=== PATIENT | female | born 1945 | race Caucasian/White ===

== ENCOUNTER 2018-03-06 09:40 | Emergency (ER) | payer MEDICARE, OTHER, SELFPAY ==
[2018-03-06 09:42] VITALS: BP 139/95; PULSE 52; RESP 18; TEMP 36.9; O2SAT 95; BMI 40.4
--- NOTE | 2018-03-06 09:59 | CT_ITS ---
STUDY: CT ABDOMEN AND PELVIS WITHOUT CONTRAST REASON FOR EXAM: Female, 72 years old. RIGHT FLANK PAIN HX-KIDNEY CA,HEART STENT,HTN RADIATION DOSAGE (If Supplied By Facility): CTDIvol = ( 32.43 ) mGy, DLP = ( 1628.59 ) mGycm TECHNIQUE: Transaxial images were obtained from the dome of the diaphragm to the symphysis pubis without oral contrast, and without intravenous contrast. Sagittal and coronal images were reconstructed. Individualized dose optimization techniques were used for this CT. COMPARISON: None. FINDINGS: The visualized lung bases are unremarkable. The visualized portions of the heart are within normal limits. Normal liver. There are surgical clips in the gallbladder fossa consistent with a prior cholecystectomy. Normal spleen. Normal pancreas. Normal right adrenal gland left adrenal gland is not visualized. Normal right kidney. The left kidney is absent presumably has been surgically removed. Normal visualized stomach. Normal small intestine. There are multiple colonic diverticula consistent with diverticulosis. The appendix is visualized and appears normal. There is diffuse atherosclerotic calcification of the abdominal aorta, without a demonstrated aneurysm. Normal inferior vena cava. Normal retroperitoneum. Normal urinary bladder. There is a small umbilical hernia containing fat. There are diffuse degenerative changes of the visualized lumbar spine. CT/Abdomen/Pelvis without Cont IMPRESSION: There is a fat-containing mass in the anterior anterior abdominal wall on the right side measures 10 times centimeter in diameter most likely a lipoma a follow-up may be warranted to ensure stability. Colon diverticulosis. Electronically Signed: Tianna Raymond MD at 11:54 EDT Tel , Service support ,
--- NOTE | 2018-03-06 10:01 | ED.DCSUM_ITS ---
- ER Visit Summary Date of Service: 03/06/18 Chief Complaint: Right back pain History of Present Illness: The patient is a 72 F who states that on of last week she woke up with pain in the right low back. She states that it has been a constant aching/pulsating sensation. It occasionally becomes sharp and stabbing and is particularly worse with movement. Patient states that she saw her doctor on Tuesday who felt it was muscular and she should take Tylenol. Patient states it did not help. She notes nausea. She now notes urinary frequency and increased in her amount of incontinence. She denies any hematuria. She notes no fevers. She states that her bowel movements have been normal. She has had prior left-sided nephrectomy. She has chronic kidney disease stage III. Physical Examination: Afebrile vital signs are stable Gen: Well-nourished well-developed obese Head: Normocephalic atraumatic Eyes: Perrl EOMI ENT: TMs clear no rhinorrhea moist mucous membranes Neck: Supple no lymphadenopathy no JVD nontender CVS: Regular rate rhythm no murmurs normal S1-S2 Respiratory: No distress clear to auscultation bilaterally chest nontender Abdomen: Soft nontender nondistended normal bowel sounds no masses Back: Tender to palpation in the lumbar paraspinal musculature on the right. Extremity: Nontender no edema Skin: Normal color no rash Neuro: alert orientated ?3 CN II-XII intact normal strength sensation reflexes gait cerebellar Psych: Anxious Test Results: Patient was given OxyIR and states it did not really help her pain. CBC BMP with creatinine 1.37 normal white count. Urinalysis which was straight cath was normal. CT of the flank demonstrated a large lipoma but otherwise no acute findings. She received additional value. This point believe this to be muscular. She will follow-up with her doctor I will write for Impression: 1. Right flank pain This note was generated with [employer] dictation software. It may contain incorrect words, spelling, and punctuation that were not noted in review of the chart prior to signing ED Disposition - Plan for ED Patient: Disposition: Home or Assisted Living Chief Complaint: Complaint Instructions: ED Spasm Back No Trauma Prescriptions: Hydrocodone Bitart/Apap 5-325 [[place] 5MG-325MG] 1 tab PO Q6H PRN PRN 3 Days #10 tab PRN Reason: Pain Diazepam [Valium] 5 mg PO Q8 PRN #15 tab PRN Reason: Muscle Spasm Referrals: Randy Saldivar MD [Primary Care Provider] - 3-5 Days if not improving
[2018-03-06] MEDS: oxyCODONE 5 MG Tablet PO (10:08)
[2018-03-06 10:50] LABS: Absolute Neutrophil Count 3.3 X10^3/uL (2.0-7.7); Basophil# 0.01 X10^3/uL; Basophil% 0.2 % (0-1); Eosinophil# 0.09 X10^3/uL; Eosinophils% 1.7 % (0-5); Hematocrit 39.7 % (37-47); Hemoglobin 13.3 g/dl (12.0-15.0); Lymphocyte % 28.4 % (19-41); Mean Corp Hgb Conc 33.5 g/gl (32-36); Mean Corpuscular Hgb 31.4 pg (27.0-32.0); Mean Corpuscular Volume 93.6 fL (81-99); Mean Platelet Vol. 11.2 fl (6.2-12.0); Monocyte# 0.42 X10^3/uL; Monocyte% 7.9 % (0-10); Neutrophil # 3.25 X10^3/uL (2.7-7.7); Neutrophil % 61.4 % (47-70); Platelet Count 152 K/mm3 (150-450); RBC Distribution Width CV 13.8 % (11.6-14.6); RBC Distribution Width SD 45.2 fl (35.1-43.9); Red Blood Count 4.24 M/mm3 (4.2-5.4); White Blood Count 5.3 K/mm3 (4.4-11.0)
[2018-03-06 10:51] LABS: POSITIVE COUNT NO; POSITIVE DIFFERENTIAL NO; POSITIVE MORPHOLOGY NO
[2018-03-06 11:01] LABS: Anion Gap 6 (5-15); BUN 15 mg/dL (7-18); BUN/Creat Ratio 10.9 RATIO (10-20); Chloride 103 mmol/L (98-107); Creatinine, Serum 1.37 mg/dL (0.55-1.02); EST Glomerular Filtration Rate 40 mL/min (>60); Est Glom Filt Rate - Afr Amer 49 mL/min (>60); Estimated Creatinine Clearance 31.16 ml/min; Glucose 103 mg/dL (74-106); Potassium 3.4 mmol/L (3.5-5.1); Sodium Level 139 mmol/L (136-145)
[2018-03-06 11:48] LABS: Mucous, Urine 0 SEEN /hpf (<or=2+); Red Blood Cells-Urine 0 SEEN /hpf (0-5)
[2018-03-06 11:49] LABS: Color, Urine Yellow (Yellow); Glucose, Dipstick Normal (Normal); Ketone-Dipstick Negative (Negative); Leukocyte Esterase-Dipstick 100 /ul (Negative); Nitrite-Dipstick Negative (Negative); Occult Blood-Urine Negative /ul (Negative); Protein-Dipstick Negative (Negative); Urine Bilirubin Dipstick Negative (Negative); Urine Clarity Clear (Clear); Urine Urobilinogen Normal (Normal)
[2018-03-06 11:57] LABS: Bacteria 2+ /hpf (None Seen); Squamous Epithelial Cells - UA 0-5 SEEN /hpf (5-10); White Blood Cells 0-5 SEEN /hpf (0-5)
[2018-03-06 12:33] VITALS: BP 144/60; PULSE 48; RESP 16; O2SAT 96
[2018-03-06] MEDS: Ondansetron ODT 4 MG Tablet PO (12:38)
[2018-03-06 13:56] VITALS: BP 119/67; PULSE 74; RESP 15; O2SAT 98
== END 2018-03-06 13:58 | disposition home or self-care (01) ==
PROVIDERS: Emergency Provider Emergency Medicine; Family Provider Family Medicine; PCP Family Medicine
DX: R10.9 Unspecified abdominal pain (principal); I12.9 Hypertensive chronic kidney disease with stage 1 through stage 4 chronic kidney disease, or unspecified chronic kidney disease; E11.22 Type 2 diabetes mellitus with diabetic chronic kidney disease; N18.3 Chronic kidney disease, stage 3 (moderate); I25.10 Atherosclerotic heart disease of native coronary artery without angina pectoris; E66.9 Obesity, unspecified; Z90.5 Acquired absence of kidney; Z79.82 Long term (current) use of aspirin; Z79.899 Other long term (current) drug therapy
CPT/HCPCS: 74176; 80048; 81001; 85025; 99285; P9612; A4216

== ENCOUNTER 2018-05-25 13:00 | Outpatient (RCR) | payer MEDICARE, OTHER, SELFPAY ==
--- NOTE | 2018-03-17 15:32 | HP.PTEVAL_ITS ---
Patient's Visit Information MICA HART is a 72 year old F referred to Physical Therapy by DELILAH Banuelos with a diagnosis of Thoracic back pain.. Date of Evaluation: 03/17/18 Physical Therapist: JOSLYN McclainT, OC - Visit Plan Frequency: 2x /Week Duration: 4-6 Weeks Plan: 2x/week for 4-6 weeks for LB treatment including NS education and strength , stretching of LB adn TENS with MH as needed. When back feeling better, consider more thourough balance eval and treatment. - Subjective Subjective: My back and upper middle back hurts and muscle spasm taking her to ER last week. They thought it was muscle spasms. Only has one kidney. Gave her vicodin and valium whcih helped. Then went to nurse practitioner who gave her prednisone for 5 days. They help a little bit. Has been in pain for one week. No upper back pain prior. Does hav ehistory of LBP. Uses cane for balance as it is challenged. Just woke up with upper back pain. No different activities. Overall currently is 40+% better than last week. Sleep is OK currently once she gets settled in. Getting up for restroom is bad. has helped her. Does not work, retired from [employer]. Spends day bummin around, has not done that as much lately due to balance more than anything. Also avoiding alot of walking due to this pain. Still goes to grocery store but hurts afterwards. Basic ADLs are OK. - Pain Low back L>R Pain Intensity (Out of 10): 5 Pain Intensity Range: 4, 10 - Objective Walks with cane btu does not use at home. Trasnfers with UE I. Walks without cane I but slow on firm surface. LE Strength 4-/5, pain with L hip flexion. Sensation LE WNL to gross light touch. reflexes 2/3 patella and achilles. LB AROM ext pain on R upper lumbar, R SB hurts and L SB not bad. flexion is OK. HS and gastroc tight. Hurts bad to transition to supine, slightly better with sidelying, tightness in hip flexor. - Balance Scores Functional Gait Assessment Score: 19 % Disability: 36.6700 - Goals Goal 1:: patient report 75% improvement in LBP to 2/10 at worst adn intermittent. Goal Time Frame: 4-6 Weeks Goal 2:: FGA to reduce fall risk Goal Time Frame: 4-6 Weeks Goal 3:: I approp EHP to minimize future problems with back pain. Goal Time Frame: 4-6 Weeks Goal 4:: Trasnition to and fro supine without evidence of pain. Goal Time Frame: 4-6 Weeks - Rehabilitation Potential Physical Therapy Diagnosis: Low back pain Rehabilitation Potential: Fair - Anticipated Interventions Patient/Client Instruction: Educate patient on: Condition, Plan of Care For the Purpose of:: To improve ability of physical actions for home/community/ work/leisure, To improve safety with gait Therapeutic Exercise to Include: Strength training, Balance training, Active ROM , Dynamic Lumbar Stabilization For the Purpose of:: To decrease pain, To increase tolerance to activity/ condition/position, To improve ability of physical actions for home/community/ work/leisure, To improve gait and locomotor functions TENS: Yes Thermo therapy (hot pack): Yes For the Purpose of:: To decrease pain, To decrease swelling/inflammation Thank you for the opportunity to evaluate your patient. For Medicare and Medicare HMO plans, please review the plan of care and approve it. It will need to be FAXED BACK to us at [phone] for Medicare purposes. Please let me know if there are questions or concerns regarding this plan of care. Physician Signature: Date:
--- NOTE | 2018-04-07 10:58 | HP.PTREVAL_ITS ---
Annemarie Rojaslogpedro luis, WINDSURFING INSTRUCTOR-C, It has been my pleasure to treat MICA HART over the last 6 visits for Thoracic back pain.. Please see the progress note below for an update on the physical therapy plan of care! Subjective: Learning how to get out of bed has helped. Pain last couple days has been nonexistent. Neutral spine. Doing ex at home for neutral spine. Wants to wrok on balance, using cane when doesn't forget but does not like it. Turning is challenging but no dizzyness. Objective/Function: VOR very challenging for patient. FGA same as last time. LB ROM WFL and without paion today, starteed to get some mild transient pain as she walked further today 250 feet. OVERALL MUCH BETTER ON LBO AND NOW NEEDS BALANCE WORK. Plan Plan: 2X/WEEK FOR 3-4 WEEKS... 1. please teach for HEP a bug ex or two for NS DLS and give pics. Then main focus should be on balance...confidence with walking and turning, VOR ambulation and stance, weight shifts forward and bend and recover. Work to HEP. Goals Goal 1:: patient report 75% improvement in LBP to 2/10 at worst adn intermittent. Goal Time Frame: 4-6 Weeks Goal Progress: Goal Met Goal 2:: FGA to reduce fall risk Goal Time Frame: 4-6 Weeks Goal Progress: still approp. Goal 3:: I approp EHP to minimize future problems with back pain. Goal Time Frame: 4-6 Weeks Goal Progress: Progressing Goal 4:: Trasnition to and fro supine without evidence of pain. Goal Time Frame: 4-6 Weeks Goal Progress: Goal Met Anticipated Interventions Patient/Client Instruction: Educate patient on: Condition, Plan of Care For the Purpose of:: To improve ability of physical actions for home/community/ work/leisure, To improve safety with gait Therapeutic Exercise to Include: Strength training, Balance training, Active ROM , Dynamic Lumbar Stabilization For the Purpose of:: To decrease pain, To increase tolerance to activity/ condition/position, To improve ability of physical actions for home/community/ work/leisure, To improve gait and locomotor functions TENS: Yes Thermo therapy (hot pack): Yes For the Purpose of:: To decrease pain, To decrease swelling/inflammation Please do not hesitate to contact me at [phone] by phone or Fax: if you have questions or concerns regarding this new plan of care! Sincerely, Giuseppe Pires, DPT, OC
--- NOTE | 2018-04-27 13:54 | HP.PTREVAL ---
Annemarie Podlogpedro luis, MANUFACTURING ENGINEERING PROFESSOR-C, It has been my pleasure to treat MICA HART over the last 11 visits for Thoracic back pain.. Please see the progress note below for an update on the physical therapy plan of care! Subjective: Tired but back pain better. Just slightly achy in LB but no bad pain that brought her here in the last two weeks. Balance and movement better at home. Getting out of bed well. Showering and transfers are good. To doctor end of May. Doing back strength and balance work at home. Wants ot be abole to walk by self without cane. Has done it a little at home but feels wobbly out and about. Objective/Function: Pt one point improved on FGA. Gets up out of chair without need for UE. Unable to walk and do VOR at same time. Eyes will not stay on target even in stance. Steps are reciprocal with one rail but very tired and mild SOB at end. No c/o LBP and ROM WFL. Plan Plan: 2x/week for 4 weeks. 1. gait without cane with challenges of CV and balance. 2. VOR balance progression. Fair prognosis Goals Goal 1:: patient report 75% improvement in LBP to 2/10 at worst adn intermittent. Goal Time Frame: 4-6 Weeks Goal Progress: Goal Met Goal 2:: FGA to reduce fall risk Goal Time Frame: 4-6 Weeks Goal Progress: progressing slowly Goal 3:: I approp EHP to minimize future problems with back pain. Goal Time Frame: 4-6 Weeks Goal Progress: Goal Met Goal 4:: Trasnition to and fro supine without evidence of pain. Goal Time Frame: 4-6 Weeks Goal Progress: Goal Met Goal 5:: VOR standing without LOB for 60 sec Goal Time Frame: 2-4 Weeks Goal Progress: NEW GOAL Goal 6:: Pt feel comfortable and be safe walking in community without cane 50% of time. Goal Time Frame: 2-4 Weeks Goal Progress: NEW GOAL Anticipated Interventions Patient/Client Instruction: Educate patient on: Condition, Plan of Care For the Purpose of:: To improve ability of physical actions for home/community/work/leisure, To improve safety with gait Therapeutic Exercise to Include: Strength training, Balance training, Active ROM, Dynamic Lumbar Stabilization For the Purpose of:: To decrease pain, To increase tolerance to activity/condition/position, To improve ability of physical actions for home/community/work/leisure, To improve gait and locomotor functions TENS: Yes Thermo therapy (hot pack): Yes For the Purpose of:: To decrease pain, To decrease swelling/inflammation Please do not hesitate to contact me at [phone] by phone or if you have questions or concerns regarding this new plan of care! Sincerely, Giuseppe Pires, DPT, OC
--- NOTE | 2018-05-29 12:20 | HP.PTDCNRP_ITS ---
HP - Discharge Summary (1) - Patient Information MICA HART was seen in my office for initial evaluation on 03/17/18. The following Plan of Care was established for this patient: Initial Frequency: 2x /Week Initial Duration: 4-6 Weeks - Anticipated Interventions Patient/Client Instruction: Educate patient on: Condition, Plan of Care For the Purpose of:: To improve ability of physical actions for home/community/w ork/leisure, To improve safety with gait Therapeutic Exercise to Include: Strength training, Balance training, Active ROM, Dynamic Lumbar Stabilization For the Purpose of:: To decrease pain, To increase tolerance to activity/condition/position, To improve ability of physical actions for home/community/work/leisure, To improve gait and locomotor functions TENS: Yes Thermo therapy (hot pack): Yes For the Purpose of:: To decrease pain, To decrease swelling/inflammation This patient was last seen in our office 05/25/18. Pertinent comments regarding their Physical therapy will appear below: Pt seen 15 visits of POC. Has cancelled a whole bunch of visits recently including her recheck stating she wanted to f/u with her primary care before having any more PT. Will discontinue from PT at patient's request. At this point I will be discontinuing this patient from physical therapy. I would be happy to see this patient again in the future if found appropriate by the physician. Thank you! Giuseppe Pires, DPT, OC
== END 2018-05-25 19:00 | disposition home or self-care (01) ==
LOC: PT 13:00
PROVIDERS: Family Provider Family Medicine; PCP Family Medicine; Visit Provider Nurse Practitioner Primary Care
DX: M54.6 Pain in thoracic spine (principal)
CPT/HCPCS: 97110; 97162; 97530

== ENCOUNTER → 2018-09-22 12:21 | Outpatient (CLI) | payer MEDICARE, OTHER, SELFPAY ==
--- NOTE | 2018-09-22 12:24 | BI_ITS ---
MAMMOGRAPHY - BILATERAL SCREENING REASON FOR EXAM: Female, 73 years old. Routine annual screening examination. PERTINENT HISTORY: Grandmother with breast cancer. Aunt with breast cancer. TECHNIQUE: Digital bilateral breast jonah (3D mammographic acquisition) in the CC and MLO projections. 2-D mediolateral oblique (MLO) and craniocaudad (CC) views of both breasts were obtained. CAD: Full Field Digital Mammography with Computer Added Detection was performed. COMPARISON: Comparison is made with prior examination dated October 11, 2016 and November 06, 2014. FINDINGS: Breast Composition: There are scattered areas of fibroglandular density. There are no dominant masses or suspicious calcifications. Stable benign-appearing bilateral axillary lymph nodes. Stable 6 mm well-defined nodule in the upper lateral portion of the left breast. No other significant abnormalities are identified. There has been no significant change since the prior study. BI/SCREENING MAMM (CAD), BILAT IMPRESSION: Stable bilateral screening mammogram. Yearly follow-up mammogram recommended. (A) ASSESSMENT CATEGORY: BIRADS Category 2: Benign. A letter regarding these results will be sent to the patient by the facility within 30 days. Approximately 10% of breast cancers are not detected by mammography. A normal mammogram should not delay biopsy of a clinically suspicious abnormality. [id number] Electronically Signed: Dov Olivas MD at 14:28 EST , Service support ,
== END ==
PROVIDERS: Family Provider Family Medicine; PCP Family Medicine; Visit Provider Nurse Practitioner Primary Care
DX: Z12.31 Encounter for screening mammogram for malignant neoplasm of breast (principal)
CPT/HCPCS: 77063; 77067

== ENCOUNTER 2018-11-24 12:00 | Outpatient (RCR) | payer MEDICARE, OTHER, SELFPAY ==
--- NOTE | 2018-10-31 12:31 | HP.PTEVAL_ITS ---
Patient's Visit Information MICA HART is a 73 year old F referred to Physical Therapy by Randy Saldivar MD with a diagnosis of recurrent falls and vertigo.. Date of Evaluation: 10/31/18 Physical Therapist: Giuseppe Pires DPT, OCS, CSCS - Visit Plan Frequency: 2x /Week Duration: 4-6 Weeks Plan: 2x/week for 4-6 for balance, strength adn conditioning toward HEP. Monitor need for further vestibular interventions. Next session recheck positional as Misha treatment was questionable due to patients immobility in rolling. Will need to schedule rest of plan of care depending on psoitional and possible HEP of VOR. - Subjective Findings: Doctor wanted to have therapy on balance due to falling. Fell two months ago for no reason. Uses wh walker all the time. Has not fallen with the walker. Used it for 6 weeks as was falling alot. Had cane prior. Also states she fell 3 weeks ago coming out of residence and started veering L and could not stop. Hard to get up off of floor without help of big son. Gets dizzy spinning 3x/week and lies down. Described as SANTANA. Lying down seems to help it. No treatment for SANTANA , will see [facility] neurologist 11/23. First time. Has neuropathy but no diabetes. Numbness in feet and not sure why. Has foot doctor who says she is not feeling her legs right. Sleeping well. Not employed but been busy with son's surgery [place] him [place] Home today. Enjoys being on the go at flea Markets and out to lunch. Hasn't been able to do that due to falls. Been falling for 14 months. Had PT in May but did not finish due to fall and crack ribs. Basic ADL: dressing Ok, bathroom OK, showers self with bathboard to sit on. Steps has 3 and has railing. - Objective Walks with wheeled rollator back to PT I, trasnfer chair I. Steps prefers R and needs rail, very weak and hard to push up step. Walked 250 feet and then needed break due to SOB. C/S aROM WFL at 50 B rotationa dn 40 ext without pain., UE AROM WFL to 125 elevation. reflexes 1/3 bi and tri. Sensation UE WNL to gross light toucha nd feet seem to have some deficits to gross light touch distally. Strength LE 4-/5 to testing. Oculomotor: pursuit is saccadic to the R, Saccadesa re OK. VOR gives dizzyness after 15 seconds horiz 2/10 for 15 seconds. convergence is slow,-skew eye deviation. - head thrust. - R hallpike, - L hallpike but asymmtric dizzyness with L Hallpike and treated with L Misha. coordination to reciprocal toe tap is poor. Heel toe raises able with support. - Balance Scores Functional Gait Assessment Score: 18 % Disability: 40.0000 CATSIB Score (Max score 120 seconds): 60 - Goals Goal 1:: FGa to diminish fall risk. Goal Time Frame: 4-6 Weeks Goal 2:: Abolish vertigo feelings of dizzyness Goal Time Frame: 4-6 Weeks Goal 3:: Pt able to fo out to lunch with friends without being warn out;. Goal Time Frame: 4-6 Weeks Goal 4:: I approp HEp to minimize future risk. Goal Time Frame: 4-6 Weeks - Rehabilitation Potential Physical Therapy Diagnosis: imbalance and vertigo. Rehabilitation Potential: Fair - Anticipated Interventions Patient/Client Instruction: Educate patient on: Condition, Plan of Care For the Purpose of:: To improve muscle performance and motor function, To improve ability of physical actions for home/community/work/leisure, To improve safety Therapeutic Exercise to Include: Strength training, Endurance training, Balance training, Gait and locomotor training Comment: vestibular ex For the Purpose of:: To increase tolerance to activity/condition/position, To improve ability of physical actions for home/community/work/leisure, To improve safety Thank you for the opportunity to evaluate your patient. For Medicare and Medicare HMO plans, please review the plan of care and approve it. It will need to be FAXED BACK to us at [phone] for Medicare purposes. For Medicare only, by signing this I certify the plan of care. Please let me know if there are questions or concerns regarding this plan of care. Physician Signature: Date:
--- NOTE | 2018-11-24 12:24 | HP.PTDCSUM_ITS ---
HP - PT D/C Summary It has been my pleasure to treat MICA HART under orders from Randy Saldivar MD, for the diagnosis of recurrent falls and vertigo. for a total of 4 visit(s). Discharge Date: 11/24/18 Please see the following information for a summary of their discharge status. - Subjective Subjective: Better, a good week and no bad SANTANA. Went to [place] yesterday. Will f/u in a month. Balance feels better. Getting around real good with wh walker. Doing VOR and back exercises. They are no problem. Feels stable with the walker and does nto mind using it. - Overall Improvement % Improvement: 80 - Objective Objective/Function: FGA +4 overall and happily using the wh walker. Walks quickly and efficiently with it. Happy. No dizzyness with head turns or nods. OVERALL MUCH BETTER AND WANTS TO COTNINUE ON HER OWN. - Goals Goal 1:: FGa to diminish fall risk. Goal Progress: Goal Met Goal 2:: Abolish vertigo feelings of dizzyness Goal Progress: Goal Met Goal 3:: Pt able to fo out to lunch with friends without being warn out;. Goal Progress: Goal Met Goal 4:: I approp HEp to minimize future risk. Goal Progress: Goal Met - Plan Plan: D/C - D/C Information Discharge Comments: Doing better and happily using wh walker. Will cotninue HEP and f/u with doctor next week. If there are questions or concerns regarding this patient's physical therapy, please feel free to call me at [phone]. Thank you for the referral of this patient. Sincerely, Giuseppe Pires, DPT, OCS, CSCS
== END 2018-11-24 16:17 | disposition home or self-care (01) ==
LOC: PT 12:00
PROVIDERS: Family Provider Family Medicine; PCP Family Medicine; Referring Provider Family Medicine; Visit Provider Family Medicine
DX: R29.6 Repeated falls (principal); R42 Dizziness and giddiness
CPT/HCPCS: 97163; 97530

== ENCOUNTER → 2020-02-22 | Outpatient (CLI) | payer MEDICARE, OTHER, SELFPAY ==
--- NOTE | 2020-02-22 13:35 | PFTCOMP ---
COMPLETE PULMONARY FUNCTION TEST INTERPRETATION Brief HPI: Patient is a 74 year old female, currently under the care of Dr. Mcclendon, who presents to [facility] for complete pulmonary function tests secondary to diagnosis of dyspnea. Respiratory therapist reports good effort and reproducible results. Interpretation: Forced expiration spirometry shows no large airways obstructive ventilatory defect with an FEV1 of 101% predicted. There is no significant bronchodilator response by strict ATS criteria. Spirograms are of good quality and plateau normally. The respiratory flow volume loop shows a normal pattern. Lung volumes by body plethysmography show a normal total lung capacity at 4.57 L, 100% predicted. All other lung volumes are within normal limits. Diffusion capacity by carbon monoxide is decreased at 63% predicted. The airway resistance is normal. No previous pulmonary function tests were available for review. Impression: Isolated reduction in diffusion capacity consistent with a pulmonary vascular disorder
== END | disposition home or self-care (01) ==
PROVIDERS: PCP Family Medicine
DX: R06.02 Shortness of breath (principal); R06.09 Other forms of dyspnea
CPT/HCPCS: 94060; 94726; 94729

== ENCOUNTER 2021-10-01 13:19 | Outpatient (CLI) | payer MEDICARE, OTHER, SELFPAY ==
--- NOTE | 2021-10-01 13:24 | BI_ITS ---
MAMMOGRAPHY - BILATERAL SCREENING REASON FOR EXAM: Female, 76 years old. Routine annual screening examination. PERTINENT HISTORY: Grandmother with breast cancer. Aunt with breast cancer. TECHNIQUE: Digital bilateral breast aliya (3D mammographic acquisition) in the CC and MLO projections. 2-D mediolateral oblique (MLO) and craniocaudad (CC) views of both breasts were obtained. CAD: Full Field Digital Mammography with Computer Added Detection was performed. COMPARISON: Comparison is made with prior study dated 09/22/2018 and 10/11/2016. FINDINGS: Breast Composition: There are scattered areas of fibroglandular density. There are no dominant masses or suspicious calcifications. Stable small fat-containing bilateral axillary lymph nodes. No other significant abnormalities are identified. There has been no significant change since the prior study. BI/SCRN MAMM (CAD)W/ALIYA BILAT IMPRESSION: Stable bilateral screening mammogram. Yearly follow-up mammogram recommended. (A) ASSESSMENT CATEGORY: BIRADS Category 2: Benign. A letter regarding these results will be sent to the patient by the facility within 30 days. Approximately 10% of breast cancers are not detected by mammography. A normal mammogram should not delay biopsy of a clinically suspicious abnormality. [id number] Electronically Signed: Dov Olivas MD at 14:11 EST ,
== END 2021-10-01 23:59 | disposition home or self-care (01) ==
LOC: OPBI 13:19
PROVIDERS: PCP Family Medicine; Referring Provider Family Medicine; Visit Provider Family Medicine
DX: Z12.31 Encounter for screening mammogram for malignant neoplasm of breast (principal)
CPT/HCPCS: 77063; 77067

== ENCOUNTER 2023-06-01 09:29 | Emergency (ER) | payer MEDICARE, OTHER, SELFPAY ==
[2023-06-01 09:29] VITALS: BP 119/51; PULSE 60; RESP 15; TEMP 36.4; O2SAT 95; BMI 53.0
--- NOTE | 2023-06-01 09:56 | EDS_ITS ---
HPI History of Present Illness Chief Complaint: Weakness PFSH PFSH Home Medications acetaminophen 500 mg tablet 1,000 mg (2 x 500 mg) PO Q8H PRN PRN Pain ##90 04/05/16 [Rx Last Taken Unknown] aspirin 81 mg tablet,delayed release 81 mg PO DAILY@0800 ##30 04/05/16 [Rx Last Taken Unknown] bupropion HCl 150 mg tablet,12 hr sustained-release 150 mg PO BID ##60 04/05/16 [Rx Last Taken Unknown] carvedilol 6.25 mg tablet 6.25 mg PO BIDCM ##60 04/05/16 [Rx Last Taken Unknown] levothyroxine 100 mcg tablet 100 mcg PO DAILY@0600 ##30 04/05/16 [Rx Last Taken Unknown] losartan 50 mg tablet 50 mg PO DAILY ##30 04/05/16 [Rx Last Taken Unknown] nitroglycerin 0.4 mg sublingual tablet 0.4 mg sublingual Q5M PRN Cardiac/Chest Pain ##30 04/05/16 [Rx Last Taken Unknown] nystatin 100,000 unit/gram topical ointment 1 applic topical 0600,2200 ##1 04/05/16 [Rx Last Taken Unknown] polyethylene glycol 3350 17 gram oral powder packet 34 g PO DAILY ##30 04/05/16 [Rx Last Taken Unknown] pravastatin 80 mg tablet 80 mg PO QHS ##30 04/05/16 [Rx Last Taken Unknown] diazepam 5 mg tablet 5 mg PO Q8 PRN Muscle Spasm #15 tabs 03/06/18 [Rx Last Taken Unknown] hydrocodone-acetaminophen 5-325mg 5mg-325mg 1 tab PO Q6H PRN PRN Pain 3 days #10 tabs 03/06/18 [Rx Last Taken Unknown] sertraline 50 mg tablet 1 tab PO DAILY 03/06/18 [History Last Taken Unknown] Allergy/AdvReac Type Severity Reaction Status Date / Time acetaminophen [From Vicodin] Allergy Unknown Verified 03/06/18 09:44 adhesive tape Allergy Unknown Verified 03/06/18 09:44 amitriptyline Allergy Unknown Verified 03/06/18 09:44 codeine Allergy Unknown Verified 03/06/18 09:44 diclofenac [From Voltaren] Allergy Unknown Verified 03/06/18 09:44 flurbiprofen Allergy Unknown Verified 03/06/18 09:44 hydrochlorothiazide Allergy Unknown Verified 03/06/18 09:44 [From Dyazide] hydrocodone [From Vicodin] Allergy Unknown Verified 03/06/18 09:44 ibuprofen [From Motrin] Allergy Unknown Verified 03/06/18 09:44 lisinopril [From Prinivil] Allergy Unknown Verified 03/06/18 09:44 morphine Allergy Unknown Verified 03/06/18 09:44 Penicillins Allergy Unknown Verified 03/06/18 09:44 ramipril [From Altace] Allergy Unknown Verified 03/06/18 09:44 Sulfa (Sulfonamide Allergy Unknown Verified 03/06/18 09:44 Antibiotics) Tetracyclines Allergy Unknown Verified 03/06/18 09:44 thiethylperazine Allergy Unknown Verified 03/06/18 09:44 [From Torecan] triamterene [From Dyazide] Allergy Unknown Verified 03/06/18 09:44 Social History Smoking Status: Former smoker EXAM Physical Exam Const Vital Signs: 06/01/23 09:29 06/01/23 09:35 06/01/23 10:36 Temperature 97.5 F L Temperature Source Temporal Pulse Rate 60 Respiratory Rate 15 Respiratory Effort Normal Non-Labored Respiratory Pattern Normal Blood Pressure 119/51 L Blood Pressure Mean 73 Pulse Ox 95 Oxygen Delivery Method Room Air Room Air 06/01/23 13:15 Temperature Temperature Source Pulse Rate 75 Respiratory Rate 16 Respiratory Effort Respiratory Pattern Blood Pressure 138/77 H Blood Pressure Mean 97 Pulse Ox 96 Oxygen Delivery Method MDM MDM MDM Narrative Medical decision making narrative: HISTORY OF PRESENT ILLNESS: 77-year-old female here with diffuse weakness. States she had COVID and flu vaccine yesterday and is now not feeling well. She also complains of nausea. Notes this began last night and has continued till today. No focal weakness. Does note some exertional shortness of breath but no cough. No chest pain. Denies any bleeding diathesis. Denies any increased urination. REVIEW OF SYSTEMS: Pertinent positives: Diffuse weakness, nausea, shortness of breath Pertinent negatives: Focal weakness, syncope, chest pain PHYSICAL EXAM: Nursing triage notes reviewed, Vital signs reviewed Constitutional: please see mdm HENT: MMM Eyes: Pupils equal round and reactive to light, Extraocular muscles intact Neck: No stridor, no JVD, full neck ROM Lungs: Clear to auscultation, No wheezing or rales. No increased work of breathing, no conversational dyspnea, no accessory muscle use, no nasal flaring. No respiratory distress noted Heart: Regular rate and rhythm, No murmurs, No rubs and No gallops, 2+ distal pulses (radial, femoral, posterior tibial) in all extremities Abdomen: Soft, there is no tenderness, rigidity, rebound or guarding, no obvious peritoneal signs, no palpable pulsatile abdominal masses, no auscultated abdominal bruit : No CVAT Extremities: No edema Neuro: No focal neurological deficits, cranial nerves II through XII intact, 5/5 strength in all extremities. Intact sensation to light touch in all extremities, 2+ reflexes bilateral patella tendons. Normal gait. No ataxia. Skin: No rash or lesions noted MEDICAL DECISION MAKING: Chief Complaint: Weakness, fatigue External records reviewed: No recent ED visits Factors affecting care: CAD, hyperlipidemia, type 2 diabetes, hypertension Social determinants of health: no former smoker History obtained from others: EMS, family Consults: none MDM Narrative: Patient was hemodynamically stable, afebrile, nontoxic-appearing. Exam without focal neurologic deficits. I considered the following differential diagnosis: Adverse effect of vaccine dehydration, electrolyte disturbance, ACS, arrhythmia, anemia, acute CVA ALL IMAGES (IF OBTAINED) HAVE BEEN PERSONALLY REVIEWED AND INTERPRETED BY MYSELF. EKG with sinus bradycardia, intoxication, no murmurs, no STEMI CBC with no leukocytosis, no anemia and, noted thrombocytopenia BMP without significant electrode abnormality, baseline CKD, Troponin is negative, no evidence of myocardial ischemia BNP within normal limits suggestive of no significant ventricular stretch I have personally reviewed the patient's chest x-ray. Chest x-ray is unremarkable for pulmonary edema, pneumothorax, pneumonia or focal cardiopulm onary abnormality. COVID-negative The synthesis of the patient's history, physical exam, labs images are consistent with likely adverse reaction to vaccination. Likely immune response from vaccination is causing her symptoms. She was instructed take Tylenol, ibuprofen and to return if symptoms change or worsen. There is no evidence to suggest ACS, arrhythmia, electrolyte abnormality, anemia. The patient is appropriate discharge home. Strict return precautions were discussed. The patient and/or family, caregivers express understanding. The patient and/or family, caregivers agrees with the plan. Shared decision making: I will have a discussion with the patient and or visitors regarding risk/benefits of further testing or admission. They will be made aware of of the risk/benefits inherent in this decision they will be given the opportunity to voice understanding. Total critical care time today provided was at least 0 minutes. This excludes separately billable procedures. Critical care time (if documented) is secondary to the patient having high probability of clinically significant/life threatening deterioration in the patient's condition which required my urgent intervention. Impression: 1. Adverse reaction to vaccination 2. Thrombocytopenia 3. CKD Dispo: Discharge Lab Data Labs: Laboratory Results - last 24 hr 06/01/23 10:35 WBC 5.5 RBC 4.11 L Hgb 12.4 Hct 40.8 MCV 99.3 H MCH 30.2 MCHC 30.4 L RDW Std Deviation 52.8 H RDW Coeff of Mandy 14.6 Plt Count 117 L MPV 11.5 Immature Gran % (Auto) 0.600 Neut % (Auto) 85.2 H Lymph % (Auto) 5.0 L [place] % (Auto) 7.7 Eos % (Auto) 1.1 Baso % (Auto) 0.4 Absolute Neuts (auto) 4.7 Absolute Lymphs (auto) 0.27 L Nucleated RBC % 0 Differential Comment COMMENT Sodium 137 Potassium 4.2 Chloride 111 H Carbon Dioxide 23.0 Anion Gap 3 L BUN 13 Creatinine 1.21 H Estim Creat Clear Calc 32.72 Est GFR (MDRD) Af Amer 56 L Est GFR (MDRD) Non-Af 46 L BUN/Creatinine Ratio 10.7 Glucose 137 H Calcium 8.2 L Troponin I High Sens 9 B-Natriuretic Peptide 67.7 Radiography Diagnostic Testing: Clinical Impression(s) from Imaging Studies Chest X-Ray 06/01/23 10:45 IMPRESSION: No radiographic evidence of acute cardiopulmonary disease. Electronically Signed: Layton Neri MD at 11:05 EDT , Discharge Plan Triage Chief Complaint: Weakness ED Provider: Tano Calderon Dx/Rx/DC Orders Instructions: ED Weakness (Uncertain Cause) Prescriptions: No Action losartan 50 MG tablet 50 mg PO DAILY Qty: 30 0RF bupropion HCl 150 MG tablet sustained-release 12 hr 150 mg PO BID Qty: 60 0RF carvedilol 6.25 MG tablet 6.25 mg PO BIDCM Qty: 60 0RF polyethylene glycol 3350 17 GM powder in packet 34 g PO DAILY Qty: 30 0RF nystatin 1 APPLIC ointment 1 applic topical 0600,2200 Qty: 1 0RF aspirin 81 MG tablet 81 mg PO DAILY@0800 Qty: 30 0RF acetaminophen 500 MG tablet 1,000 mg PO Q8H PRN PRN (Reason: Pain) Qty: 90 0RF levothyroxine 100 MCG tablet 100 mcg PO DAILY@0600 Qty: 30 0RF pravastatin 80 MG tablet 80 mg PO QHS Qty: 30 0RF nitroglycerin 0.4 MG tablet 0.4 mg sublingual Q5M PRN (Reason: Cardiac/Chest Pain) Qty: 30 0RF sertraline 50 MG tablet 1 tab PO DAILY Patient Comments: diazepam 5 MG tablet 5 mg PO Q8 PRN (Reason: Muscle Spasm) Qty: 15 0RF hydrocodone-acetaminophen 1 TABLET tablet 1 tab PO Q6H PRN PRN (Reason: Pain) 3 Days Qty: 10 0RF Primary Care Provider: Randy Saldivar Referrals: Randy Saldivar MD [Primary Care Provider] - Activity Restrictions/Additional Instructions: Thank you for trusting us with your care today! Please take Tylenol (2 pills, 650 mg), ibuprofen (2 pills, 400 mg) every 6 hours as needed for pain and fever control. Please return to the emergency department if your symptoms change or worsen. Please follow with your primary care physician for further outpatient evaluation and management. Disposition Disposition: Home, Self Care Discharge Date/Time: 06/01/23 13:16
--- NOTE | 2023-06-01 10:04 | EKG12_ITS ---
Test Reason : Blood Pressure : / mmHG Vent. Rate : 059 BPM Atrial Rate : 059 BPM P-R Int : 194 ms QRS Dur : 094 ms QT Int : 436 ms P-R-T Axes : 033 -03 -12 degrees QTc Int : 431 ms Sinus bradycardia Nonspecific ST abnormality Abnormal ECG Confirmed by KAREN CAMPOS, DEZ ([id number]), publication editor FRANCISCO ARORA ([id number]) on 06/03/2023 7:06:26 AM Referred By: Confirmed By:JULIETH JONES MD
--- NOTE | 2023-06-01 10:22 | CM.ED ---
Social Work SW performed chart review; ADs not on file. SW met with patient and patient's and introduced self and role as [facility] SW. Patient lying on hospital bed and agreeable to speak with SW with patient's present. SW inquired about completion of advanced directives. Patient verified LW and HCPOA documents are complete. Patient reports patient's , Hitesh is HCPOA and alternate is patient's brother, Vu. SW encouraged patient to provide a copy to add to patient's chart when able, patient voiced understanding. Sue Graham MSW, CAROLEE
[2023-06-01] MEDS: Ketorolac 15 MG/ML Vial IM (10:41)
[2023-06-01] MEDS: 0.9% Normal Saline (500mL Bag) 500 ML 999 ML IV (10:42)
[2023-06-01 10:44] LABS: Absolute Lymphocyte Count 0.27 X10^3/uL (0.83-4.51); Absolute Neutrophil Count 4.7 X10^3/uL (2.0-7.7); Basophil# 0.02 X10^3/uL; Basophil% 0.4 % (0-1); Eosinophil# 0.06 X10^3/uL; Eosinophils% 1.1 % (0-5); Hematocrit 40.8 % (37-47); Hemoglobin 12.4 g/dL (12.0-15.0); Lymphocyte # 0.27 X10^3/ul (0.83-4.51); Mean Corp Hgb Conc 30.4 g/dL (32-36); Mean Corpuscular Hgb 30.2 pg (27.0-32.0); Mean Corpuscular Volume 99.3 fL (81-99); Mean Platelet Vol. 11.5 fl (6.2-12.0); Monocyte# 0.42 X10^3/uL; Monocyte% 7.7 % (0-10); NRBC Flagged by Analyzer 0 % (0-5); Neutrophil # 4.65 X10^3/uL (2.7-7.7); Neutrophil % 85.2 % (47-70); POSITIVE DIFFERENTIAL YES; Platelet Count 117 K/mm3 (150-450); RBC Distribution Width CV 14.6 % (11.6-14.6); RBC Distribution Width SD 52.8 fl (35.1-43.9); Red Blood Count 4.11 M/mm3 (4.2-5.4); White Blood Count 5.5 K/mm3 (4.4-11.0)
--- NOTE | 2023-06-01 10:45 | RAD_ITS ---
INDICATION: Shortness of breath EXAMINATION/TECHNIQUE: X-RAY - XR Chest 1 View COMPARISON: Prior study dated: 03/30/2016. FINDINGS: LINES/DEVICES: None. LUNGS: No consolidation, edema or effusion. No pneumothorax. MEDIASTINUM AND CARDIOVASCULAR STRUCTURES: Cardiac silhouette not enlarged. Central airways and mediastinal contour are unremarkable. BONES AND SOFT TISSUES: Unremarkable. RAD/Chest 1 View (Portable) IMPRESSION: No radiographic evidence of acute cardiopulmonary disease. Electronically Signed: Layton Neri MD at 11:05 EDT ,
[2023-06-01 10:49] LABS: Differential Indicated SCAN CRITERIA MET
[2023-06-01 11:02] LABS: BNP,B-Type NATRIURETIC PEPTIDE 67.7 pg/mL (0-100)
[2023-06-01 11:03] LABS: Anion Gap 3 (5-15); BUN 13 mg/dL (7-18); BUN/Creat Ratio 10.7 RATIO (10-20); Calcium,Total 8.2 mg/dL (8.5-10.1); Chloride 111 mmol/L (98-107); Creatinine, Serum 1.21 mg/dL (0.55-1.02); EST Glomerular Filtration Rate 46 mL/min (>60); Est Glom Filt Rate - Afr Amer 56 mL/min (>60); Estimated Creatinine Clearance 32.72 ml/min; Glucose 137 mg/dL (74-106); Potassium 4.2 mmol/L (3.5-5.1); Sodium Level 137 mmol/L (136-145); Troponin-I HS 9 pg/mL (3.0-54.0)
[2023-06-01 13:15] VITALS: BP 138/77; PULSE 75; RESP 16; O2SAT 96
== END 2023-06-01 13:16 | disposition home or self-care (01) ==
PROVIDERS: Emergency Provider Emergency Medicine; PCP Family Medicine; Visit Provider Emergency Medicine
DX: R06.09 Other forms of dyspnea (principal); E11.22 Type 2 diabetes mellitus with diabetic chronic kidney disease; D69.6 Thrombocytopenia, unspecified; T50.B95A Adverse effect of other viral vaccines, initial encounter; N18.9 Chronic kidney disease, unspecified; I25.10 Atherosclerotic heart disease of native coronary artery without angina pectoris; Z87.891 Personal history of nicotine dependence; I12.9 Hypertensive chronic kidney disease with stage 1 through stage 4 chronic kidney disease, or unspecified chronic kidney disease; E78.5 Hyperlipidemia, unspecified; R00.1 Bradycardia, unspecified
CPT/HCPCS: 71045; 80048; 83880; 84484; 85025; 87428; 93005; 96360; 96372; 99285; J7040; A4216

== ENCOUNTER 2023-10-16 12:38 | Emergency (ER) | payer MEDICARE, OTHER, SELFPAY ==
[2023-10-16 12:40] VITALS: PULSE 52; RESP 16; TEMP 36.4; O2SAT 95; BMI 49.5
[2023-10-16 12:47] VITALS: O2SAT 94
[2023-10-16 12:50] VITALS: BP 129/60; PULSE 53; RESP 17; O2SAT 95
--- NOTE | 2023-10-16 12:52 | ED.VIS.FALL ---
HPI <IRMA Barker - Last Filed: 10/16/23 14:18> HPI - Fall History of Present Illness Chief Complaint: Fall Narrative Narrative: 78-year-old female lost her balance in the garage and landed on her left side injuring her rib cage. She was unable to get up and was brought in by EMS. She states her right cheek must of touched the ground because there is a small red kerrie but she does not think she hit her head. No loss of consciousness or blood thinners. She has rib pain with movement and taking a deep breath. No shortness of breath. No abdominal pain or vomiting. No blood thinners. No pain in her upper or lower extremities. [facility] <IRMA Barker - Last Filed: 10/16/23 14:18> [facility] Medical History (Updated 10/16/23 @ 13:47 by IRMA Barker) Arthritis CKD (chronic kidney disease) stage 3, GFR 30-59 ml/min H/O malignant neoplasm of kidney Heart disease Hypothyroid Osteoporosis Pre-diabetes Home Medications acetaminophen 500 mg tablet 1,000 mg (2 x 500 mg) PO Q8H PRN PRN Pain ##90 04/05/16 [Rx Last Taken Unknown] aspirin 81 mg tablet,delayed release 81 mg PO DAILY@0800 ##30 04/05/16 [Rx Last Taken Unknown] bupropion HCl 150 mg tablet,12 hr sustained-release 150 mg PO BID ##60 04/05/16 [Rx Last Taken Unknown] carvedilol 6.25 mg tablet 6.25 mg PO BIDCM ##60 04/05/16 [Rx Last Taken Unknown] levothyroxine 100 mcg tablet 100 mcg PO DAILY@0600 ##30 04/05/16 [Rx Last Taken Unknown] losartan 50 mg tablet 50 mg PO DAILY ##30 04/05/16 [Rx Last Taken Unknown] nitroglycerin 0.4 mg sublingual tablet 0.4 mg sublingual Q5M PRN Cardiac/Chest Pain ##30 04/05/16 [Rx Last Taken Unknown] nystatin 100,000 unit/gram topical ointment 1 applic topical 0600,2200 ##1 04/05/16 [Rx Last Taken Unknown] polyethylene glycol 3350 17 gram oral powder packet 34 g PO DAILY ##30 04/05/16 [Rx Last Taken Unknown] pravastatin 80 mg tablet 80 mg PO QHS ##30 04/05/16 [Rx Last Taken Unknown] diazepam 5 mg tablet 5 mg PO Q8 PRN Muscle Spasm #15 tabs 03/06/18 [Rx Last Taken Unknown] hydrocodone-acetaminophen 5-325mg 5mg-325mg 1 tab PO Q6H PRN PRN Pain 3 days #10 tabs 03/06/18 [Rx Last Taken Unknown] sertraline 50 mg tablet 1 tab PO DAILY 03/06/18 [History Last Taken Unknown] lidocaine 5 % topical patch (Lidoderm) 1 patch topical DAILY #15 ea 10/16/23 [Rx Last Taken Unknown] Allergy/AdvReac Type Severity Reaction Status Date / Time acetaminophen [From Vicodin] Allergy Unknown Verified 10/16/23 12:43 adhesive tape Allergy Unknown Verified 10/16/23 12:43 amitriptyline Allergy Unknown Verified 10/16/23 12:43 codeine Allergy Unknown Verified 10/16/23 12:43 diclofenac [From Voltaren] Allergy Unknown Verified 10/16/23 12:43 flurbiprofen Allergy Unknown Verified 10/16/23 12:43 hydrochlorothiazide Allergy Unknown Verified 10/16/23 12:43 [From Dyazide] hydrocodone [From Vicodin] Allergy Unknown Verified 10/16/23 12:43 ibuprofen [From Motrin] Allergy Unknown Verified 10/16/23 12:43 lisinopril [From Prinivil] Allergy Unknown Verified 10/16/23 12:43 morphine Allergy Unknown Verified 10/16/23 12:43 Penicillins Allergy Unknown Verified 10/16/23 12:43 ramipril [From Altace] Allergy Unknown Verified 10/16/23 12:43 Sulfa (Sulfonamide Allergy Unknown Verified 10/16/23 12:43 Antibiotics) Tetracyclines Allergy Unknown Verified 10/16/23 12:43 thiethylperazine Allergy Unknown Verified 10/16/23 12:43 [From Torecan] triamterene [From Dyazide] Allergy Unknown Verified 10/16/23 12:43 Surgical History (Updated 10/16/23 @ 12:54 by Jennifer Razo) H/O: hysterectomy History of carpal tunnel surgery Hx of cholecystectomy Social History (Updated 10/16/23 @ 12:54 by Jennifer Razo) household members: spouse housing: house pets and animals: Yes Smoking Status: Never smoker ROS <IRMA Barker - Last Filed: 10/16/23 14:18> ROS ED ROS Narrative Eyes: Negative for visual change. Respiratory: Negative for shortness of breath. GI: Negative for abdominal pain, nausea, vomiting. Neuro: Negative for motor/sensory dysfunction. Skin: Negative for wound. Musc: Negative for joint pain. EXAM <IRMA Barker - Last Filed: 10/16/23 14:18> Physical Exam Narrative Exam Narrative: CONST: Patient sitting in no acute distress. EYES: Normal inspection. NECK: Normal inspection. RESP: No respiratory distress, CTAB. Tender over left anterior lateral ribs under the breast, no deformity or crepitus, no bruising. CVS: Regular rate and rhythm, no murmur, no gallop. ABD: Soft and nontender, no guarding or rebound, nondistended. Back: Normal inspection, no midline tenderness. SKIN: Color normal, no rash, warm, dry, intact. EXTREMITIES: Normal appearance, full ROM, no bony tenderness, 2+ radial DP pulses. NEURO: Oriented x4. PSYCH: Normal affect. Const Vital Signs: 10/16/23 12:40 10/16/23 12:47 10/16/23 12:50 Temperature 97.5 F L Temperature Source Oral Pulse Rate 52 L 53 L Respiratory Rate 16 17 Respiratory Effort Normal Non-Labored Blood Pressure 129/60 H Blood Pressure Mean 83 Pulse Ox 95 94 95 Oxygen Delivery Method Room Air Room Air Room Air 10/16/23 14:26 Temperature 97.5 F L Temperature Source Pulse Rate 56 L Respiratory Rate 12 Respiratory Effort Blood Pressure 136/74 H Blood Pressure Mean 94 Pulse Ox 98 Oxygen Delivery Method <Dr. Tano Calderon DO - Last Filed: 10/16/23 18:46> Physical Exam Const Vital Signs: 10/16/23 12:40 10/16/23 12:47 10/16/23 12:50 Temperature 97.5 F L Temperature Source Oral Pulse Rate 52 L 53 L Respiratory Rate 16 17 Respiratory Effort Normal Non-Labored Blood Pressure 129/60 H Blood Pressure Mean 83 Pulse Ox 95 94 95 Oxygen Delivery Method Room Air Room Air Room Air 10/16/23 14:26 Temperature 97.5 F L Temperature Source Pulse Rate 56 L Respiratory Rate 12 Respiratory Effort Blood Pressure 136/74 H Blood Pressure Mean 94 Pulse Ox 98 Oxygen Delivery Method [facility] <IRMA Barker - Last Filed: 10/16/23 14:18> [facility] Narrative Medical decision making narrative: History gathered from: Patient and spouse Differential: Rib contusion, fracture, pneumothorax Patient had mechanical fall injuring her left rib cage. She is awake alert with stable vital signs. GCS 15. She has a small red kerrie on her cheek she states was from lying her head on the ground. She does not report head injury. No LOC or blood thinners. No indication for CT brain scan. She is tender over the left anterior lateral lower ribs. No deformity or crepitus. No abdominal tenderness. Normal heart and lung sounds. Moving all extremities and neurovascularly intact. CT of the chest shows no acute injuries. She has old healed left rib fractures which she is aware of from a prior injury. She was treated with Tylenol lidocaine patch and I recommended similar treatment for home. I provided an incentive spirometer. She was discharged in stable condition. Radiography Diagnostic Testing: Clinical Impression(s) from Imaging Studies Chest CT 10/16/23 12:53 IMPRESSION: Chronic interstitial changes in both lung post with nonspecific pleural thickening and dependent atelectasis. No pneumothorax or acute pulmonary process. Likely old healed left rib fractures, no acute displaced rib fracture, or soft tissue swelling noted No suspicious adenopathy No demonstrated acute thoracic vertebral body or sternal fracture Electronically Signed: Vito Zurita MD at 13:24 EST Reading Location ID and State: [address] [place] [address] , Service support , <Dr. Tano Calderon, - Last Filed: 10/16/23 18:46> [facility] Narrative Medical decision making narrative: History gathered from: Patient and spouse Differential: Rib contusion, fracture, pneumothorax Patient had mechanical fall injuring her left rib cage. She is awake alert with stable vital signs. GCS 15. She has a small red kerrie on her cheek she states was from lying her head on the ground. She does not report head injury. No LOC or blood thinners. No indication for CT brain scan. She is tender over the left anterior lateral lower ribs. No deformity or crepitus. No abdominal tenderness. Normal heart and lung sounds. Moving all extremities and neurovascularly intact. CT of the chest shows no acute injuries. She has old healed left rib fractures which she is aware of from a prior injury. She was treated with Tylenol lidocaine patch and I recommended similar treatment for home. I provided an incentive spirometer. She was discharged in stable condition. ED attending note: I evaluated the patient in conjunction with the JOHANNA. I agree with his/her statements and above findings. I have personally performed a face to face assessment of the patient and have reviewed the JOHANNA Note. I performed a substantive portion of the visit including all aspects of the following. I personally saw the patient performed chart review, physical exam, reviewed labs, imaging (if obtained), and formulated a treatment and management plan. This note was generated with [employer] dictation software. It may contain incorrect words, spelling, and punctuation that were not noted in review of the chart prior to signing. Radiography Diagnostic Testing: Clinical Impression(s) from Imaging Studies Chest CT 10/16/23 12:53 IMPRESSION: Chronic interstitial changes in both lung post with nonspecific pleural thickening and dependent atelectasis. No pneumothorax or acute pulmonary process. Likely old healed left rib fractures, no acute displaced rib fracture, or soft tissue swelling noted No suspicious adenopathy No demonstrated acute thoracic vertebral body or sternal fracture Electronically Signed: Vito Zurita MD at 13:24 EST Reading Location ID and State: [facility] , Service support , Discharge Plan Triage Chief Complaint: Fall ED Midlevel Provider: Victorina Guajardo ED Provider: Tano Calderon Dx/Rx/DC Orders Clinical Impression: Contusion of rib on left side Instructions: Bruises (Contusions) Prescriptions: New lidocaine [Lidoderm] 5 % adhesive patch,medicated 1 patch topical DAILY Qty: 15 0RF Rx Instructions: leave on most painful area for up to 12 hrs No Action losartan 50 MG tablet 50 mg PO DAILY Qty: 30 0RF bupropion HCl 150 MG tablet sustained-release 12 hr 150 mg PO BID Qty: 60 0RF carvedilol 6.25 MG tablet 6.25 mg PO BIDCM Qty: 60 0RF polyethylene glycol 3350 17 GM powder in packet 34 g PO DAILY Qty: 30 0RF nystatin 1 APPLIC ointment 1 applic topical 0600,2200 Qty: 1 0RF aspirin 81 MG tablet 81 mg PO DAILY@0800 Qty: 30 0RF acetaminophen 500 MG tablet 1,000 mg PO Q8H PRN PRN (Reason: Pain) Qty: 90 0RF levothyroxine 100 MCG tablet 100 mcg PO DAILY@0600 Qty: 30 0RF pravastatin 80 MG tablet 80 mg PO QHS Qty: 30 0RF nitroglycerin 0.4 MG tablet 0.4 mg sublingual Q5M PRN (Reason: Cardiac/Chest Pain) Qty: 30 0RF sertraline 50 MG tablet 1 tab PO DAILY Patient Comments: diazepam 5 MG tablet 5 mg PO Q8 PRN (Reason: Muscle Spasm) Qty: 15 0RF hydrocodone-acetaminophen 1 TABLET tablet 1 tab PO Q6H PRN PRN (Reason: Pain) 3 Days Qty: 10 0RF Primary Care Provider: Randy Saldivar Referrals: Randy Saldivar MD [Primary Care Provider] - Activity Restrictions/Additional Instructions: The CAT scan shows no evidence of new rib fractures or internal injuries. Use ice, lidocaine patches, and take Tylenol as needed. Use the incentive spirometer 10 times daily to prevent pneumonia. Disposition Disposition: Home, Self Care Discharge Date/Time: 10/16/23 14:28
--- NOTE | 2023-10-16 12:53 | CT_ITS ---
INDICATION: Chest and rib pain after fall EXAMINATION: CT CHEST WITHOUT CONTRAST - CT Chest W/O Contrast Injection TECHNIQUE: Helically acquired images were obtained of the chest. A radiation dose optimization technique was used for this scan. IV Contrast dosage and agent: None. COMPARISON: None. FINDINGS: LUNGS, PLEURA AND LARGE AIRWAYS: Lung windows show chronic interstitial changes in both lung post with nonspecific pleural thickening and dependent atelectasis. There is no evidence of pulmonary contusion or pneumothorax. THYROID: No thyroid lesions. HEART AND PERICARDIUM: Heart size is normal. No pericardial effusion. CORONARY ARTERIES: Coronary artery calcification is seen. VESSELS: Thoracic aorta is not dilated. MEDIASTINUM AND THANH: No suspicious mediastinal or hilar adenopathy. Esophagus is unremarkable. No hiatal hernia. UPPER ABDOMEN: No acute pathology. BONES: There are subtle deformities of the left fourth rib, and the left and the left sixth and seventh ribs but there is no soft tissue swelling or pleural thickening I suspect these are old healed fractures. There is no acute displaced rib fracture noted. CT/Chest without Contrast IMPRESSION: Chronic interstitial changes in both lung post with nonspecific pleural thickening and dependent atelectasis. No pneumothorax or acute pulmonary process. Likely old healed left rib fractures, no acute displaced rib fracture, or soft tissue swelling noted No suspicious adenopathy No demonstrated acute thoracic vertebral body or sternal fracture Electronically Signed: Vito Zurita MD at 13:24 EST ,
[2023-10-16] MEDS: Acetaminophen 500 MG Tablet 1000 MG PO (12:59)
[2023-10-16] MEDS: Lidocaine 5% Patch 1 PATCH TOPICAL (12:59)
--- OUTSIDE RECORDS SUMMARY | 2023-10-16 13:39 | XMS RPT_ITS | CCD ---
Author Name Unknown Address [id number] [place] [address] Organization [facility] Care Team Providers Care Public Relations Professional Name Role Phone Komal Allred Attending Unavailable PROVIDER, UNKNOWN Referring Unavailable Sienna Saldivar Primary Care Unavailable Komal Allred Attending Unavailable PROVIDER, UNKNOWN Referring Unavailable Sienna Saldivar Primary Care Unavailable Sienna Saldivar MD Primary Care Provider Toya Robertson Unavailable Sienna Saldivar MD Primary Care Provider Toya Robertson Unavailable Sienna Saldivar MD Primary Care Provider TOYA ROBERTSON Attending Unavailable Sienna Saldivar MD Primary Care Provider Toya Robertson Unavailable Toya Robertson MD Unavailable SIENNA SALDIVAR Primary Care Unavailab ANNEMARIE Covarrubias Attending Unavailable SIENNA SALDIVAR Primary Care Unavailab ANNEMARIE Covarrubias Attending Unavailable [place] Referring Unavailable SIENNA SALDIVAR Primary Care Unavailab [place] Referring Unavailable [place] Attending Unavailable SIENNA SALDIVAR Primary Care Unavailab SIENNA Padilla Primary Care Unavailab le SIENNA SALDIVAR Primary Care Unavailab le FESTUS HAYES Referring Unavailable FESTUS HAYES Attending Unavailable SIENNA SALDIVAR Referring Unavailab SIENNA Padilla Primary Care Unavailab SIENNA Padilla Primary Care Unavailab HEDY Cruz Referring Unavailabl e SIENNA SALDIVAR Attending Unavailab SIENNA Padilla Primary Care Unavailab SIENNA Padilla Attending Unavailab SIENNA Padilla Primary Care Unavailab le SIENNA SALDIVAR Primary Care Unavailab le PODLOGARANNEMARIE Referring Unavailable SIENNA SALDIVAR Referring Unavailab SIENNA Padilla Primary Care Unavailab SIENNA Padilla Attending Unavailab SIENNA Padilla Primary Care Unavailab SIENNA Padilla Referring Unavailab SIENNA Padilla Primary Care Unavailab SIENNA Padilla Primary Care Unavailab SIENNA Padilla Referring Unavailab le SIENNA SALDIVAR Attending Unavailab SIENNA Padilla Primary Care Unavailab le SIENNA SALDIVAR Primary Care Unavailab le PODLOGARANNEMARIE Attending Unavailable SIENNA SALDIVAR Primary Care Unavailab SIENNA Padilla Referring Unavailab le SIENNA SALDIVAR Primary Care Unavailab le PODLOGARANNEMARIE Referring Unavailable FESTUS HAYES Attending Unavailable SIENNA SALDIVAR Primary Care Unavailab SIENNA Padilla Referring Unavailab SIENNA Padilla Primary Care Unavailab SIENNA Padilla Referring Unavailab le SIENNA SALDIVAR Primary Care Unavailab SIENNA Padilla Primary Care Unavailab le DARION, KOMAL Attending Unavailable FESTUS HAYES Referring Unavailable Allergies Allergy Classification Reported Allergen(s) Allergy Type Date of Onset Reaction(s) Facility (20 sources) Acetaminophen / HYDROcodone; Translations: [HYDROCODONE-ACETAMINO PHEN] Drug Allergy [facility] (20 sources) Amitriptyline; Translations: [AMITRIPTYLINE] Drug Allergy [facility] (20 sources) Codeine; Translations: [CODEINE] Drug Allergy [facility] (20 sources) Diclofenac; Translations: [DICLOFENAC SODIUM] Drug Allergy [facility] (20 sources) Flurbiprofen; Translations: [FLURBIPROFEN] Drug Allergy [facility] (20 sources) hydroCHLOROthiazide / Triamterene; Translations: [TRIAMTERENE-HYDROCHLO ROTHIAZID] Drug Allergy 011 GI Upset [facility] (20 sources) Ibuprofen; Translations: [IBUPROFEN] Drug Allergy GI Upset [facility] (20 sources) Iron; Translations: [IRON] Drug Allergy 016 GI Upset [facility] Work Phone: (20 sources) Lisinopril; Translations: [LISINOPRIL] Drug Allergy 006 Cough [facility] (20 sources) Morphine; Translations: [MORPHINE] Drug Allergy 012 Vomiting [facility] (4 sources) Penicillins; Translations: [PENICILLINS] Drug Intolerance Rash [facility] (20 sources) Ramipril; Translations: [RAMIPRIL] Drug Allergy Intolerance [facility] (20 sources) Sulfonamides (Antibiotic); Translations: [SULFA (SULFONAMIDE ANTIBIOTICS)] Drug Intolerance Intolerance [facility] (4 sources) Tetracycline (class of antibiotic); Translations: [TETRACYCLINES] Drug Intolerance Rash [facility] (20 sources) Thiethylperazine; Translations: [THIETHYLPERAZINE MALEATE] Drug Allergy Mental Status Change [facility] (20 sources) tape [Other] Propensity to adverse reactions Intolerance [facility] (20 sources) Penicillins Drug Intolerance Rash [facility] (20 sources) Tetracycline (class of antibiotic) Drug Intolerance Rash [facility] (1 source) OTHER; Translations: [OTHER] Propensity to adverse reactions (disorder) [facility] [place] [facility] Medications Current Medications Medication Drug Class(es) Dates Sig (Normalized) Sig (Original) allopurinol 100 mg oral tablet (12 sources) Xanthine Oxidase Inhibitor Start: 04-14-2023 End: 11-20-2023 take 2 tablets by mouth once daily allopurinol (ZYLOPRIM) 100 mg tablet Indications: Acute gout involving toe of left foot, unspecified cause Take 2 tablets by mouth once daily. For gout. 180 tablet 1 05/24/2023 11/20/2023 Active Completed/Discontinued Medications Medication Drug Class(es) Dates Sig (Normalized) Sig (Original) aluminum hydroxide 40 mg/ml / magnesium hydroxide 40 mg/ml / simethicone 4 mg/ml oral suspension (20 sources) Start: 09-06-2017 take 30 mL by mouth every six hours as needed aluminum-magnesium hydroxide-simethic one (MAALOX,MYLANTA,MA G-AL PLUS) 200-200-20 mg/5 mL suspension Take 30 mL by mouth every 6 hours as needed (GI upset). 500 mL 2 09/06/2017 Active Problems Active Problems Problem Classification Problem Date Documented Date Episodic/Chronic Abdominal hernia (20 sources) Diaphragmatic hernia; Translations: [Diaphragmatic hernia without obstruction or gangrene] 06-30-2005 Episodic Abdominal pain (2 sources) Finding of sensation of abdomen; Translations: [Unspecified abdominal pain] Onset: 3 04-13-2023 Episodic Administrative/social admission (2 sources) Other reduced mobility; Translations: [Other reduced mobility] Onset: 9 Episodic Allergic reactions (6 sources) Allergy status to narcotic agent status; Translations: [Allergy status to other drugs, medicaments and biological substances status] Onset: 9 Episodic Blindness and vision defects (2 sources) Unspecified visual loss; Translations: [Unspecified visual loss] Onset: 9 Cancer of kidney and renal pelvis (19 sources) Renal cell carcinoma; Translations: [Malignant neoplasm of unspecified kidney, except renal pelvis] Onset: 6 Chronic Chronic kidney disease (20 sources) Chronic kidney disease stage 3B ; Translations: [Stage 3b chronic kidney disease] Onset: 7 10-15-2021 Chronic Chronic kidney disease (3 sources) Chronic kidney disease; Translations: [Type 2 DM with CKD stage 3 and hypertension (HCC)] Onset: 8 Coronary atherosclerosis and other heart disease (20 sources) Atherosclerotic heart disease of [place] coronary artery without angina pectoris; Translations: [Coronary arteriosclerosis] Onset: 6 05-27-2015 Chronic Delirium, dementia, and amnestic and other cognitive disorders (2 sources) Senile asthenia; Translations: [Age-related physical debility] Onset: 3 Chronic Diabetes mellitus with complications (20 sources) Type 2 diabetes mellitus; Translations: [Type 2 diabetes mellitus with diabetic chronic kidney disease] Onset: 8 10-18-2017 Chronic Diabetes mellitus without complication (3 sources) Type 2 diabetes mellitus without complications; Translations: [Type 2 diabetes mellitus without complication] Onset: 9 03-29-2023 Chronic Disorders of lipid metabolism (20 sources) Mixed hyperlipidemia; Translations: [Mixed hyperlipidemia] Onset: 8 05-27-2015 Chronic Diverticulosis and diverticulitis (20 sources) Diverticulosis of colon; Translations: [Diverticulosis of large intestine without perforation or abscess without bleeding] 06-30-2005 Chronic Essential hypertension (20 sources) Essential (primary) hypertension; Translations: [Essential hypertension] Onset: 5 Chronic Gastritis and duodenitis (20 sources) Atrophic gastritis; Translations: [Chronic atrophic gastritis without bleeding] 06-30-2005 Chronic Genitourinary congenital anomalies (17 sources) Left kidney absent; 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] Onset: 7 01-20-2017 Chronic Genitourinary symptoms and ill-defined conditions (2 sources) Mixed incontinence; Translations: [Mixed incontinence] Onset: 9 Chronic Genitourinary symptoms and ill-defined conditions (2 sources) Urgency of urination; Translations: [Urgency of urination] Onset: 9 Episodic Gout and other crystal arthropathies (5 sources) Gouty arthritis of toe; Translations: [Gout, unspecified] Onset: 3 03-10-2023 Chronic Headache; including migraine (20 sources) Migraine with aura; Translations: [Migraine with aura, not intractable, without status migrainosus] Onset: 4 11-08-2013 Chronic Hypertension with complications and secondary hypertension (1 source) Hypertensive chronic kidney disease with stage 1 through stage 4 chronic kidney disease, or unspecified chronic kidney disease; Translations: [Type 2 DM with CKD stage 3 and hypertension (HCC)] Onset: 8 Chronic Mood disorders (20 sources) Dysthymic disorder; Translations: [Recurrent major depressive episodes, moderate ] Onset: 9 04-11-2020 Chronic Nausea and vomiting (2 sources) Nausea; Translations: [Nausea] Onset: 3 04-13-2023 Episodic Nutritional deficiencies (2 sources) Vitamin D deficiency, unspecified; Translations: [Vitamin D deficiency, unspecified] Onset: 9 Chronic Osteoarthritis (20 sources) Degenerative joint disease involving multiple joints; Translations: [Polyosteoarthritis, unspecified] Onset: 7 08-10-2021 Chronic Other and unspecified benign neoplasm (20 sources) History of polyp of colon; Translations: [Personal history of colonic polyps] 06-30-2005 Episodic Other and unspecified benign neoplasm (1 source) Tubular adenoma ; Translations: [Benign neoplasm, unspecified site] 05-23-2023 Episodic Other and unspecified benign neoplasm (1 source) Benign adenomatous neoplasm; Translations: [Benign neoplasm, unspecified site] 05-23-2023 Episodic Other connective tissue disease (20 sources) History of total knee arthroplasty; Translations: [Presence of unspecified artificial knee joint] Onset: 2 11-05-2011 Chronic Other connective tissue disease (20 sources) Muscle pain; Translations: [Myalgia and myositis, unspecified] 06-30-2005 Episodic Other diseases of bladder and urethra (20 sources) Overactive bladder; Translations: [Other neuromuscular dysfunction of bladder] Onset: 0 03-26-2010 Chronic Other diseases of kidney and ureters (20 sources) Hyperparathyroidism due to renal insufficiency; Translations: [Secondary hyperparathyroidism of renal origin] Onset: 8 10-18-2017 Chronic Other ear and sense organ disorders (2 sources) Unspecified hearing loss, bilateral; Translations: [Unspecified hearing loss, bilateral] Onset: 9 Chronic Other gastrointestinal disorders (1 source) Diarrhea; Translations: [Diarrhea, unspecified] 04-13-2023 Episodic Other gastrointestinal disorders (1 source) Diarrhea, unspecified; Translations: [Diarrhea, unspecified type] Onset: 3 Episodic Other injuries and conditions due to external causes (1 source) At high risk for fall; Translations: [History of falling] Episodic Other nervous system disorders (2 sources) Other chronic pain; Translations: [Other chronic pain] Onset: 9 Chronic Other nervous system disorders (2 sources) Other abnormalities of gait and mobility; Translations: [Other abnormalities of gait and mobility] Onset: 9 Episodic Other nervous system disorders (2 sources) Unsteady when walking; Translations: [Unsteadiness on feet] Episodic Other non-traumatic joint disorders (2 sources) Pain in left knee; Translations: [Pain in left knee] Onset: 9 Episodic Other non-traumatic joint disorders (2 sources) Pain in right knee; Translations: [Pain in right knee] Onset: 9 Episodic Other nutritional; endocrine; and metabolic disorders (20 sources) Body mass index 40+ - severely obese; Translations: [Morbid (severe) obesity due to excess calories] Onset: 6 04-11-2020 Chronic Other nutritional; endocrine; and metabolic disorders (1 source) Morbid (severe) obesity due to excess calories; Translations: [Morbid obesity with body mass index (BMI) of 45.0 to 49.9 in adult ([facility])] Onset: 0 Chronic Other nutritional; endocrine; and metabolic disorders (1 source) Body mass index (BMI) 45.0-49.9, adult; Translations: [Morbid obesity with body mass index (BMI) of 45.0 to 49.9 in adult ([facility])] Onset: 0 Chronic Other nutritional; endocrine; and metabolic disorders (1 source) Hyperuricemia; Translations: [Hyperuricemia without signs of inflammatory arthritis and tophaceous disease] 04-14-2023 Episodic Other screening for suspected conditions (not mental disorders or infectious disease) (20 sources) Serum creatinine raised; Translations: [Other specified abnormal findings of blood chemistry] Onset: 6 07-22-2016 Episodic Other upper respiratory infections (1 source) Chronic sinusitis, unspecified; Translations: [Bacterial sinusitis] Onset: 3 Chronic Peripheral and visceral atherosclerosis (15 sources) Peripheral vascular disease, unspecified; Translations: [Peripheral vascular disease, unspecified] Onset: 3 Chronic Residual codes; unclassified (20 sources) Obstructive sleep apnea syndrome; Translations: [Obstructive sleep apnea (adult) (pediatric)] Onset: 2 11-02-2021 Chronic Residual codes; unclassified (1 source) Obstructive sleep apnea (adult) (pediatric); Translations: [FELICITY (obstructive sleep apnea)] Onset: 2 Chronic Residual codes; unclassified (2 sources) Insomnia, unspecified; Translations: [Insomnia, unspecified] Onset: 9 Episodic Residual codes; unclassified (2 sources) Other specified personal risk factors, not elsewhere classified; Translations: [Oth personal risk factors, not elsewhere classified] Onset: 9 Episodic Residual codes; unclassified (4 sources) Bilateral lower limb edema; Translations: [Localized edema] Episodic Residual codes; unclassified (1 source) Localized edema; Translations: [Bilateral leg edema] Onset: 3 Episodic Spondylosis; intervertebral disc disorders; other back problems (20 sources) Lumbar spondylosis; Translations: [Spondylosis without myelopathy or radiculopathy, lumbar region] Onset: 2 02-11-2012 Chronic Thyroid disorders (20 sources) Hypothyroidism; Translations: [Hypothyroidism, unspecified] Onset: 6 09-29-2015 Chronic Past or Other Problems Problem Classification Problem Date Documented Da te Episodic/Chronic Bacterial infection; unspecified site (1 source) Other specified bacterial agents as the cause of diseases classified elsewhere; Translations: [Bacterial sinusitis] Onset: 01-03-2023 Episodic Cancer of kidney and renal pelvis (20 sources) History of malignant neoplasm of kidney; Translations: [Personal history of other malignant neoplasm of kidney] Onset: 04-21-2016 04-11-2020 Episodic Chronic obstructive pulmonary disease and bronchiectasis (1 source) Bronchitis, not specified as acute or chronic; Translations: [Bronchitis] Onset: 01-03-2023 Episodic Conditions associated with dizziness or vertigo (20 sources) Dizziness and giddiness; Translations: [Vertigo of central origin] Onset: 06-21-2013 06-21-2013 Episodic Coronary atherosclerosis and other heart disease (20 sources) Drug coated stent in circumflex branch of left coronary artery; Translations: [Presence of coronary angioplasty implant and graft] Onset: 11-24-2012 03-10-2016 Episodic Fluid and electrolyte disorders (2 sources) Hyperkalemia; Translations: [Hyperkalemia] Onset: 12-06-2022 Episodic Fracture of upper limb (20 sources) Fracture at wrist and/or hand level; Translations: [Fracture of unspecified carpal bone, right wrist, initial encounter for closed fracture] Onset: 11-24-2012 11-24-2012 Episodic Other and unspecified benign neoplasm (1 source) Personal history of colonic polyps; Translations: [Personal history of colonic polyps] Onset: 06-30-2005 Episodic Other diseases of bladder and urethra (20 sources) Urethral stenosis; Translations: [Urethral stenosis] Onset: 03-26-2010 03-26-2010 Episodic Other injuries and conditions due to external causes (1 source) History of falling; Translations: [At high risk for falls] Onset: 11-29-2022 Episodic Other nervous system disorders (20 sources) Abnormal gait due to impairment of balance; Translations: [Other abnormalities of gait and mobility] Onset: 05-27-2015 05-27-2015 Episodic Residual codes; unclassified (20 sources) Absent kidney; Translations: [Acquired absence of kidney] Onset: 01-20-2017 Episodic Residual codes; unclassified (2 sources) Acquired absence of kidney; Translations: [Single kidney] Onset: 11-26-2022 Episodic Results Test Name Value Interpretation Reference Range Facil ity Vital Signs Date Time Vital Sign Value Performing Clinician Uvaldo parra 05-31-2023 11:50-0400 Body weight 127.28 kg Annemarie Podlogar [employer] Work Phone: [facility] 05-31-2023 11:50-0400 Diastolic blood pressure 82 mm[Hg] Annemarie Podlogar [employer] Work Phone: [facility] 05-31-2023 11:50-0400 Heart rate 64 /min Annemarie Podlogar [employer] Work Phone: [facility] 05-31-2023 11:50-0400 Respiratory rate 18 /min Annemarie Podlogar [employer] Work Phone: [facility] 05-31-2023 11:50-0400 SaO2% (BldA) [Mass fraction] 96 % Annemarie Podlogar [employer] Work Phone: [facility] 05-31-2023 11:50-0400 Systolic blood pressure 136 mm[Hg] Annemarie Podlogar [employer] Work Phone: [facility] 05-23-2023 10:47-0400 Body temperature 98.4 [degF] Komal Darion PA-C Work Phone: [facility] 05-23-2023 10:47-0400 Body weight 128.1 kg Komal Darion PA-C Work Phone: [facility] 05-23-2023 10:47-0400 Diastolic blood pressure 72 mm[Hg] Komal Darion PA-C Work Phone: [facility] 05-23-2023 10:47-0400 Heart rate 70 /min Komal Darion PA-C Work Phone: [facility] 05-23-2023 10:47-0400 SaO2% (BldA) [Mass fraction] 100 % Komal Darion PA-C Work Phone: [facility] 05-23-2023 10:47-0400 Systolic blood pressure 136 mm[Hg] Komal Aristes PA-C Work Phone: [facility] 05-12-2023 10:33-0400 Diastolic blood pressure 62 mm[Hg] Festus Hayes MD Work Phone: [facility] 05-12-2023 10:33-0400 Heart rate 61 /min Festus Hayes MD Work Phone: [facility] 05-12-2023 10:33-0400 Respiratory rate 16 /min Festus Hayes MD Work Phone: [facility] 05-12-2023 10:33-0400 SaO2% (BldA) [Mass fraction] 99 % Festus Hayes MD Work Phone: [facility] 05-12-2023 10:33-0400 Systolic blood pressure 153 mm[Hg] Festus Hayes MD Work Phone: [facility] 05-12-2023 08:57-0400 Body temperature 97.11 [degF] Festus Hayes MD Work Phone: [facility] 05-12-2023 08:57-0400 Body weight 129.4 kg Festus Hayes MD Work Phone: [facility] 04-19-2023 [id number] Body height 160 cm Festus Hayes MD Work Phone: [facility] 04-19-2023 [id number] Body temperature 97.59 [degF] Festus Hayes MD Work Phone: [facility] 04-19-2023 10:06-0400 Body weight 129.37 kg Festus Hayes MD Work Phone: [facility] 04-19-2023 [id number] Diastolic blood pressure 86 mm[Hg] Festus Hayes MD Work Phone: [facility] 04-19-2023 [id number] Heart rate 75 /min Festus Hayes MD Work Phone: [facility] 04-19-2023 10:06-0400 SaO2% (BldA) [Mass fraction] 97 % Festus Hayes MD Work Phone: [facility] 04-19-2023 [id number] Systolic blood pressure 138 mm[Hg] Festus Hayes MD Work Phone: [facility] 04-13-2023 11:26-0400 Body temperature 98.71 [degF] Annemarie Podlogar [employer] Work Phone: [facility] 04-13-2023 [id number] Body weight 127.1 kg Annemarie Podlogar HAND [employer] Work Phone: [facility] 04-13-2023 11:26-0400 Diastolic blood pressure 78 mm[Hg] Annemarie Podlogar [employer] Work Phone: [facility] 04-13-2023 11:26-0400 Heart rate 61 /min Annemarie Podlogar HAND [employer] Work Phone: [facility] 04-13-2023 11:26-0400 Respiratory rate 18 /min Annemarie Podlogar [employer] Work Phone: [facility] 04-13-2023 11:26-0400 SaO2% (BldA) [Mass fraction] 92 % Annemarie Podlogpedro luis HAND STITCHER[employer] Work Phone: [facility] 04-13-2023 11:26-0400 Systolic blood pressure 142 mm[Hg] Annemarie Rojaslogpedro luis HAND [employer] Work Phone: [facility] 11-29-2022 11:05-0400 Body weight 127.91 kg Sienna Saldivar MD Work Phone: [facility] 11-29-2022 11:05-0400 Diastolic blood pressure 80 mm[Hg] Sienna Saldivar MD Work Phone: [facility] 11-29-2022 11:05-0400 Heart rate 55 /min Sienna Saldivar MD Work Phone: [facility] 11-29-2022 11:05-0400 Respiratory rate 18 /min Sienna Saldivar MD Work Phone: [facility] 11-29-2022 11:05-0400 SaO2% (BldA) [Mass fraction] 96 % Sienna Saldivar MD Work Phone: [facility] 11-29-2022 11:05-0400 Systolic blood pressure 126 mm[Hg] Sienna Saldivar MD Work Phone: [facility] 11-26-2022 14:02-0400 Body weight 127.46 kg Ny Carlton PA-C Work Phone: [facility] 11-26-2022 14:02-0400 Diastolic blood pressure 80 mm[Hg] Ny Carlton PA-C Work Phone: [facility] 11-26-2022 14:02-0400 Heart rate 60 /min Ny Carlton PA-C Work Phone: [facility] 11-26-2022 14:02-0400 SaO2% (BldA) [Mass fraction] 98 % Ny Carlton PA-C Work Phone: [facility] 11-26-2022 14:02-0400 Systolic blood pressure 140 mm[Hg] Ny Carlton PA-C Work Phone: [facility] 06-25-2022 11:57-0500 Body weight 127.91 kg Sienna Saldivar MD Work Phone: [facility] 06-25-2022 11:57-0500 Diastolic blood pressure 62 mm[Hg] Sienna Saldivar MD Work Phone: [facility] 06-25-2022 11:57-0500 Heart rate 72 /min Sienna Saldivar MD Work Phone: [facility] 06-25-2022 11:57-0500 Respiratory rate 20 /min Sienna Saldivar MD Work Phone: [facility] 06-25-2022 11:57-0500 SaO2% (BldA) [Mass fraction] 92 % Sienna Saldivar MD Work Phone: [facility] 06-25-2022 11:57-0500 Systolic blood pressure 122 mm[Hg] Sienna Saldivar MD Work Phone: [facility] 04-30-2022 11:43-0400 Diastolic blood pressure 74 mm[Hg] Annemarie Podlogar [employer] Work Phone: [facility] 04-30-2022 11:43-0400 Systolic blood pressure 129 mm[Hg] Annemarie Podlogar [employer] Work Phone: [facility] 04-30-2022 11:39-0400 Body weight 128.19 kg Annemarie Podlogar HAND [employer] Work Phone: [facility] 04-30-2022 11:39-0400 Heart rate 71 /min Annemarie Podlogar HAND [employer] Work Phone: [facility] 04-30-2022 11:39-0400 Respiratory rate 18 /min Annemarie Podlogar [employer] Work Phone: [facility] 04-30-2022 11:39-0400 SaO2% (BldA) [Mass fraction] 95 % Annemarie Podlogar [employer] Work Phone: [facility] 12-16-2021 13:33-0400 Diastolic blood pressure 73 mm[Hg] Mi Nurse Work Phone: [facility] 12-16-2021 13:33-0400 Heart rate 64 /min Mi Nurse Work Phone: [facility] 12-16-2021 13:33-0400 Systolic blood pressure 128 mm[Hg] Mi Nurse Work Phone: [facility] 11-30-2021 11:33-0400 Diastolic blood pressure 81 mm[Hg] Mi Nurse Work Phone: [facility] 11-30-2021 11:33-0400 Heart rate 59 /min Mi Nurse Work Phone: [facility] 11-30-2021 11:33-0400 Systolic blood pressure 148 mm[Hg] Mi Nurse Work Phone: [facility] 11-16-2021 11:16-0400 Diastolic blood pressure 79 mm[Hg] Mi Nurse Work Phone: [facility] 11-16-2021 11:16-0400 Heart rate 63 /min Mi Nurse Work Phone: [facility] 11-16-2021 11:16-0400 Systolic blood pressure 144 mm[Hg] Mi Nurse Work Phone: [facility] Encounters Encounter Date Encounter Type Care Provider Facility Start: 06-15-2023 End: 06-16-2023 ambulatory SIENNA SALDIVAR Facility:[facility] Start: 05-31-2023 End: 06-01-2023 ambulatory SIENNA SALDIVAR Facility:[facility] Start: 05-31-2023 End: 05-31-2023 Patient encounter procedure Annemarie Small HAND STITCHER.[employer] Work Phone: [facility] Procedures Date Procedure Procedure Detail Performing Clinician Start: 05-12-2023 Level iv surg pathology gross&microscopic exam Festus Hayes MD Work Phone: Start: 05-12-2023 Colonoscopy flx dx w/collj spec when pfrmd Festus Hayes MD Work Phone: Start: 05-12-2023 Colonoscopy Komal Dunn PA-C Work Phone: Start: 11-25-2022 Radiologic exam chest 2 views Kate Baptiste APRN.[employer] Work Phone: Start: 11-25-2022 Us retroperitoneal real time w/image complete Ny Carlton PA-C Work Phone: Start: 11-24-2012 History of placement of stent for coronary artery disease S/P coronary artery stent placement Mi Nurse Work Phone: Start: 01-28-2011 Colonoscopy Mi Nurse Work Phone: Start: 01-02-2009 H/O: artificial joint Knee joint replacement by other means Mi Nurse Work Phone: History of placement of stent for coronary artery disease S/P coronary artery stent placement Sienna Saldivar MD Work Phone: Plan of Treatment Date Care Activity Detail Author Start: 05-12-2025 Colonoscopy Colonoscopy [facility] Start: 05-12-2025 Colorectal Cancer Screening Colorectal Cancer Screening [facility] Start: 06-15-2024 Hepatitis B surface antibody level LDL Cholesterol [facility] Start: 06-15-2024 Serum Creatinine Serum Creatinine [facility] Start: 05-31-2024 3 comp foot exam completed Diabetic Foot Exam [facility] Start: 05-31-2024 Annual PCP Team Baler huy Disease Visit Annual PCP Team Chronic Disease Visit [facility] Start: 04-26-2024 Annual PCP Team Baler huy Disease Visit Annual PCP Team Chronic Disease Visit [facility] Start: 04-26-2024 BP Controlled (<130/80) BP Controlle d (<130/80) [facility] Start: 04-13-2024 ANNUAL PCP TEAM BOILER TUBE REAMER HUY DISEASE VISIT ANNUAL PCP TEAM CHRONIC DISEASE VISIT [facility] Start: 03-09-2024 ANNUAL PCP TEAM BOILER TUBE REAMER HUY DISEASE VISIT ANNUAL PCP TEAM CHRONIC DISEASE VISIT [facility] Start: 03-09-2024 HEMOGLOBIN/HEMATOCRIT HEMOGLOBIN/HEM ATOCRIT [facility] Start: 01-18-2024 SERUM CREATININE SERUM CREATININE [facility] Start: 12-14-2023 Hemoglobin A1c/Hemoglobin.total in Blood HbA1C [facility] Start: 11-30-2023 ANNUAL PCP TEAM BOILER TUBE REAMER HUY DISEASE VISIT ANNUAL PCP TEAM CHRONIC DISEASE VISIT [facility] Start: 11-30-2023 HEMOGLOBIN/HEMATOCRIT HEMOGLOBIN/HEM ATOCRIT [facility] Start: 11-30-2023 SERUM CREATININE SERUM CREATININE [facility] Start: 11-26-2023 SERUM CREATININE SERUM CREATININE [facility] Start: 11-18-2023 End: 12-26-2023 Radiologic exam chest 2 views XR CHEST 2V FRONTAL/LAT Radiology Routine Renal cell carcinoma, unspecified laterality (HCC) Solitary kidney, acquired Expected: 11/18/2023 (Approximate), Expires: 12/26/2023 [facility] Work Phone: Immunizations Immunization Date Immunization Notes Care Provider Orlando palmer 05-24-2022 COVID-19 booster vaccine, age 12+ yr, bivalent (PFIZER-BIONTPlacely) Sienna Saldivar MD Work Phone: [facility] 05-24-2022 influenza, high-dose , quadrivalent vaccine (FLUZONE HIGH DOSE QUADRIVALENT) Sienna Saldivar MD Work Phone: [facility] 05-24-2022 influenza virus vaccine, unspecified formulation Annemarie Small APRN.[employer] Work Phone: [facility] 05-07-2021 influenza, high-dose , quadrivalent vaccine (FLUZONE HIGH DOSE QUADRIVALENT) Mi Nurse Work Phone: [facility] 10-22-2020 COVID-19 vaccine, fu ll dose (MODERNA) Mi Nurse Work Phone: [facility] 09-25-2020 COVID-19 vaccine, fu ll dose (MODERNA) Mi Nurse Work Phone: [facility] 05-23-2020 influenza, high dose seasonal, preservative-free Mi Nurse Work Phone: [facility] 08-03-2019 zoster vaccine recombinant Mi Nurse Work Phone: [facility] 05-11-2019 zoster vaccine recombinant Mi Nurse Work Phone: [facility] 05-08-2019 influenza, high dose seasonal, preservative-free Mi Nurse Work Phone: [facility] 06-15-2018 influenza, high dose seasonal, preservative-free Mi Nurse Work Phone: [facility] 06-21-2017 influenza, high dose seasonal, preservative-free Mi Nurse Work Phone: [facility] 04-06-2016 influenza, high dose seasonal, preservative-free Mi Nurse Work Phone: [facility] 03-23-2016 pneumococcal polysaccharide vaccine, 23 valent Mi Nurse Work Phone: [facility] 05-27-2015 influenza, high dose seasonal, preservative-free Mi Nurse Work Phone: [facility] 11-01-2014 pneumococcal conjuga te vaccine, 13 valent Mi Nurse Work Phone: [facility] 06-13-2014 influenza, seasonal, injectable Mi Nurse Work Phone: [facility] Work Phone: 07-11-2013 tetanus and diphther ia toxoids, adsorbed, preservative free, for adult use (2 Lf of tetanus toxoid and 2 Lf of diphtheria toxoid) Mi Nurse Work Phone: [facility] 05-29-2013 influenza virus vaccine, unspecified formulation Mi Nurse Work Phone: [facility] 06-08-2012 influenza virus vaccine, unspecified formulation Mi Nurse Work Phone: [facility] 06-08-2012 varicella virus vaccine Mi N urse Work Phone: [facility] 06-08-2012 zoster vaccine, live Mi Nurs e Work Phone: [facility] 02-07-2012 pneumococcal polysaccharide vaccine, 23 valent Mi Nurse Work Phone: [facility] 05-18-2011 influenza virus vaccine, unspecified formulation Mi Nurse Work Phone: [facility] 05-18-2010 influenza virus vaccine, unspecified formulation Mi Nurse Work Phone: [facility] 05-19-2009 influenza virus vaccine, unspecified formulation Fl Nurse Work Phone: [facility] Work Phone: 05-27-2006 pneumococcal polysaccharide vaccine, 23 valent Fl Nurse Work Phone: [facility] Work Phone: 06-11-2005 influenza virus vaccine, unspecified formulation Fl Nurse Work Phone: [facility] Work Phone: 04-18-2003 diphtheria and tetan us toxoids, adsorbed for pediatric use Fl Nurse Work Phone: [facility] Work Phone: 05-16-2000 pneumococcal polysaccharide vaccine, 23 valent Fl Nurse Work Phone: [facility] Work Phone: Payers Date Payer Category Payer Private Health Insurance 2015 Private Health Insurance HUMANA HUMANA MEDICARE SUPPLEMENT [id number] 2015-Present [phone] [address] [address] [place] [address] Indemnity [id number] 2015 Private Health Insurance [id number] 2011 Medicare MEDICARE MEDICAR E A AND B [id number] 2011-Present [phone] [place] [address] Medicare [id number] 2011 Medicare MEDICARE MEDICAR E A AND B [id number] 2011-Present [phone] [place] [address] Medicare [id number] 2011 Medicare [id number] 1945 Unknown [id number] 1945 Unknown [id number] Social History Date Type Detail Facility Start: 07-22-2016 End: 04-30-2022 Tobacco smoking status NHIS Ex-smoker [facility] Work Phone: End: 07-01-1975 History of tobacco use Current smoker [facility] End: 07-01-1975 History of tobacco use Cigarette Smoker [facility] Start: 11-16-2021 End: 06-25-2022 Alcohol intake Current non-drinker of alcohol (finding) [facility] Start: 1945 Sex Assigned At Female [facility] Start: 10-25-2021 End: 06-25-2022 Exposure to SARS-CoV-2 (event) Not sure [facility] Start: 07-22-2016 End: 04-13-2023 Cigarettes smoked current (pack per day) - Reported 1 [facility] Start: 07-22-2016 End: 04-30-2022 Tobacco use and exposure Smokeless tobacco non-user [facility] Start: 03-09-2023 End: 04-13-2023 Tobacco use panel [facility] Adult Depression Screening Assessment 0 [facility] Start: 05-11-2020 Gender identity Identifies as female gender (finding) [facility] Start: 05-11-2020 Sexual orientation Heterosexual (fin ding) [facility] Start: 05-23-2023 End: 06-10-2023 Alcohol intake Current drinker of alcohol (finding) [facility] Start: 05-12-2023 Alcohol [facility] Medical Equipment Procedure Code Equipment Code Equipment Origin al Text Equipment Identifier Dates Test blood sugar (s) 1 times daily. Dx: Type 2 DM - Controlled E11.9 Insulin: No Start: 05-08-2019 End: 05-12-2023 Clinical Notes 10-18-2017 to 05-31-2023 Annemarie Small APRN.MARCUS - 05/31/2023 11:30 AM EDTTelephone Encounter - Laura Mcelroy - 05/23/2023 5:31 PM EDTPatient Komal Ayala PA-C - 05/23/2023 10:44 AM EDTPatient Instructions Note Date & Type Note Facility 05-31-2023 Note HNO ID: [id number] Author: Annemarie Small APRN.[employer] Service: ? Author Type: Nurse Practitioner Type: Progress Notes Filed: 05/31/2023 1:41 PM Note Text: 05/31/2023 Patient presents with: F/U 6 Month SUBJECTIVE: This is a 77 year old that is here today for Above Complaints. HTN: Patient is compliant with meds Yes Monitors bp at home: Yes. 130-140/80 Denies side effects: Yes. Chest pain: No. Dyspnea: No. Edema: occasionally take lasix once in awhile Palpitations: No. Syncope: No. Headache: No. Dizziness: No. HYPOTHYROIDISM: taking synthroid as prescribed without side effects FELICITY: uses CPAP nightly. Feels well rested when she gets up DM: diet controlled. Checking blood sugars daily fasting with readings in the 90-100. Denies visual changes, polyuria or polydipsia HYPERLIPIDEMIA: Patient is taking medications: Yes. Patient is watching diet: Yes. Patient denies myalgias: Yes. Patient denies gi upset: Yes CAD: No new symptoms on current regimen. Admits to some SOB with exertion which was worked up last year and cardiology felt this was due to weight, age, and deconditioning. Followed up with her rn vascular in June, with recommendation to follow-up as needed. Denies dyspnea, chest pain, palpitations or leg edema PAST MEDICAL HISTORY Diagnosis Date Atrophic gastritis without mention of hemorrhage GASTRITIS CHRONIC ATROPHIC( W/O Hemorrhage) Benign neoplasm of colon CAD (coronary artery disease) s/p stent, Seeing Dr. Robertson Cataracts, bilateral CKD (chronic kidney disease) stage 3, GFR 30-59 ml/min ([facility]) left nephrectomy, [facility] Closed fracture of two ribs DDD (degenerative disc disease), lumbar Depression Diabetes (HCC) diet controlled Diaphragmatic hernia without mention of obstruction or gangrene HIATAL HERNIA Diverticulosis of colon (without mention of hemorrhage) Diverticulosis Elevated uric acid in blood History of transfusion Hypothyroidism Irritable bowel syndrome Mitral valve disorders Morbid obesity (HCC) Myalgia and myositis, unspecified FIBROMYALGIA FELICITY (obstructive sleep apnea) 11/02/2021 Osteopenia Personal history of colonic polyps Renal cell carcinoma (HCC) 04/21/[address] Hawkins Unspecified essential hypertension Essential hypertension Unspecified gastritis and gastroduodenitis without mention of hemorrhage Urinary incontinence ALLERGIES Sulfa (Sulfonamide Antibiotics), Tape [Other], Torecan [Thiethylperazine Maleate], Amitriptyline, Codeine, Motrin [Ibuprofen], Penicillins, Tcn [Tetracyclines], Voltaren [Diclofenac Sodium], Altace [Ramipril], Dyazide [Triamterene-Hydrochlorothiazid] , Flurbiprofen, Iron, Morphine, Prinivil [Lisinopril], and Vicodin [Hydrocodone-Acetaminophen] MEDICATIONS Current Outpatient Medications Medication Sig allopurinol (ZYLOPRIM) 100 mg tablet Take 2 tablets by mouth once daily. For gout. colchicine 0.6 mg tablet Take 2 tabs by mouth, followed by 1 tab one hour later for gout flare. May repeat in 1 week. dicyclomine (BENTYL) 10 mg capsule Take 1 capsule by mouth before meals and at bedtime. ondansetron orally disintegrating (ZOFRAN ODT) 4 mg disintegrating tablet Take 1 tablet by mouth every 8 hours as needed for nausea/vomiting. loperamide (IMODIUM) 2 mg cap(s) Take 1 capsule by mouth four times daily as needed. pravastatin (PRAVACHOL) 80 mg tablet Take 1 tablet by mouth once daily. buPROPion SR (ZYBAN SR; WELLBUTRIN SR) 150 mg 12 hr tablet Take 1 tablet by mouth twice daily. levothyroxine (SYNTHROID) 112 mcg tablet Take 1 tablet by mouth once daily. oxybutynin ER (DITROPAN XL) 10 mg 24 hr tablet Take 1 tablet by mouth once daily. DULoxetine (CYMBALTA) 30 mg capsule Take 3 capsules by mouth once daily. losartan (COZAAR) 50 mg tablet Take 1 tablet by mouth once daily. losartan (COZAAR) 50 mg tablet Take 1 tablet by mouth once daily. furosemide (LASIX) 20 mg tablet Take 1 tablet by mouth twice daily as needed (LE edema). CPAP Initiate Auto PAP @ 5-20 cm of water with humidification. Mask (per patient preference) optional chin strap (if indicated) , filters, tubing, humidifier and lifetime supplies. blood sugar diagnostic (BLOOD GLUCOSE TEST) test strip Test blood sugar(s) 1 times daily. Dx: Type 2 DM - Controlled E11.9 Insulin: No Lancets lancets Test blood sugar(s) 1 times daily. Dx: Type 2 DM - Controlled E11.9 Insulin: No aluminum-magnesium hydroxide-simethicone (MAALOX,MYLANTA,MAG-AL PLUS) 200-200-20 mg/5 mL suspension Take 30 mL by mouth every 6 hours as needed (GI upset). nystatin (MYCOSTATIN) powder Apply 1 application to affected area twice daily. No current facility-administered medications for this visit. Medications and allergies reviewed by this provider. SOCIAL HISTORY Social History Tobacco Use Smoking status: Former Packs/day: 1.00 Years: 1.00 Additional pack years: 0.00 Total pack years: 1.00 Types (more content not included)... [facility] 05-31-2023 History of Presen t illness Narrative 05/31/2023 Patient presents with: F/U 6 Month SUBJECTIVE: This is a 77 year old that is here today for Above Complaints. HTN: Patient is compliant with meds Yes Monitors bp at home: Yes. 130-140/80 Denies side effects: Yes. Chest pain: No. Dyspnea: No. Edema: occasionally take lasix once in awhile Palpitations: No. Syncope: No. Headache: No. Dizziness: No. HYPOTHYROIDISM: taking synthroid as prescribed without side effects FELICITY: uses CPAP nightly. Feels well rested when she gets up DM: diet controlled. Checking blood sugars daily fasting with readings in the 90-100. Denies visual changes, polyuria or polydipsia HYPERLIPIDEMIA: Patient is taking medications: Yes. Patient is watching diet: Yes. Patient denies myalgias: Yes. Patient denies gi upset: Yes CAD: No new symptoms on current regimen. Admits to some SOB with exertion which was worked up last year and cardiology felt this was due to weight, age, and deconditioning. Followed up with her rn vascular in June, with recommendation to follow-up as needed. Denies dyspnea, chest pain, palpitations or leg edema PAST MEDICAL HISTORY Diagnosis Date Atrophic gastritis without mention of hemorrhage GASTRITIS CHRONIC ATROPHIC( W/O Hemorrhage) Benign neoplasm of colon CAD (coronary artery disease) s/p stent, Seeing Dr. Shaub Cataracts, bilateral CKD (chronic kidney disease) stage 3, GFR 30-59 ml/min ([facility]) left nephrectomy, [facility] Closed fracture of two ribs DDD (degenerative disc disease), lumbar Depression Diabetes ([facility]) diet controlled Diaphragmatic hernia without mention of obstruction or gangrene HIATAL HERNIA Diverticulosis of colon (without mention of hemorrhage) Diverticulosis Elevated uric acid in blood History of transfusion Hypothyroidism Irritable bowel syndrome Mitral valve disorders Morbid obesity ([facility]) Myalgia and myositis, unspecified FIBROMYALGIA FELICITY (obstructive sleep apnea) 11/02/2021 Osteopenia Personal history of colonic polyps Renal cell carcinoma ([facility]) 04/21/[address] Hawkins Unspecified essential hypertension Essential hypertension Unspecified gastritis and gastroduodenitis without mention of hemorrhage Urinary incontinence ALLERGIES Sulfa (Sulfonamide Antibiotics), Tape [Other], Torecan [Thiethylperazine Maleate], Amitriptyline, Codeine, Motrin [Ibuprofen], Penicillins, Tcn [Tetracyclines], Voltaren [Diclofenac Sodium], Altace [Ramipril], Dyazide [Triamterene-Hydrochlorothiazid] , Flurbiprofen, Iron, Morphine, Prinivil [Lisinopril], and Vicodin [Hydrocodone-Acetaminophen] MEDICATIONS Current Outpatient Medications Medication Sig allopurinol (ZYLOPRIM) 100 mg tablet Take 2 tablets by mouth once daily. For gout. colchicine 0.6 mg tablet Take 2 tabs by mouth, followed by 1 tab one hour later for gout flare. May repeat in 1 week. dicyclomine (BENTYL) 10 mg capsule Take 1 capsule by mouth before meals and at bedtime. ondansetron orally disintegrating (ZOFRAN ODT) 4 mg disintegrating tablet Take 1 tablet by mouth every 8 hours as needed for nausea/vomiting. loperamide (IMODIUM) 2 mg cap(s) Take 1 capsule by mouth four times daily as needed. pravastatin (PRAVACHOL) 80 mg tablet Take 1 tablet by mouth once daily. buPROPion SR (ZYBAN SR; WELLBUTRIN SR) 150 mg 12 hr tablet Take 1 tablet by mouth twice daily. levothyroxine (SYNTHROID) 112 mcg tablet Take 1 tablet by mouth once daily. oxybutynin ER (DITROPAN XL) 10 mg 24 hr tablet Take 1 tablet by mouth once daily. DULoxetine (CYMBALTA) 30 mg capsule Take 3 capsules by mouth once daily. losartan (COZAAR) 50 mg tablet Take 1 tablet by mouth once daily. losartan (COZAAR) 50 mg tablet Take 1 tablet by mouth once daily. furosemide (LASIX) 20 mg tablet Take 1 tablet by mouth twice daily as needed (LE edema). CPAP Initiate Auto PAP @ 5-20 cm of water with humidification. Mask (per patient preference) optional chin strap (if indicated) , filters, tubing, humidifier and lifetime supplies. blood sugar diagnostic (BLOOD GLUCOSE TEST) test strip Test blood sugar(s) 1 times daily. Dx: Type 2 DM - Controlled E11.9 Insulin: No Lancets lancets Test blood sugar(s) 1 times daily. Dx: Type 2 DM - Controlled E11.9 Insulin: No aluminum-magnesium hydroxide-simethicone (MAALOX,MYLANTA,MAG-AL PLUS) 200-200-20 mg/5 mL suspension Take 30 mL by mouth every 6 hours as needed (GI upset). nystatin (MYCOSTATIN) powder Apply 1 application to affected area twice daily. No current facility-administered medications for this visit. Medications and allergies reviewed by this provider. SOCIAL HISTORY Social History Tobacco Use Smoking status: Former Packs/day: 1.00 Years: 1.00 Additional pack years: 0.00 Total pack years: 1.00 Types: Cigarettes Quit date: 07/01/1975 Years since quittin.9 Smokeless tobacco: Never Vaping Use Vaping Use: Never used Substance Use Topics Alcohol use: Yes Comment: occasional Drug use: No REVIEW OF SYSTEMS All other reviewed and negative other than HPI. OBJECTIVE: BP 136/82 Pulse 64 Resp 18 Wt 127.3 kg (280 lb 9.6 oz) SpO2 96% BMI 49.71 kg/m . Vital signs reviewed by this provider. APPEARANCE Well appearing, alert, in no acute distress, well-hydrated, well nourished. EYES PERRLA, conjunctiva and sclera normal. HEART RRR with normal S1 and S2, no murmurs, no gallops, no JVD appreciated LUNG clear to auscultation. No wheezes, rhonchi or rales EXTREMITIES Extremities normal, No deformities, No skin discoloration, No edema, and Normal pulses bilaterally. SKIN Skin color, texture, turgor normal, no suspicious rashes or lesions to exposed skin DM foot exam: shoes and socks removed, No deformities, ulcers, calluses, normal distal pulses, and not sensitive to monofilament right foot and left great toe\ Component Latest Ref Rng & Units 01/17/2023 03/09/2023 WBC 3.70 - 11.00 k/uL 7.02 RBC 3.90 - 5.20 m/uL 4.57 Hemoglobin 11.5 - 15.5 g/dL 13.7 Hematocrit 36.0 - 46.0 % 42.7 MCV 80.0 - 100.0 fL 93.4 MCH 26.0 - 34.0 pg 30.0 MCHC 30.5 - 36.0 g/dL 32.1 RDW-CV 11.5 - 15.0 % 13.6 Platelet Count 150 - 400 k/uL 182 MPV 9.0 - 12.7 fL 12.2 Neut% % 62.9 Abs Neut (ANC) 1.45 - 7.50 k/uL 4.41 Lymph% % 27.9 Abs Lymph 1.00 - 4.00 k/uL 1.96 Island% % 7.1 Abs Island <0.87 k/uL 0.50 Eosin% % 1.3 Abs Eosin <0.46 k/uL 0.09 Baso% % 0.4 Abs Baso <0.11 k/uL 0.03 Immature Gran % % 0.4 IMMATURE GRANS (ABS) <0.10 k/uL 0.03 NRBC /100 WBC 0.0 Absolute nRBC <0.01 k/uL <0.01 DTYPE Auto Glucose 74 - 99 mg/dL 126 (H) BUN 7 - 21 mg/dL 19 Creatinine 0.58 - 0.96 mg/dL 1.29 (H) Sodium 136 - 144 mmol/L 140 Potassium 3.7 - 5.1 mmol/L 3.7 Chloride 97 - 105 mmol/L 103 CO2 22 - 30 mmol/L 28 Anion Gap 9 - 18 mmol/L 9 Calcium 8.5 - 10.2 mg/dL 9.4 eGFR >=60 mL/min/1.73m 43 (L) Component Latest Ref Rng & Units 04/29/2022 Cholesterol, Total <200 mg/dL 187 Triglyceride <150 mg/dL 169 (H) HDL Cholesterol >39 mg/dL 44 Non HDL Cholesterol <130 mg/dL 143 (H) Fasting Time hrs 12 VLDL Cholesterol <30 mg/dL 34 (H) TC:HDL Ratio <5.10 4.25 LDL Cholesterol <100 mg/dL 109 (H) LDL:HDL Ratio <2.54 2.48 BP Controlled (<130/80) Never done Hepatitis B Vaccine(1 of 3 - Risk 3-dose series) Never done RSV Vaccine(1 - 1-dose 60+ series) Never done Advance Directive Discussion Never done Influenza Vaccine(1) due on 04/15/2023 Covid-19 Vaccine(2022-24 season) due on 04/15/2023 Urine Albumin:Creatinine Ratio due on 04/29/2023 LDL Cholesterol due on 04/29/2023 HbA1C due on 05/31/2023 DTaP,Tdap,Td Vaccine(3 - Tdap) due on 07/11/2023 Serum Creatinine due on 01/18/2024 Hemoglobin/Hematocrit due on 03/09/2024 Diabetic Foot Exam due on 05/31/2024 Annual PCP Team Chronic Disease Visit due on 05/31/2024 Colorectal Cancer Screening due on 05/12/2025 Bone Density Screening Completed Hepatitis C Screening Completed Shingrix Vaccine Completed Pneumococcal Vaccine: 65+ Completed HPV Vaccine Aged Out Mammogram Screening Discontinued Dilated Retinal Exam Discontinued ASSESSMENT/PLAN: 1. Essential hypertension - ICD9: 401.9, ICD10: I10 (primary diagnosis) - Controlled - Continue current medications - Recommend home blood pressure monitoring, to bring results to next visit - Encouraged sodium restriction, DASH or Mediterranean diet - Recommend regular aerobic exercise - Discussed need for and benefit of weight loss. BMI 49.71 kg/(m^2) - Follow up in 6 months for hypertension visit 2. Type 2 DM with CKD stage 3 and hypertension (HCC) - ICD9: 250.40, 403.90, 585.3, ICD10: E11.22, I12.9, N18.30 - Control to be determined - Recommend home blood pressure monitoring, to bring results to next visit - Encouraged sodium restriction, DASH or Mediterranean diet - Recommend regular aerobic exercise - Discussed need for and benefit of weight loss. BMI 49.71 kg/(m^2) - Follow up in 6 months for hypertension visit - HGB A1C - ALBUMIN/CREAT RATIO RND UR - COMP METABOLIC PANEL 3. Mixed hyperlipidemia - ICD9: 272.2, ICD10: E78.2 - Control undetermined, due for labs - Continue current medications - Counseled on healthy diet and regular exercise - Discussed need for and benefit of weight loss. BMI 49.71 kg/(m^2) - Follow up in 6 months, sooner should any other issues arise. - LIPID PANEL BASIC 4. Bilateral leg edema - ICD9: 782.3, ICD10: R60.0 - FUROSEMIDE 20 MG TABLET 5. Stage 3b chronic kidney disease (HCC) - ICD9: 585.3, ICD10: N18.32 - eGFR: 43 Stable - Counseled on avoiding NSAIDs, adequate hydration - Counseled on low sodium diet - ACEi/ARB prescribed: Yes 6. FELICITY (obstructive sleep apnea) - ICD9: 327.23, ICD10: G47.33 - continue nightly use 7. Acquired hypothyroidism - ICD9: 244.9, ICD10: E03.9 - Instructed patient on importance of taking on an empty stomach either first thing in the morning or at bedtime. - continue current dose of Synthroid 0.112 mg - Follow up in 6 months 8. Coronary artery disease involving [place] heart without angina pectoris, unspecified vessel or lesion type - ICD9: 414.01, ICD10: I25.10 - stable - continue current medications Annemarie Small APRN.CNP Prescription instructions reviewed with patient as applicable. Patient advised if symptoms do not improve or if symptoms worsen sooner, to contact their primary care physician. Potential red flag symptoms discussed with the patient. Reviewed appropriate action plan to take if red flag symptoms occur. Patient agreeable to treatment plan. I spent a total of 25 minutes on the date of the service which included preparing to see the patient, [id number] patient care, completing clinical documentation, obtaining and/or reviewing separately obtained history, performing a medically appropriate examination, counseling and educating the patient/family/caregiver, and ordering medications, tests, or procedures. documented in this encounter [facility] 05-23-2023 Miscellaneous Notes Patient has been identified by name and date of : Yes Last office visit in this department: 04/26/2023 RX INSTRUCTIONS: Patient aware RX will be sent to pharmacy. No need to notify patient. Patient phones requesting refills as follows: Requested Prescriptions Pending Prescriptions Disp Refills allopurinol (ZYLOPRIM) 100 mg tablet 60 tablet 2 Sig: Take 2 tablets by mouth once daily. For gout. Please review and advise. Laura Mcelroy documented in this encounter [facility] 05-23-2023 Note HNO ID: [id number] Author: Komal Dunn PA-C Service: ? Author Type: Physician Surface Water Technician Type: Progress Notes Filed: 05/23/2023 11:45 AM Note Text: FOLLOW UP VISIT - ENDOSCOPY NAME: Mica Lowe [facility] NO.: [id number] DATE OF SERVICE: 05/23/2023 : 1945 REFERRING PHYSICIAN: Sienna Saldivar MD Mica is a patient I am following with Dr. Hayes for change in bowel habits and abdominal cramping. Dr. Hayes performed lower endoscopy on 05/12/23. Findings per operative report showed: Anal fissure found on perianal exam. - Eight 10 to 11 mm polyps in the sigmoid colon, in the transverse colon and in the ascending colon, removed with a hot snare. Resected and retrieved. - The entire examined colon is normal. Biopsied. - Diverticulosis in the sigmoid colon. - Non-bleeding internal hemorrhoids. - The examination was otherwise normal. Pathology demonstrated: FINAL DIAGNOSIS A. Colon, ascending polyp, biopsy: - Tubulovillous adenoma. B. Colon, random, biopsy: - Colonic mucosa with no diagnostic abnormalities. C. Colon, ascending polyp, biopsy: - Fragments of tubular adenoma. D. Colon, transverse polyp, biopsy: - Fragments of tubular adenoma. E. Colon, transverse polyp, mid, biopsy: - Fragments of tubular adenoma. F. Colon, sigmoid polyp, biopsy: - Tubular adenoma The patient notes no complaints since the procedure. States BMS have become more regular. VITALS: Blood pressure 136/72, pulse 70, temperature 36.9 ?C (98.4 ?F), weight 128.1 kg (282 lb 6.4 oz), SpO2 100 %. General: patient is alert, cooperative, pleasant and in no acute distress On examination, the abdomen is benign. Assessment IMPRESSION: s/p colonoscopy with polypectomy, multiple adenomatous polyps including tubulovillous adenoma PLAN: The operative findings and pathology report were reviewed with the patient, and the patient has had the opportunity to ask questions and have questions answered. If the patient notes any problems or changes in bowel function, the patient should contact me immediately. Otherwise I recommend follow up endoscopy in 2 years based on number of polyp and final path showing a polyp with villous features Patient verbalized understanding of all above and agreed with the plan Diagnoses: (D36.9) Tubular adenoma (primary encounter diagnosis) (D36.9) Tubulovillous adenoma I spent a total of 23 minutes on the date of the service which included preparing to see the patient, [id number] patient care, completing clinical documentation, counseling and educating the patient/family/caregiver, independently interpreting results (not separately reported), and communicating results to the patient/family/caregiver. Komal Dunn PA-C [facility] 05-23-2023 Instructions Komal Dunn PA-C - 05/23/2023 11:13 AM EDT The following instructions are important for you related to your office visit today with the [facility]. INSTRUCTIONS FOLLOWING A POLYP FOUND AT COLONOSCOPY You were found to have adenomatous colon polyps. I recommend you undergo repeat endoscopy in 2 years. If you note bleeding, change in bowel habits, or other suspicious colon related symptoms before that time, those symptoms should be evaluated as necessary. If you have any difficulties or concerns, you should contact our office immediately. If you note any additional difficulties, questions, or concerns, you should contact our office immediately @ [phone] and ask to be transferred to the General Surgery department. documented in this encounter [facility] 05-23-2023 History of Presen t illness Narrative FOLLOW UP VISIT - ENDOSCOPY NAME: Mica Mynor [facility] NO.: [id number] DATE OF SERVICE: 05/23/2023 : 1945 REFERRING PHYSICIAN: MD Mica Holland is a patient I am following with Dr. Hayes for change in bowel habits and abdominal cramping. Dr. Hayes performed lower endoscopy on 05/12/23. Findings per operative report showed: Anal fissure found on perianal exam. - Eight 10 to 11 mm polyps in the sigmoid colon, in the transverse colon and in the ascending colon, removed with a hot snare. Resected and retrieved. - The entire examined colon is normal. Biopsied. - Diverticulosis in the sigmoid colon. - Non-bleeding internal hemorrhoids. - The examination was otherwise normal. Pathology demonstrated: FINAL DIAGNOSIS A. Colon, ascending polyp, biopsy: - Tubulovillous adenoma. B. Colon, random, biopsy: - Colonic mucosa with no diagnostic abnormalities. C. Colon, ascending polyp, biopsy: - Fragments of tubular adenoma. D. Colon, transverse polyp, biopsy: - Fragments of tubular adenoma. E. Colon, transverse polyp, mid, biopsy: - Fragments of tubular adenoma. F. Colon, sigmoid polyp, biopsy: - Tubular adenoma The patient notes no complaints since the procedure. States BMS have become more regular. VITALS: Blood pressure 136/72, pulse 70, temperature 36.9 C (98.4 F), weight 128.1 kg (282 lb 6.4 oz), SpO2 100 %. General: patient is alert, cooperative, pleasant and in no acute distress On examination, the abdomen is benign. Assessment IMPRESSION: s/p colonoscopy with polypectomy, multiple adenomatous polyps including tubulovillous adenoma PLAN: The operative findings and pathology report were reviewed with the patient, and the patient has had the opportunity to ask questions and have questions answered. If the patient notes any problems or changes in bowel function, the patient should contact me immediately. Otherwise I recommend follow up endoscopy in 2 years based on number of polyp and final path showing a polyp with villous features Patient verbalized understanding of all above and agreed with the plan Diagnoses: (D36.9) Tubular adenoma (primary encounter diagnosis) (D36.9) Tubulovillous adenoma I spent a total of 23 minutes on the date of the service which included preparing to see the patient, [id number] patient care, completing clinical documentation, counseling and educating the patient/family/caregiver, independently interpreting results (not separately reported), and communicating results to the patient/family/caregiver. Komal Dunn PA-C documented in this encounter [facility] 05-12-2023 Note HNO ID: [id number] Author: Aminah Myers RN Service: ? Author Type: Registered Nurse Type: Nursing Progress Note Filed: 05/12/2023 10:11 AM Note Text: Abdomen semi firm and distended. Instructed patient to pass air via rectum. Will continue to monitor. [facility] 05-12-2023 Nurse Note Abdomen semi firm and distended. Instructed patient to pass air via rectum. Will continue to monitor. documented in this encounter [facility] 05-12-2023 History and physical note Images from the original note were not included. HISTORY AND PHYSICAL Mica Hart 1945 REFERRING PHYSICIAN: Annemarie Small APRN.C* CHIEF COMPLAINT: Consult (Screening for colon cancer) HPI: The patient is a 77 year old female referred for endoscopy. Mica notes For about a week and a half has had on/off diarrhea. Can have a few bouts a day depending on what she eats. Consistency is loose to watery. Has only been eating crackers and chicken noodle soup and drinking 7-up. Taking imodium a few times a day which helps some. Reports she has a hx of IBS and this happens some times but normally not this long. Admit to some abdominal cramping which feels like spasms and mild nausea. Denies weight loss, fevers, chills, vomiting, constipation, melana or hematochezia. The patient notes no history of upper GI complaints. Mica has undergone prior endoscopy. 2010 The patient is being seen by me today at the request of Dr. Small for my opinion and advice regarding Screening for colon cancer PAST MEDICAL HISTORY PAST MEDICAL HISTORY Diagnosis Date Atrophic gastritis without mention of hemorrhage GASTRITIS CHRONIC ATROPHIC( W/O Hemorrhage) Benign neoplasm of colon CAD (coronary artery disease) s/p stent, Seeing Dr. Robertson Cataracts, bilateral CKD (chronic kidney disease) stage 3, GFR 30-59 ml/min (HCC) left nephrectomy, [facility] Closed fracture of two ribs DDD (degenerative disc disease), lumbar Depression Diabetes (HCC) diet controlled Diaphragmatic hernia without mention of obstruction or gangrene HIATAL HERNIA Diverticulosis of colon (without mention of hemorrhage) Diverticulosis Elevated uric acid in blood Hypothyroidism Irritable bowel syndrome Mitral valve disorders Morbid obesity (HCC) Myalgia and myositis, unspecified FIBROMYALGIA FELICITY (obstructive sleep apnea) 11/02/2021 Osteopenia Personal history of colonic polyps Renal cell carcinoma (HCC) 04/21/[address] Hawkins Unspecified essential hypertension Essential hypertension Unspecified gastritis and gastroduodenitis without mention of hemorrhage Urinary incontinence PAST SURGICAL HISTORY PAST SURGICAL HISTORY Procedure Laterality Date APPENDECTOMY 1977 ARTHRP KNE CONDYLE&PLATU MEDIAL&LAT COMPARTMENTS 11/2008 Knee replacement, total left ARTHRP KNE CONDYLE&PLATU MEDIAL&LAT COMPARTMENTS 08/2011 Knee replacement, total Rt CHOLECYSTECTOMY 1971 Cholecystectomy COLONOSCOPY FLX DX W/COLLJ SPEC WHEN PFRMD 2004 Colonoscopy with polypectomy COLONOSCOPY FLX DX W/COLLJ SPEC WHEN PFRMD 01/28/11 ESOPHAGOGASTRODUODENOSCOPY TRANSORAL DIAGNOSTIC 01/2005 EGD LAP NEPHRECTOMY Left 03/2016 renal cell carcinoma NEUROPLASTY &/TRANSPOS MEDIAN NRV CARPAL TUNNE 06-24-05 Carpal tunnel decomp RIGHT PAST SURGICAL HISTORY OF GANGLION X2 LEFT WRIST PAST SURGICAL HISTORY OF 1989, 1966 PARTIAL THYROIDECTOMY X2 PAST SURGICAL HISTORY OF 1997 TMJ PAST SURGICAL HISTORY OF 09/2012 stent TONSILLECTOMY & ADENOIDECTOMY <AGE 13 TOTAL ABDOMINAL HYSTERECT W/WO RMVL TUBE OVARY Hysterectomy, [facility] CURRENT MEDICATIONS Current Outpatient Medications Medication Sig allopurinol (ZYLOPRIM) 100 mg tablet Take 2 tablets by mouth once daily. For gout. dicyclomine (BENTYL) 10 mg capsule Take 1 capsule by mouth before meals and at bedtime. ondansetron orally disintegrating (ZOFRAN ODT) 4 mg disintegrating tablet Take 1 tablet by mouth every 8 hours as needed for nausea/vomiting. loperamide (IMODIUM) 2 mg cap(s) Take 1 capsule by mouth four times daily as needed. pravastatin (PRAVACHOL) 80 mg tablet Take 1 tablet by mouth once daily. buPROPion SR (ZYBAN SR; WELLBUTRIN SR) 150 mg 12 hr tablet Take 1 tablet by mouth twice daily. levothyroxine (SYNTHROID) 112 mcg tablet Take 1 tablet by mouth once daily. oxybutynin ER (DITROPAN XL) 10 mg 24 hr tablet Take 1 tablet by mouth once daily. DULoxetine (CYMBALTA) 30 mg capsule Take 3 capsules by mouth once daily. losartan (COZAAR) 50 mg tablet Take 1 tablet by mouth once daily. losartan (COZAAR) 50 mg tablet Take 1 tablet by mouth once daily. colchicine 0.6 mg tablet Take 2 tabs by mouth, followed by 1 tab one hour later for gout flare. May repeat in 1 week. CPAP Initiate Auto PAP @ 5-20 cm of water with humidification. Mask (per patient preference) optional chin strap (if indicated) , filters, tubing, humidifier and lifetime supplies. blood sugar diagnostic (BLOOD GLUCOSE TEST) test strip Test blood sugar(s) 1 times daily. Dx: Type 2 DM - Controlled E11.9 Insulin: No Lancets lancets Test blood sugar(s) 1 times daily. Dx: Type 2 DM - Controlled E11.9 Insulin: No aluminum-magnesium hydroxide-simethicone (MAALOX,MYLANTA,MAG-AL PLUS) 200-200-20 mg/5 mL suspension Take 30 mL by mouth every 6 hours as needed (GI upset). nystatin (MYCOSTATIN) powder Apply 1 application to affected area twice daily. peg 3350-Electrolytes (GOLYTELY) 236-22.74-6.74 -5.86 gram suspension Take 4,000 mL by mouth one time only for 1 dose. Refer to printed prep instructions from your provider. furosemide (LASIX) 20 mg tablet Take 1 tablet by mouth twice daily as needed (LE edema). Lancets (ACCU-CHEK SOFTCLIX LANCETS) lancets Test blood sugar(s) 1 times daily. Dx: Type 2 DM - Controlled E11.9 Insulin: No No current facility-administered medications for this visit. ALLERGIES: Sulfa (Sulfonamide Antibiotics), Tape [Other], Torecan [Thiethylperazine Maleate], Amitriptyline, Codeine, Motrin [Ibuprofen], Penicillins, Tcn [Tetracyclines], Voltaren [Diclofenac Sodium], Altace [Ramipril], Dyazide [Triamterene-Hydrochlorothiazid] , Flurbiprofen, Iron, Morphine, Prinivil [Lisinopril], and Vicodin [Hydrocodone-Acetaminophen] PERSONAL HISTORY: SOCIAL HISTORY Social History Tobacco Use Smoking status: Former Packs/day: 1.00 Years: 1.00 Additional pack years: 0.00 Total pack years: 1.00 Types: Cigarettes Quit date: 07/01/1975 Years since quittin.8 Smokeless tobacco: Never Vaping Use Vaping Use: Never used Substance Use Topics Alcohol use: No Drug use: No FAMILY HISTORY: FAMILY HISTORY FAMILY HISTORY Problem Relation Age of Onset Heart Mother Hypertension Mother Arthritis Mother other (dementia) Mother ? Cancer Father bladder Heart Father heart disease Cancer Brother throat Cancer Brother skin Heart Failure Maternal Grandmother No Known Problems Maternal Grandfather No Known Problems Paternal Grandmother No Known Problems Paternal Grandfather REVIEW OF SYMPTOMS: The review of systems data was entered by the nurse and reviewed by or Nursing Notes: Valarie Meyers LPN 04/19/2023 10:15 AM Signed REVIEW OF SYSTEMS: General: The patient denies fatigue, denies weight loss, denies weight gain, denies feeling hot, and denies feelings of cold. Eyes: The patient denies glaucoma, NOTES eye injury/surgery, does not wear glasses or contacts. Ear/Nose/Throat: The patient NOTES allergies, denies hayfever, denies ear infections, and denies bloody noses. Cardiovascular: The patient denies chest pain, NOTES heart disease, NOTES high blood pressure,denies cardiac stent, denies prior heart attack, denies irregular heart beat, NOTES high cholesterol, NOTES poor circulation, denies heart failure, other cardiac issues, NOTES claudication, NOTES cold feet, denies peripheral arterial stent. Respiratory: The patient denies tuberculosis, NOTES pneumonia, denies frequent cough, denies pulmonary embolism, denies shortness of breath, and denies coughing up blood. Gastrointestinal: The patient denies difficulty swallowing, NOTES acid reflux, denies ulcers, denies vomiting, denies jaundice/hepatitis, denies gallbladder problems, denies black or tarry stools, denies hemorrhoids, denies bleeding from rectum, denies diverticulitis, denies constipation, NOTES diarrhea, NOTES loss of stool control, and NOTES hernias. Kidney/Bladder: The patient denies kidney stones,NOTES KIDNEY FAILURE denies urine infections, and denies bloody urine. Skin: The patient denies a history of skin cancer, denies bleeding/changing moles, and denies a history of skin rash. Neurologic: The patient denies a history of epilepsy/convulsions, denies headaches, denies head/spinal injuries, and denies stroke/TIA. Psychiatric: The patient denies psychiatric medications, denies depression, and denies voices, denies substance abuse. Endocrine: The patient NOTES thyroid disorders, NOTES diabetes, and denies hormonal problems. Hematologic: The patient denies a history of bruising, denies bleeding, and denies anemia, denies blood clots. Infections: The patient NOTES a history of measles and mumps, denies rheumatic fever, and denies sexually transmitted diseases. Musculoskeletal: The patient denies back pain/injury, NOTES back problems, denies sciatica, NOTES knee/foot trouble, NOTES arthritis, or NOTES gout. When was patient's last Mammogram screening? 2021 Last Colonoscopy: 2010 Valarie Meyers LPN PHYSICAL EXAMINATION: General: The patient is 77 year old female, well nourished, well hydrated in no acute distress. The patient is oriented to time, place, and person. VITALS: Blood pressure 138/86, pulse 75, temperature 36.4 C (97.6 F), height 160 cm (5' 3 ), weight 129.4 kg (285 lb 3.2 oz), SpO2 97 %. Body mass index is 50.52 kg/m . HEENT: Normal cephalic, ataumatic, pupils are equally round, sclera are anicteric, mucous membranes are moist, oropharynx is clear. Neck has no masses, asymmetry or lymphadenopathy. Thyroid is unremarkable. Respiratory: Clear to auscultation and percussion. Normal respiratory excursion and pattern. Cardiac: Examination is regular rate and rhythm. Abdominal exam: Soft, nontender, with no palpable masses. No hepatosplenomegaly. No palpable hernias. Rectal exam: exam deferred Extremities: no clubbing, cyanosis or edema. No adenopathy. Other: LABORATORY VALUES: As Noted RADIOLOGIC STUDIES: As Noted Assessment IMPRESSION: Screening for colon cancer PLAN: I plan to perform lower endoscopy. We discussed the risks and benefits of the planned endoscopy. I have informed the patient that complications can occur including failure to complete the endoscopy and perforation. The patient had the opportunity to ask questions concerning the planned endoscopy. My staff has also explained the procedure to the patient in understandable terms and has given the patient printed material concerning the procedure. The patient freely consents to surgery. I plan to use golytely bowel preparation for endoscopy Diagnoses: (Z12.11) Screening for colon cancer My findings have been communicated to Dr. Small via shared medical record. This note will be forwarded to Dr. Sienna Saldivar MD. Return to Clinic: The patient is instructed to follow-up with me 1 week post operatively. Festus Hayes III, MD UPDATED HISTORY AND PHYSICAL EXAMINATION SERVICE DATE: 05/12/2023 SERVICE TIME: 9:09 AM PHYSICAL EXAM MUST BE COMPLETED ON ADMISSION The History and Physical (completed in the past 30 days) has been reviewed and the patient has been examined. The contents accurately reflect the patient's condition with the following additions or revisions since the H&P was completed. Examination indicates no changes. This H&P can be found in the attached. SIGNATURE: Festus Hayes III, MD PATIENT NAME: Mica Hart DATE: May 12, 2023 TIME: 9:09 AM documented in this encounter [facility] 04-26-2023 Note HNO ID: [id number] Author: Annemarie Small APRN.[employer] Service: ? Author Type: Nurse Practitioner Type: Progress Notes Filed: 04/26/2023 1:52 PM Note Text: 04/26/2023 Patient presents with: Gout: Right foot x 3 days SUBJECTIVE: This is a 77 year old that is here today for Above Complaints.. Tuesday started with swelling, redness and pain right big toe. Hurts to walk. Taking her allopurinol as prescribed. Gout flare to left big toe in February treated with colchicine and improved. Has been using tylenol which doesn't seem to help much. Denies recent injury, fevers, chills, or red streaking PAST MEDICAL HISTORY Diagnosis Date Atrophic gastritis without mention of hemorrhage GASTRITIS CHRONIC ATROPHIC( W/O Hemorrhage) Benign neoplasm of colon CAD (coronary artery disease) s/p stent, Seeing Dr. Robertson Cataracts, bilateral CKD (chronic kidney disease) stage 3, GFR 30-59 ml/min ([facility]) left nephrectomy, [facility] Closed fracture of two ribs DDD (degenerative disc disease), lumbar Depression Diabetes ([facility]) diet controlled Diaphragmatic hernia without mention of obstruction or gangrene HIATAL HERNIA Diverticulosis of colon (without mention of hemorrhage) Diverticulosis Elevated uric acid in blood Hypothyroidism Irritable bowel syndrome Mitral valve disorders Morbid obesity ([facility]) Myalgia and myositis, unspecified FIBROMYALGIA FELICITY (obstructive sleep apnea) 11/02/2021 Osteopenia Personal history of colonic polyps Renal cell carcinoma ([facility]) 04/21/[address] Hawkins Unspecified essential hypertension Essential hypertension Unspecified gastritis and gastroduodenitis without mention of hemorrhage Urinary incontinence ALLERGIES Sulfa (Sulfonamide Antibiotics), Tape [Other], Torecan [Thiethylperazine Maleate], Amitriptyline, Codeine, Motrin [Ibuprofen], Penicillins, Tcn [Tetracyclines], Voltaren [Diclofenac Sodium], Altace [Ramipril], Dyazide [Triamterene-Hydrochlorothiazid] , Flurbiprofen, Iron, Morphine, Prinivil [Lisinopril], and Vicodin [Hydrocodone-Acetaminophen] MEDICATIONS Current Outpatient Medications Medication Sig allopurinol (ZYLOPRIM) 100 mg tablet Take 2 tablets by mouth once daily. For gout. dicyclomine (BENTYL) 10 mg capsule Take 1 capsule by mouth before meals and at bedtime. ondansetron orally disintegrating (ZOFRAN ODT) 4 mg disintegrating tablet Take 1 tablet by mouth every 8 hours as needed for nausea/vomiting. loperamide (IMODIUM) 2 mg cap(s) Take 1 capsule by mouth four times daily as needed. pravastatin (PRAVACHOL) 80 mg tablet Take 1 tablet by mouth once daily. buPROPion SR (ZYBAN SR; WELLBUTRIN SR) 150 mg 12 hr tablet Take 1 tablet by mouth twice daily. levothyroxine (SYNTHROID) 112 mcg tablet Take 1 tablet by mouth once daily. oxybutynin ER (DITROPAN XL) 10 mg 24 hr tablet Take 1 tablet by mouth once daily. DULoxetine (CYMBALTA) 30 mg capsule Take 3 capsules by mouth once daily. losartan (COZAAR) 50 mg tablet Take 1 tablet by mouth once daily. losartan (COZAAR) 50 mg tablet Take 1 tablet by mouth once daily. colchicine 0.6 mg tablet Take 2 tabs by mouth, followed by 1 tab one hour later for gout flare. May repeat in 1 week. furosemide (LASIX) 20 mg tablet Take 1 tablet by mouth twice daily as needed (LE edema). CPAP Initiate Auto PAP @ 5-20 cm of water with humidification. Mask (per patient preference) optional chin strap (if indicated) , filters, tubing, humidifier and lifetime supplies. blood sugar diagnostic (BLOOD GLUCOSE TEST) test strip Test blood sugar(s) 1 times daily. Dx: Type 2 DM - Controlled E11.9 Insulin: No Lancets lancets Test blood sugar(s) 1 times daily. Dx: Type 2 DM - Controlled E11.9 Insulin: No Lancets (ACCU-CHEK SOFTCLIX LANCETS) lancets Test blood sugar(s) 1 times daily. Dx: Type 2 DM - Controlled E11.9 Insulin: No aluminum-magnesium hydroxide-simethicone (MAALOX,MYLANTA,MAG-AL PLUS) 200-200-20 mg/5 mL suspension Take 30 mL by mouth every 6 hours as needed (GI upset). nystatin (MYCOSTATIN) powder Apply 1 application to affected area twice daily. No current facility-administered medications for this visit. Medications and allergies reviewed by this provider. SOCIAL HISTORY Social History Tobacco Use Smoking status: Former Packs/day: 1.00 Years: 1.00 Additional pack years: 0.00 Total pack years: 1.00 Types: Cigarettes Quit date: 07/01/1975 Years since quittin.8 Smokeless tobacco: Never Vaping Use Vaping Use: Never used Substance Use Topics Alcohol use: No Drug use: No REVIEW OF SYSTEMS All other reviewed and negative other than HPI. OBJECTIVE: BP 122/72 Pulse 67 Temp 37.2 ?C (99 ?F) Resp 18 SpO2 97% . Vital signs reviewed by this provider. APPEARANCE Well appearing, alert, in no acute distress, well-hydrated, well nourished. RIGHT FOOT: Mild erythema and warmth over the right 1 st MTP joint with limited ROM due to pain. 2+ pedal (more content not included)... [facility] 04-26-[facility]23 Miscellaneous Notes Pt called to inquire about the phone message yest, pt was notified she has an appt today & pt states she didn't know about the appt. Pt called at appt time so another appt was scheduled for this afternoon. Tova Ortiz LPN Message left for pt to call back. Looks like she is scheduled tomorrow 04/26 for appt but for other issue. Tiffanie Miles Ma Recommend appointment to evaluate Annemarie Small APRN.MARCUS Pt calls to report that she has been taking allopurinol 100 mg bid and gout was doing better. Pt reports over the weekend the right foot flared up again and is a 10 on pain scale. Pt reports she is having trouble walking with the pain. Pt reports left foot is a little flared up. Pt is asking if something stronger can be called in for the flare-up. Pt declined appt stating it hurts to walk and if provider could call medication into the pharmacy pt would prefer that. Trish Portillo LPN documented in this encounter [facility] 04-19-2023 Note HNO ID: [id number] Author: Festus Hayes MD Service: ? Author Type: Physician Type: Progress Notes Filed: 04/19/2023 10:45 AM Note Text: HISTORY AND PHYSICAL Mica Hart 1945 REFERRING PHYSICIAN: Annemarie Small APRN.C* CHIEF COMPLAINT: Consult (Screening for colon cancer) HPI: The patient is a 77 year old female referred for endoscopy. Mica notes For about a week and a half has had on/off diarrhea. Can have a few bouts a day depending on what she eats. Consistency is loose to watery. Has only been eating crackers and chicken noodle soup and drinking 7-up. Taking imodium a few times a day which helps some. Reports she has a hx of IBS and this happens some times but normally not this long. Admit to some abdominal cramping which feels like spasms and mild nausea. Denies weight loss, fevers, chills, vomiting, constipation, melana or hematochezia. The patient notes no history of upper GI complaints. Mica has undergone prior endoscopy. 2010 The patient is being seen by me today at the request of Dr. Small for my opinion and advice regarding Screening for colon cancer PAST MEDICAL HISTORY Diagnosis Date Atrophic gastritis without mention of hemorrhage GASTRITIS CHRONIC ATROPHIC( W/O Hemorrhage) Benign neoplasm of colon CAD (coronary artery disease) s/p stent, Seeing Dr. Robertson Cataracts, bilateral CKD (chronic kidney disease) stage 3, GFR 30-59 ml/min (HCC) left nephrectomy, [facility] Closed fracture of two ribs DDD (degenerative disc disease), lumbar Depression Diabetes (HCC) diet controlled Diaphragmatic hernia without mention of obstruction or gangrene HIATAL HERNIA Diverticulosis of colon (without mention of hemorrhage) Diverticulosis Elevated uric acid in blood Hypothyroidism Irritable bowel syndrome Mitral valve disorders Morbid obesity (HCC) Myalgia and myositis, unspecified FIBROMYALGIA FELICITY (obstructive sleep apnea) 11/02/2021 Osteopenia Personal history of colonic polyps Renal cell carcinoma (HCC) 04/21/[address] Hawkins Unspecified essential hypertension Essential hypertension Unspecified gastritis and gastroduodenitis without mention of hemorrhage Urinary incontinence PAST SURGICAL HISTORY Procedure Laterality Date APPENDECTOMY 1977 ARTHRP KNE CONDYLEANDPLATU MEDIALANDLAT COMPARTMENTS 11/2008 Knee replacement, total left ARTHRP KNE CONDYLEANDPLATU MEDIALANDLAT COMPARTMENTS 08/2011 Knee replacement, total Rt CHOLECYSTECTOMY 1971 Cholecystectomy COLONOSCOPY FLX DX W/COLLJ SPEC WHEN PFRMD 2004 Colonoscopy with polypectomy COLONOSCOPY FLX DX W/COLLJ SPEC WHEN PFRMD 01/28/11 ESOPHAGOGASTRODUODENOSCOPY TRANSORAL DIAGNOSTIC 01/2005 EGD LAP NEPHRECTOMY Left 03/2016 renal cell carcinoma NEUROPLASTY AND/TRANSPOS MEDIAN NRV CARPAL TUNNE 06-24-05 Carpal tunnel decomp RIGHT PAST SURGICAL HISTORY OF GANGLION X2 LEFT WRIST PAST SURGICAL HISTORY OF 1989, 1966 PARTIAL THYROIDECTOMY X2 PAST SURGICAL HISTORY OF 1997 TMJ PAST SURGICAL HISTORY OF 09/2012 stent TONSILLECTOMY AND ADENOIDECTOMY TOTAL ABDOMINAL HYSTERECT W/WO RMVL TUBE OVARY Hysterectomy, [facility] Current Outpatient Medications Medication Sig allopurinol (ZYLOPRIM) 100 mg tablet Take 2 tablets by mouth once daily. For gout. dicyclomine (BENTYL) 10 mg capsule Take 1 capsule by mouth before meals and at bedtime. ondansetron orally disintegrating (ZOFRAN ODT) 4 mg disintegrating tablet Take 1 tablet by mouth every 8 hours as needed for nausea/vomiting. loperamide (IMODIUM) 2 mg cap(s) Take 1 capsule by mouth four times daily as needed. pravastatin (PRAVACHOL) 80 mg tablet Take 1 tablet by mouth once daily. buPROPion SR (ZYBAN SR; WELLBUTRIN SR) 150 mg 12 hr tablet Take 1 tablet by mouth twice daily. levothyroxine (SYNTHROID) 112 mcg tablet Take 1 tablet by mouth once daily. oxybutynin ER (DITROPAN XL) 10 mg 24 hr tablet Take 1 tablet by mouth once daily. DULoxetine (CYMBALTA) 30 mg capsule Take 3 capsules by mouth once daily. losartan (COZAAR) 50 mg tablet Take 1 tablet by mouth once daily. losartan (COZAAR) 50 mg tablet Take 1 tablet by mouth once daily. colchicine 0.6 mg tablet Take 2 tabs by mouth, followed by 1 tab one hour later for gout flare. May repeat in 1 week. CPAP Initiate Auto PAP @ 5-20 cm of water with humidification. Mask (per patient preference) optional chin strap (if indicated) , filters, tubing, humidifier and lifetime supplies. blood sugar diagnostic (BLOOD GLUCOSE TEST) test strip Test blood sugar(s) 1 times daily. Dx: Type 2 DM - Controlled E11.9 Insulin: No Lancets lancets Test blood sugar(s) 1 times daily. Dx: Type 2 DM - Controlled E11.9 Insulin: No aluminum-magnesium hydroxide-simethicone (MAALOX,MYLANTA,MAG-AL PLUS) 200-200-20 mg/5 mL suspension Take 30 mL by mouth every 6 hours as needed (GI upset). nystatin (MYCOSTATIN) powder Apply 1 application to affected area twice daily. peg (more content not included)... [facility] 04-19-2023 History of Presen t illness Narrative HISTORY AND PHYSICAL Mica Hart 1945 REFERRING PHYSICIAN: Annemarie Small APRN.C* CHIEF COMPLAINT: Consult (Screening for colon cancer) HPI: The patient is a 77 year old female referred for endoscopy. Mica notes For about a week and a half has had on/off diarrhea. Can have a few bouts a day depending on what she eats. Consistency is loose to watery. Has only been eating crackers and chicken noodle soup and drinking 7-up. Taking imodium a few times a day which helps some. Reports she has a hx of IBS and this happens some times but normally not this long. Admit to some abdominal cramping which feels like spasms and mild nausea. Denies weight loss, fevers, chills, vomiting, constipation, melana or hematochezia. The patient notes no history of upper GI complaints. Mica has undergone prior endoscopy. 2010 The patient is being seen by me today at the request of Dr. Small for my opinion and advice regarding Screening for colon cancer PAST MEDICAL HISTORY Diagnosis Date Atrophic gastritis without mention of hemorrhage GASTRITIS CHRONIC ATROPHIC( W/O Hemorrhage) Benign neoplasm of colon CAD (coronary artery disease) s/p stent, Seeing Dr. Robertson Cataracts, bilateral CKD (chronic kidney disease) stage 3, GFR 30-59 ml/min ([facility]) left nephrectomy, [facility] Closed fracture of two ribs DDD (degenerative disc disease), lumbar Depression Diabetes (HCC) diet controlled Diaphragmatic hernia without mention of obstruction or gangrene HIATAL HERNIA Diverticulosis of colon (without mention of hemorrhage) Diverticulosis Elevated uric acid in blood Hypothyroidism Irritable bowel syndrome Mitral valve disorders Morbid obesity (HCC) Myalgia and myositis, unspecified FIBROMYALGIA FELICITY (obstructive sleep apnea) 11/02/2021 Osteopenia Personal history of colonic polyps Renal cell carcinoma (HCC) 04/21/[address] Hawkins Unspecified essential hypertension Essential hypertension Unspecified gastritis and gastroduodenitis without mention of hemorrhage Urinary incontinence PAST SURGICAL HISTORY Procedure Laterality Date APPENDECTOMY 1976 ARTHRP KNE CONDYLE&PLATU MEDIAL&LAT COMPARTMENTS 11/2008 Knee replacement, total left ARTHRP KNE CONDYLE&PLATU MEDIAL&LAT COMPARTMENTS 08/2011 Knee replacement, total Rt CHOLECYSTECTOMY 1971 Cholecystectomy COLONOSCOPY FLX DX W/COLLJ SPEC WHEN PFRMD 2004 Colonoscopy with polypectomy COLONOSCOPY FLX DX W/COLLJ SPEC WHEN PFRMD 01/28/11 ESOPHAGOGASTRODUODENOSCOPY TRANSORAL DIAGNOSTIC 01/2005 EGD LAP NEPHRECTOMY Left 03/2016 renal cell carcinoma NEUROPLASTY &/TRANSPOS MEDIAN NRV CARPAL TUNNE 06-24-05 Carpal tunnel decomp RIGHT PAST SURGICAL HISTORY OF GANGLION X2 LEFT WRIST PAST SURGICAL HISTORY OF 1989, 1966 PARTIAL THYROIDECTOMY X2 PAST SURGICAL HISTORY OF 1997 TMJ PAST SURGICAL HISTORY OF 09/2012 stent TONSILLECTOMY & ADENOIDECTOMY <AGE 13 TOTAL ABDOMINAL HYSTERECT W/WO RMVL TUBE OVARY Hysterectomy, LORNA Current Outpatient Medications Medication Sig allopurinol (ZYLOPRIM) 100 mg tablet Take 2 tablets by mouth once daily. For gout. dicyclomine (BENTYL) 10 mg capsule Take 1 capsule by mouth before meals and at bedtime. ondansetron orally disintegrating (ZOFRAN ODT) 4 mg disintegrating tablet Take 1 tablet by mouth every 8 hours as needed for nausea/vomiting. loperamide (IMODIUM) 2 mg cap(s) Take 1 capsule by mouth four times daily as needed. pravastatin (PRAVACHOL) 80 mg tablet Take 1 tablet by mouth once daily. buPROPion SR (ZYBAN SR; WELLBUTRIN SR) 150 mg 12 hr tablet Take 1 tablet by mouth twice daily. levothyroxine (SYNTHROID) 112 mcg tablet Take 1 tablet by mouth once daily. oxybutynin ER (DITROPAN XL) 10 mg 24 hr tablet Take 1 tablet by mouth once daily. DULoxetine (CYMBALTA) 30 mg capsule Take 3 capsules by mouth once daily. losartan (COZAAR) 50 mg tablet Take 1 tablet by mouth once daily. losartan (COZAAR) 50 mg tablet Take 1 tablet by mouth once daily. colchicine 0.6 mg tablet Take 2 tabs by mouth, followed by 1 tab one hour later for gout flare. May repeat in 1 week. CPAP Initiate Auto PAP @ 5-20 cm of water with humidification. Mask (per patient preference) optional chin strap (if indicated) , filters, tubing, humidifier and lifetime supplies. blood sugar diagnostic (BLOOD GLUCOSE TEST) test strip Test blood sugar(s) 1 times daily. Dx: Type 2 DM - Controlled E11.9 Insulin: No Lancets lancets Test blood sugar(s) 1 times daily. Dx: Type 2 DM - Controlled E11.9 Insulin: No aluminum-magnesium hydroxide-simethicone (MAALOX,MYLANTA,MAG-AL PLUS) 200-200-20 mg/5 mL suspension Take 30 mL by mouth every 6 hours as needed (GI upset). nystatin (MYCOSTATIN) powder Apply 1 application to affected area twice daily. peg 3350-Electrolytes (GOLYTELY) 236-22.74-6.74 -5.86 gram suspension Take 4,000 mL by mouth one time only for 1 dose. Refer to printed prep instructions from your provider. furosemide (LASIX) 20 mg tablet Take 1 tablet by mouth twice daily as needed (LE edema). Lancets (ACCU-CHEK SOFTCLIX LANCETS) lancets Test blood sugar(s) 1 times daily. Dx: Type 2 DM - Controlled E11.9 Insulin: No No current facility-administered medications for this visit. ALLERGIES: Sulfa (Sulfonamide Antibiotics), Tape [Other], Torecan [Thiethylperazine Maleate], Amitriptyline, Codeine, Motrin [Ibuprofen], Penicillins, Tcn [Tetracyclines], Voltaren [Diclofenac Sodium], Altace [Ramipril], Dyazide [Triamterene-Hydrochlorothiazid] , Flurbiprofen, Iron, Morphine, Prinivil [Lisinopril], and Vicodin [Hydrocodone-Acetaminophen] PERSONAL HISTORY: Social History Tobacco Use Smoking status: Former Packs/day: 1.00 Years: 1.00 Additional pack years: 0.00 Total pack years: 1.00 Types: Cigarettes Quit date: 07/01/1975 Years since quittin.8 Smokeless tobacco: Never Vaping Use Vaping Use: Never used Substance Use Topics Alcohol use: No Drug use: No FAMILY HISTORY: FAMILY HISTORY Problem Relation Age of Onset Heart Mother Hypertension Mother Arthritis Mother other (dementia) Mother ? Cancer Father bladder Heart Father heart disease Cancer Brother throat Cancer Brother skin Heart Failure Maternal Grandmother No Known Problems Maternal Grandfather No Known Problems Paternal Grandmother No Known Problems Paternal Grandfather REVIEW OF SYMPTOMS: The review of systems data was entered by the nurse and reviewed by me Nursing Notes: Valarie MeyersBELLA 04/19/2023 10:15 AM Signed REVIEW OF SYSTEMS: General: The patient denies fatigue, denies weight loss, denies weight gain, denies feeling hot, and denies feelings of cold. Eyes: The patient denies glaucoma, NOTES eye injury/surgery, does not wear glasses or contacts. Ear/Nose/Throat: The patient NOTES allergies, denies hayfever, denies ear infections, and denies bloody noses. Cardiovascular: The patient denies chest pain, NOTES heart disease, NOTES high blood pressure,denies cardiac stent, denies prior heart attack, denies irregular heart beat, NOTES high cholesterol, NOTES poor circulation, denies heart failure, other cardiac issues, NOTES claudication, NOTES cold feet, denies peripheral arterial stent. Respiratory: The patient denies tuberculosis, NOTES pneumonia, denies frequent cough, denies pulmonary embolism, denies shortness of breath, and denies coughing up blood. Gastrointestinal: The patient denies difficulty swallowing, NOTES acid reflux, denies ulcers, denies vomiting, denies jaundice/hepatitis, denies gallbladder problems, denies black or tarry stools, denies hemorrhoids, denies bleeding from rectum, denies diverticulitis, denies constipation, NOTES diarrhea, NOTES loss of stool control, and NOTES hernias. Kidney/Bladder: The patient denies kidney stones,NOTES KIDNEY FAILURE denies urine infections, and denies bloody urine. Skin: The patient denies a history of skin cancer, denies bleeding/changing moles, and denies a history of skin rash. Neurologic: The patient denies a history of epilepsy/convulsions, denies headaches, denies head/spinal injuries, and denies stroke/TIA. Psychiatric: The patient denies psychiatric medications, denies depression, and denies voices, denies substance abuse. Endocrine: The patient NOTES thyroid disorders, NOTES diabetes, and denies hormonal problems. Hematologic: The patient denies a history of bruising, denies bleeding, and denies anemia, denies blood clots. Infections: The patient NOTES a history of measles and mumps, denies rheumatic fever, and denies sexually transmitted diseases. Musculoskeletal: The patient denies back pain/injury, NOTES back problems, denies sciatica, NOTES knee/foot trouble, NOTES arthritis, or NOTES gout. When was patient's last Mammogram screening? 2021 Last Colonoscopy: 2010 Valarie Meyers LPN PHYSICAL EXAMINATION: General: The patient is 77 year old female, well nourished, well hydrated in no acute distress. The patient is oriented to time, place, and person. VITALS: Blood pressure 138/86, pulse 75, temperature 36.4 C (97.6 F), height 160 cm (5' 3 ), weight 129.4 kg (285 lb 3.2 oz), SpO2 97 %. Body mass index is 50.52 kg/m . HEENT: Normal cephalic, ataumatic, pupils are equally round, sclera are anicteric, mucous membranes are moist, oropharynx is clear. Neck has no masses, asymmetry or lymphadenopathy. Thyroid is unremarkable. Respiratory: Clear to auscultation and percussion. Normal respiratory excursion and pattern. Cardiac: Examination is regular rate and rhythm. Abdominal exam: Soft, nontender, with no palpable masses. No hepatosplenomegaly. No palpable hernias. Rectal exam: exam deferred Extremities: no clubbing, cyanosis or edema. No adenopathy. Other: LABORATORY VALUES: As Noted RADIOLOGIC STUDIES: As Noted Assessment IMPRESSION: Screening for colon cancer PLAN: I plan to perform lower endoscopy. We discussed the risks and benefits of the planned endoscopy. I have informed the patient that complications can occur including failure to complete the endoscopy and perforation. The patient had the opportunity to ask questions concerning the planned endoscopy. My staff has also explained the procedure to the patient in understandable terms and has given the patient printed material concerning the procedure. The patient freely consents to surgery. I plan to use golytely bowel preparation for endoscopy Diagnoses: (Z12.11) Screening for colon cancer My findings have been communicated to Dr. Small via shared medical record. This note will be forwarded to Dr. Sienna Saldivar MD. Return to Clinic: The patient is instructed to follow-up with me 1 week post operatively. Festus Hayes III, MD documented in this encounter [facility] 04-19-2023 Instructions Festus Hayes MD - 04/19/2023 10:28 AM EDT Images from the original note were not included. Bowel Preparation Instructions for: Golytely, Nulytely, Trilyte or Colyte (polyethylene glycol 3350 and electrolytes) IF YOU DO NOT FOLLOW THESE DIRECTIONS, YOUR COLONOSCOPY WILL BE CANCELLED. Blum Instructions: Your bowel must be empty so that your doctor can clearly view your colon. Follow all of the instructions in this handout EXACTLY as they are written. Do NOT eat any solid food the ENTIRE day before your colonoscopy. Drink only clear liquids. Buy your bowel preparation at least 5 days before your colonoscopy. TRANSPORTATION on the Day of Your Exam A responsible person MUST be present with you at Check In prior to your colonoscopy and REMAIN in the endoscopy area until you are discharged. You are NOT ALLOWED to drive, take a taxi or bus, or leave the Endoscopy Center ALONE. If you do not have a responsible cryogenic transport driver (family member or friend) with you to take you home, your exam cannot be done with sedation and will be cancelled. Please bring a list of all of your current medications, including any Over-the Counter medications with you. Medications If you take insulin, diabetic medications or blood thinners such as Coumadin (warfarin), Plavix (clopidogrel), Ticlid (ticlopidine hydrochloride), Agrylin (anagrelide), Xarelto (Rivaroxaban), Pradaxa (Dabigatran), Eliquis (Apixaban), and Effient (Prasugrel). You MUST call the doctors who orders those medicines for instructions on altering the dosage before your colonoscopy. All other medications should be taken the day of the exam with a sip of water including ASPIRIN. Five (5) Days Before Your Colonoscopy Do NOT take medicines that stop diarrhea - such as Imodium, Kaopectate, or Pepto Bismol. Do NOT take fiber supplements - such as Metamucil, Citrucel, or Perdiem. Do NOT take products that contain iron - such as multi-vitamins (the label lists what is in the products). Do NOT take Vitamin E. Buy the prescription bowel preparation solution at your local pharmacy or drugstore pharmacy. 1 07/2019 Bowel Preparation Instructions for: Golytely, Nulytely, Trilyte or Colyte (polyethylene glycol 3350 and electrolytes) Three (3) Days Before Your Colonoscopy Do NOT eat high-fiber foods - such as popcorn, beans, seeds (flax, sunflower, quinoa), multigrain bread, nuts, salad/vegetables, or fresh and dried fruit. One (1) Day Before Your Colonoscopy Only drink clear liquids the ENTIRE DAY before your colonoscopy. Do NOT eat any solid foods. Drink at least 8 ounces of clear liquids every hour after waking up. The clear liquids you can drink include: Clear Liquid (NO RED LIQUIDS) DO NOT DRINK Gatorade, Pedialyte or Powerade Clear broth or bouillon Coffee or tea (no milk or non-dairy creamer) Carbonated and non-carbonated soft drinks Kennedy-Aid or other fruit flavored drinks Strained fruit juices (no pulp) Jell-O, popsicles, hard candy Water Alcohol Milk or non-dairy creamers Noodles or vegetables in soup Juice with pulp Liquid you cannot see through Do not use tobacco/vaping products The bowel preparation solution will be consumed in two parts. Mix the solution the evening before your colonoscopy and refrigerate before drinking. You may add the flavor pack that came with the bowel preparation. Do NOT add ice, sugar or any other flavorings to the solution. Part 1 At 6:00 PM - Evening before your colonoscopy Drink an 8-oz glass of bowel preparation every 10 minutes for a total of 8 glasses. You may continue to drink clear liquids until midnight. Part 2 On the day of your colonoscopy you may drink clear liquids up to (three) 3 hours before your procedure. 4 1/2 hours before your colonoscopy Drink an 8-oz glass of bowel preparation every 10 minutes for a total of 8 glasses. Fifteen (15) minutes later, drink an 8-oz glass of clear liquids every 15 minutes for a total of 2 glasses. You may continue to drink clear liquids up to (three) 3 hours before your exam. 2 07/2019 documented in this encounter [facility] 04-19-2023 Nurse Note REVIEW OF SYSTEMS: General: The patient denies fatigue, denies weight loss, denies weight gain, denies feeling hot, and denies feelings of cold. Eyes: The patient denies glaucoma, NOTES eye injury/surgery, does not wear glasses or contacts. Ear/Nose/Throat: The patient NOTES allergies, denies hayfever, denies ear infections, and denies bloody noses. Cardiovascular: The patient denies chest pain, NOTES heart disease, NOTES high blood pressure,denies cardiac stent, denies prior heart attack, denies irregular heart beat, NOTES high cholesterol, NOTES poor circulation, denies heart failure, other cardiac issues, NOTES claudication, NOTES cold feet, denies peripheral arterial stent. Respiratory: The patient denies tuberculosis, NOTES pneumonia, denies frequent cough, denies pulmonary embolism, denies shortness of breath, and denies coughing up blood. Gastrointestinal: The patient denies difficulty swallowing, NOTES acid reflux, denies ulcers, denies vomiting, denies jaundice/hepatitis, denies gallbladder problems, denies black or tarry stools, denies hemorrhoids, denies bleeding from rectum, denies diverticulitis, denies constipation, NOTES diarrhea, NOTES loss of stool control, and NOTES hernias. Kidney/Bladder: The patient denies kidney stones,NOTES KIDNEY FAILURE denies urine infections, and denies bloody urine. Skin: The patient denies a history of skin cancer, denies bleeding/changing moles, and denies a history of skin rash. Neurologic: The patient denies a history of epilepsy/convulsions, denies headaches, denies head/spinal injuries, and denies stroke/TIA. Psychiatric: The patient denies psychiatric medications, denies depression, and denies voices, denies substance abuse. Endocrine: The patient NOTES thyroid disorders, NOTES diabetes, and denies hormonal problems. Hematologic: The patient denies a history of bruising, denies bleeding, and denies anemia, denies blood clots. Infections: The patient NOTES a history of measles and mumps, denies rheumatic fever, and denies sexually transmitted diseases. Musculoskeletal: The patient denies back pain/injury, NOTES back problems, denies sciatica, NOTES knee/foot trouble, NOTES arthritis, or NOTES gout. When was patient's last Mammogram screening? 2021 Last Colonoscopy: 2010 Valarie Meyers LPN documented in this encounter [facility] 04-14-2023 Miscellaneous Notes Pt called and is notified of providers results and instructions. Pt voices understanding. Komal Beal RN Uric acid level improving, but is still high >6. Recommend increasing allopurinol to 200 mg daily and rechecking in 1 month or OV in May. documented in this encounter [facility] 04-13-2023 Note HNO ID: [id number] Author: Annemarie Small APRN.PEARL GLUE DRIER Service: ? Author Type: Nurse Practitioner Type: Progress Notes Filed: 04/13/2023 11:53 AM Note Text: 04/13/2023 Patient presents with: Diarrhea: Loose stool on and off for the last week SUBJECTIVE: This is a 77 year old that is here today for Above Complaints.. For about a week and a half has had on/off diarrhea. Can have a few bouts a day depending on what she eats. Consistency is loose to watery. Has only been eating crackers and chicken noodle soup and drinking 7-up. Taking imodium a few times a day which helps some. Reports she has a hx of IBS and this happens some times but normally not this long. Admit to some abdominal cramping which feels like spasms and mild nausea. Denies weight loss, fevers, chills, vomiting, constipation, melana or hematochezia. PAST MEDICAL HISTORY Diagnosis Date Atrophic gastritis without mention of hemorrhage GASTRITIS CHRONIC ATROPHIC( W/O Hemorrhage) Benign neoplasm of colon CAD (coronary artery disease) s/p stent, Seeing Dr. Robertson Cataracts, bilateral CKD (chronic kidney disease) stage 3, GFR 30-59 ml/min ([facility]) left nephrectomy, [facility] Closed fracture of two ribs DDD (degenerative disc disease), lumbar Depression Diabetes ([facility]) diet controlled Diaphragmatic hernia without mention of obstruction or gangrene HIATAL HERNIA Diverticulosis of colon (without mention of hemorrhage) Diverticulosis Elevated uric acid in blood Hypothyroidism Irritable bowel syndrome Mitral valve disorders Morbid obesity (HCC) Myalgia and myositis, unspecified FIBROMYALGIA FELICITY (obstructive sleep apnea) 11/02/2021 Osteopenia Personal history of colonic polyps Renal cell carcinoma (HCC) 04/21/[address] Hawkins Unspecified essential hypertension Essential hypertension Unspecified gastritis and gastroduodenitis without mention of hemorrhage Urinary incontinence ALLERGIES Sulfa (Sulfonamide Antibiotics), Tape [Other], Torecan [Thiethylperazine Maleate], Amitriptyline, Codeine, Motrin [Ibuprofen], Penicillins, Tcn [Tetracyclines], Voltaren [Diclofenac Sodium], Altace [Ramipril], Dyazide [Triamterene-Hydrochlorothiazid] , Flurbiprofen, Iron, Morphine, Prinivil [Lisinopril], and Vicodin [Hydrocodone-Acetaminophen] MEDICATIONS Current Outpatient Medications Medication Sig pravastatin (PRAVACHOL) 80 mg tablet Take 1 tablet by mouth once daily. buPROPion SR (ZYBAN SR; WELLBUTRIN SR) 150 mg 12 hr tablet Take 1 tablet by mouth twice daily. levothyroxine (SYNTHROID) 112 mcg tablet Take 1 tablet by mouth once daily. oxybutynin ER (DITROPAN XL) 10 mg 24 hr tablet Take 1 tablet by mouth once daily. DULoxetine (CYMBALTA) 30 mg capsule Take 3 capsules by mouth once daily. losartan (COZAAR) 50 mg tablet Take 1 tablet by mouth once daily. losartan (COZAAR) 50 mg tablet Take 1 tablet by mouth once daily. allopurinol (ZYLOPRIM) 100 mg tablet Take 1 tablet by mouth once daily. For gout. colchicine 0.6 mg tablet Take 2 tabs by mouth, followed by 1 tab one hour later for gout flare. May repeat in 1 week. furosemide (LASIX) 20 mg tablet Take 1 tablet by mouth twice daily as needed (LE edema). CPAP Initiate Auto PAP @ 5-20 cm of water with humidification. Mask (per patient preference) optional chin strap (if indicated) , filters, tubing, humidifier and lifetime supplies. loperamide (IMODIUM) 2 mg cap(s) Take 1 capsule by mouth four times daily as needed. blood sugar diagnostic (BLOOD GLUCOSE TEST) test strip Test blood sugar(s) 1 times daily. Dx: Type 2 DM - Controlled E11.9 Insulin: No Lancets lancets Test blood sugar(s) 1 times daily. Dx: Type 2 DM - Controlled E11.9 Insulin: No Lancets (ACCU-CHEK SOFTCLIX LANCETS) lancets Test blood sugar(s) 1 times daily. Dx: Type 2 DM - Controlled E11.9 Insulin: No aluminum-magnesium hydroxide-simethicone (MAALOX,MYLANTA,MAG-AL PLUS) 200-200-20 mg/5 mL suspension Take 30 mL by mouth every 6 hours as needed (GI upset). nystatin (MYCOSTATIN) powder Apply 1 application to affected area twice daily. No current facility-administered medications for this visit. Medications and allergies reviewed by this provider. SOCIAL HISTORY Social History Tobacco Use Smoking status: Former Packs/day: 1.00 Years: 1.00 Additional pack years: 0.00 Total pack years: 1.00 Types: Cigarettes Quit date: 07/01/1975 Years since quittin.8 Smokeless tobacco: Never Vaping Use Vaping Use: Never used Substance Use Topics Alcohol use: No Drug use: No REVIEW OF SYSTEMS All other reviewed and negative other than HPI. OBJECTIVE: BP 142/78 Pulse 61 Temp 37.1 ?C (98.7 ?F) Resp 18 Wt 127.1 kg (280 lb 3.2 oz) SpO2 92% BMI 49.64 kg/m? . Vital signs reviewed by this provider. APPEARANCE Well appearing, alert, in no acute distress, well-hydrated, well nourished. EYES conjunctiva and sclera normal. HEART RRR with n (more content not included)... [facility] 04-13-2023 Instructions PodlogAnnemarie cloud APRN.PE[employer] GL[employer]ER - 04/13/2023 11:39 AM EDT Take 4 mg imodium at onset of diarrhea, then take 2 mg after each loose stool. Max dose of imodium in a day is 16 mg BRAT DIET (may eat any of the following as tolerated) Bananas Applesauce [place] Saltine Crackers Animal Crackers Pretzels Oatmeal Unsweetened Dry Cereal (Rice Krispies, Cheerios) Plain Baked or Boiled Potato Plain White Rice Plain Noodles All clear liquid listed below CLEAR LIQUID DIET (need to drink 2 ounces total every half hour) Broth Olaf Popsicles Pedialyte Gatorade NO Juices NO Milk NO Dairy Products Call if urine output is decreased or she develops dry mucous membranes, or lethargy. documented in this encounter [facility] 04-13-2023 History of Presen t illness Narrative 04/13/2023 Patient presents with: Diarrhea: Loose stool on and off for the last week SUBJECTIVE: This is a 77 year old that is here today for Above Complaints.. For about a week and a half has had on/off diarrhea. Can have a few bouts a day depending on what she eats. Consistency is loose to watery. Has only been eating crackers and chicken noodle soup and drinking 7-up. Taking imodium a few times a day which helps some. Reports she has a hx of IBS and this happens some times but normally not this long. Admit to some abdominal cramping which feels like spasms and mild nausea. Denies weight loss, fevers, chills, vomiting, constipation, melana or hematochezia. PAST MEDICAL HISTORY Diagnosis Date Atrophic gastritis without mention of hemorrhage GASTRITIS CHRONIC ATROPHIC( W/O Hemorrhage) Benign neoplasm of colon CAD (coronary artery disease) s/p stent, Seeing Dr. Robertson Cataracts, bilateral CKD (chronic kidney disease) stage 3, GFR 30-59 ml/min ([facility]) left nephrectomy, [facility] Closed fracture of two ribs DDD (degenerative disc disease), lumbar Depression Diabetes (HCC) diet controlled Diaphragmatic hernia without mention of obstruction or gangrene HIATAL HERNIA Diverticulosis of colon (without mention of hemorrhage) Diverticulosis Elevated uric acid in blood Hypothyroidism Irritable bowel syndrome Mitral valve disorders Morbid obesity (HCC) Myalgia and myositis, unspecified FIBROMYALGIA FELICITY (obstructive sleep apnea) 11/02/2021 Osteopenia Personal history of colonic polyps Renal cell carcinoma (HCC) 04/21/[address] Hawkins Unspecified essential hypertension Essential hypertension Unspecified gastritis and gastroduodenitis without mention of hemorrhage Urinary incontinence ALLERGIES Sulfa (Sulfonamide Antibiotics), Tape [Other], Torecan [Thiethylperazine Maleate], Amitriptyline, Codeine, Motrin [Ibuprofen], Penicillins, Tcn [Tetracyclines], Voltaren [Diclofenac Sodium], Altace [Ramipril], Dyazide [Triamterene-Hydrochlorothiazid] , Flurbiprofen, Iron, Morphine, Prinivil [Lisinopril], and Vicodin [Hydrocodone-Acetaminophen] MEDICATIONS Current Outpatient Medications Medication Sig pravastatin (PRAVACHOL) 80 mg tablet Take 1 tablet by mouth once daily. buPROPion SR (ZYBAN SR; WELLBUTRIN SR) 150 mg 12 hr tablet Take 1 tablet by mouth twice daily. levothyroxine (SYNTHROID) 112 mcg tablet Take 1 tablet by mouth once daily. oxybutynin ER (DITROPAN XL) 10 mg 24 hr tablet Take 1 tablet by mouth once daily. DULoxetine (CYMBALTA) 30 mg capsule Take 3 capsules by mouth once daily. losartan (COZAAR) 50 mg tablet Take 1 tablet by mouth once daily. losartan (COZAAR) 50 mg tablet Take 1 tablet by mouth once daily. allopurinol (ZYLOPRIM) 100 mg tablet Take 1 tablet by mouth once daily. For gout. colchicine 0.6 mg tablet Take 2 tabs by mouth, followed by 1 tab one hour later for gout flare. May repeat in 1 week. furosemide (LASIX) 20 mg tablet Take 1 tablet by mouth twice daily as needed (LE edema). CPAP Initiate Auto PAP @ 5-20 cm of water with humidification. Mask (per patient preference) optional chin strap (if indicated) , filters, tubing, humidifier and lifetime supplies. loperamide (IMODIUM) 2 mg cap(s) Take 1 capsule by mouth four times daily as needed. blood sugar diagnostic (BLOOD GLUCOSE TEST) test strip Test blood sugar(s) 1 times daily. Dx: Type 2 DM - Controlled E11.9 Insulin: No Lancets lancets Test blood sugar(s) 1 times daily. Dx: Type 2 DM - Controlled E11.9 Insulin: No Lancets (ACCU-CHEK SOFTCLIX LANCETS) lancets Test blood sugar(s) 1 times daily. Dx: Type 2 DM - Controlled E11.9 Insulin: No aluminum-magnesium hydroxide-simethicone (MAALOX,MYLANTA,MAG-AL PLUS) 200-200-20 mg/5 mL suspension Take 30 mL by mouth every 6 hours as needed (GI upset). nystatin (MYCOSTATIN) powder Apply 1 application to affected area twice daily. No current facility-administered medications for this visit. Medications and allergies reviewed by this provider. SOCIAL HISTORY Social History Tobacco Use Smoking status: Former Packs/day: 1.00 Years: 1.00 Additional pack years: 0.00 Total pack years: 1.00 Types: Cigarettes Quit date: 07/01/1975 Years since quittin.8 Smokeless tobacco: Never Vaping Use Vaping Use: Never used Substance Use Topics Alcohol use: No Drug use: No REVIEW OF SYSTEMS All other reviewed and negative other than HPI. OBJECTIVE: BP 142/78 Pulse 61 Temp 37.1 C (98.7 F) Resp 18 Wt 127.1 kg (280 lb 3.2 oz) SpO2 92% BMI 49.64 kg/m . Vital signs reviewed by this provider. APPEARANCE Well appearing, alert, in no acute distress, well-hydrated, well nourished. EYES conjunctiva and sclera normal. HEART RRR with normal S1 and S2, no murmurs, no gallops, no JVD appreciated LUNG clear to auscultation. No wheezes, rhonchi or rales ABDOMEN bowel sounds normoactive, no bruits, soft, non-tender, non-distended, no rebound tenderness or guarding SKIN Skin color, texture, turgor normal, no suspicious rashes or lesions to exposed skin BP CONTROLLED (<130/80) Never done ADVANCE DIRECTIVE DISCUSSION Never done COVID-19 VACCINE(6 - Moderna series) due on 09/24/2022 URINE ALBUMIN:CREATININE RATIO due on 04/29/2023 LDL CHOLESTEROL due on 04/29/2023 INFLUENZA(1) due on 04/15/2023 HBA1C due on 05/31/2023 DIABETIC FOOT EXAM due on 06/25/2023 DTAP,TDAP,TD(3 - Tdap) due on 07/11/2023 SERUM CREATININE due on 01/18/2024 ANNUAL PCP TEAM CHRONIC DISEASE VISIT due on 03/09/2024 HEMOGLOBIN/HEMATOCRIT due on 03/09/2024 BONE DENSITY Completed HEPATITIS C SCREENING Completed SHINGRIX VACCINE Completed PNEUMOCOCCAL: 65+ Completed HPV VACCINE Aged Out MAMMOGRAM Discontinued DILATED RETINAL EXAM Discontinued COLORECTAL CANCER SCREENING Discontinued ASSESSMENT/PLAN: 1. Diarrhea, unspecified type - ICD9: 787.91, ICD10: R19.7 (primary diagnosis) - no red flag symptoms or exam findings - red flag symptoms discussed, verbalizes understanding - LOPERAMIDE 2 MG CAPSULE - increase fiber in diet - follow-up if symptoms fail to improve to ER with red flag symptoms 2. Screening for colon cancer - ICD9: V76.51, ICD10: Z12.11 - patient reports she is over due for a colonoscopy - CONSULT TO GENERAL SURGERY 3. Abdominal spasms - ICD9: 789.00, ICD10: R10.9 - plan as in #1 - DICYCLOMINE 10 MG CAPSULE 4. Nausea - ICD9: 787.02, ICD10: R11.0 - plan as in #1 - ONDANSETRON 4 MG DISINTEGRATING TABLET Annemarie Small APRN.PE[employer] GL[employer] D[employer]ER Prescription instructions reviewed with patient as applicable. Patient advised if symptoms do not improve or if symptoms worsen sooner, to contact their primary care physician. Potential red flag symptoms discussed with the patient. Reviewed appropriate action plan to take if red flag symptoms occur. Patient agreeable to treatment plan. I spent a total of 25 minutes on the date of the service which included preparing to see the patient, [id number] patient care, completing clinical documentation, obtaining and/or reviewing separately obtained history, performing a medically appropriate examination, counseling and educating the patient/family/caregiver, and ordering medications, tests, or procedures. documented in this encounter [facility] 03-30-2023 Miscellaneous Notes Patient phones requesting refills as follows: Requested Prescriptions Pending Prescriptions Disp Refills pravastatin (PRAVACHOL) 80 mg tablet 90 tablet 1 Sig: Take 1 tablet by mouth once daily. buPROPion SR (ZYBAN SR; WELLBUTRIN SR) 150 mg 12 hr tablet 180 tablet 1 Sig: Take 1 tablet by mouth twice daily. levothyroxine (SYNTHROID) 112 mcg tablet 90 tablet 1 Sig: Take 1 tablet by mouth once daily. oxybutynin ER (DITROPAN XL) 10 mg 24 hr tablet 90 tablet 1 Sig: Take 1 tablet by mouth once daily. DULoxetine (CYMBALTA) 30 mg capsule 270 capsule 1 Sig: Take 3 capsules by mouth once daily. BONITA-03/09/23 Labs-03/09/23 NOV-05/31/23 Please review and advise. Terese Vasquez LPN documented in this encounter [facility] 03-10-2023 Miscellaneous Notes Pt notified and voiced understanding. Tiffanie Miles Ma Labs consistent with gout flare. Continue colchicine. Start allopurinol after to pain, redness, and swelling resolves. Recheck uric acid level in 2-3 weeks so we can adjust dosage of allopurinol. documented in this encounter [facility] 03-09-2023 Note HNO ID: [id number] Author: Consuelo Bella RT(R) Service: Radiology Author Type: Technologist Type: Progress Notes Filed: 03/09/2023 11:42 AM Note Text: Radiology Service Progress Note PATIENT NAME: Mica Hart DATE OF SERVICE: March 09, 2023 TIME: 11:32 AM PATIENT IDENTITY VERIFICATION COMPLETED USING TWO (2) IDENTIFIERS: Name and Date of confirmed by patient verbally. FALL SCREENING: Has the patient had 2 falls in the last year or 1 fall with injury or currently using an Ambulatory Assistive Device (Walker, Cane, Wheelchair, Crutches, etc.)? Yes, Patient High Risk for Falls What interventions were put in place to prevent falls during this visit? Offered Assistance with Transfers/Clothing and Instructed Patient to Remain Seated (Not on Exam Table) Until Exam PATIENT GENDER DATA: Female. status: : No status: NO. PATIENT RELEVANT IMPLANT DATA REVIEWED: Not Applicable RADIOLOGY DEPARTMENT: General X-ray: Exam(s) Completed: Lower Extremity X-Ray(s): Foot, Left PERIPHERAL IV DATA: Not applicable SIGNED BY: RT Scott(R) March 09, 2023 11:32 AM [facility] 03-09-2023 Note HNO ID: [id number] Author: Sienna Saldivar MD Service: ? Author Type: Physician Type: Progress Notes Filed: 03/09/2023 11:45 AM Note Text: Chief Complaint Patient presents with: Pain (foot) HPI Mica Hart is a 77 year old female who presents here today for Above Complaints.. Patient complaining of left great toe pain and redness which started about 1 week ago. Had similar symptoms in her right foot the week before last. Treating with OTC tylenol and voltaren gel which does improve her pain slightly. Admits to drinking 7up recently. Denies fever/chills, fall/injury, bruising. Past medical history, appointments, medications, allergies reviewed. Previous Medical History PAST MEDICAL HISTORY Diagnosis Date Atrophic gastritis without mention of hemorrhage GASTRITIS CHRONIC ATROPHIC( W/O Hemorrhage) Benign neoplasm of colon CAD (coronary artery disease) s/p stent, Seeing Dr. Robertson Cataracts, bilateral CKD (chronic kidney disease) stage 3, GFR 30-59 ml/min ([facility]) left nephrectomy, [facility] Closed fracture of two ribs DDD (degenerative disc disease), lumbar Depression Diabetes ([facility]) diet controlled Diaphragmatic hernia without mention of obstruction or gangrene HIATAL HERNIA Diverticulosis of colon (without mention of hemorrhage) Diverticulosis Elevated uric acid in blood Hypothyroidism Irritable bowel syndrome Mitral valve disorders Morbid obesity (HCC) Myalgia and myositis, unspecified FIBROMYALGIA FELICITY (obstructive sleep apnea) 11/02/2021 Osteopenia Personal history of colonic polyps Renal cell carcinoma (HCC) 04/21/[address] Hawkins Unspecified essential hypertension Essential hypertension Unspecified gastritis and gastroduodenitis without mention of hemorrhage Urinary incontinence Previous Surgical History PAST SURGICAL HISTORY Procedure Laterality Date APPENDECTOMY 1977 ARTHRP KNE CONDYLEANDPLATU MEDIALANDLAT COMPARTMENTS 11/2008 Knee replacement, total left ARTHRP KNE CONDYLEANDPLATU MEDIALANDLAT COMPARTMENTS 08/2011 Knee replacement, total Rt CHOLECYSTECTOMY 1971 Cholecystectomy COLONOSCOPY FLX DX W/COLLJ SPEC WHEN PFRMD 2004 Colonoscopy with polypectomy COLONOSCOPY FLX DX W/COLLJ SPEC WHEN PFRMD 01/28/11 ESOPHAGOGASTRODUODENOSCOPY TRANSORAL DIAGNOSTIC 01/2005 EGD LAP NEPHRECTOMY Left 03/2016 renal cell carcinoma NEUROPLASTY AND/TRANSPOS MEDIAN NRV CARPAL TUNNE 06-24-05 Carpal tunnel decomp RIGHT PAST SURGICAL HISTORY OF GANGLION X2 LEFT WRIST PAST SURGICAL HISTORY OF 1989, 1966 PARTIAL THYROIDECTOMY X2 PAST SURGICAL HISTORY OF 1997 TMJ PAST SURGICAL HISTORY OF 09/2012 stent TONSILLECTOMY AND ADENOIDECTOMY TOTAL ABDOMINAL HYSTERECT W/WO RMVL TUBE OVARY Hysterectomy, [place]ORNA Family History FAMILY HISTORY Problem Relation Age of Onset Heart Mother Hypertension Mother Arthritis Mother other (dementia) Mother ? Cancer Father bladder Heart Father heart disease Cancer Brother throat Cancer Brother skin Heart Failure Maternal Grandmother No Known Problems Maternal Grandfather No Known Problems Paternal Grandmother No Known Problems Paternal Grandfather Patient Allergies ALLERGIES Allergen Reactions Sulfa (Sulfonamide * Intolerance blisters all over Tape [Other] Intolerance blisters Torecan [Thiethylpe* Mental Status Change Amitriptyline GI Upset Codeine GI Upset Motrin [Ibuprofen] GI Upset Penicillins Rash Tcn [Tetracyclines] Rash Voltaren [Diclofena* GI Upset Altace [Ramipril] Intolerance sweating Dyazide [Triamteren* GI Upset nausea Flurbiprofen GI Upset Iron GI Upset Morphine Vomiting profound nausea Prinivil [Lisinopri* Cough sweating,cough Vicodin [Hydrocodon* GI Upset Current Medications Current Outpatient Medications on File Prior to Visit Medication Sig losartan (COZAAR) 50 mg tablet Take 50 mg by mouth once daily. furosemide (LASIX) 20 mg tablet Take 1 tablet by mouth twice daily as needed (LE edema). oxybutynin ER (DITROPAN XL) 10 mg 24 hr tablet Take 1 tablet by mouth once daily. DULoxetine (CYMBALTA) 30 mg capsule Take 3 capsules by mouth once daily. CPAP Initiate Auto PAP @ 5-20 cm of water with humidification. Mask (per patient preference) optional chin strap (if indicated) , filters, tubing, humidifier and lifetime supplies. loperamide (IMODIUM) 2 mg cap(s) Take 1 capsule by mouth four times daily as needed. pravastatin (PRAVACHOL) 80 mg tablet Take 1 tablet by mouth once daily. buPROPion SR (ZYBAN SR; WELLBUTRIN SR) 150 mg 12 hr tablet Take 1 tablet by mouth twice daily. levothyroxine (SYNTHROID) 112 mcg tablet Take 1 tablet by mouth once daily. blood sugar diagnostic (BLOOD GLUCOSE TEST) test strip Test blood sugar(s) 1 times daily. Dx: Type 2 DM - Controlled E11.9 Insulin: No Lancets lancets Test blood sugar(s) 1 times daily. Dx: Type 2 DM - Controlled E11.9 Insulin: No Lancets (ACCU-CHEK (more content not included)... [facility] 01-03-2023 Note HNO ID: [id number] Author: RT Nora(R) Service: Radiology Author Type: Technologist Type: Progress Notes Filed: 01/03/2023 4:30 PM Note Text: Radiology Service Progress Note PATIENT NAME: Mica Hart DATE OF SERVICE: January 03, 2023 TIME: 4:13 PM PATIENT IDENTITY VERIFICATION COMPLETED USING TWO (2) IDENTIFIERS: Name and Date of confirmed by patient verbally. FALL SCREENING: Has the patient had 2 falls in the last year or 1 fall with injury or currently using an Ambulatory Assistive Device (Walker, Cane, Wheelchair, Crutches, etc.)? Yes, Patient High Risk for Falls What interventions were put in place to prevent falls during this visit? Instructed Patient to Call for Help if Needed, Offered Assistance with Transfers/Clothing, and Increased Observations by Caregivers PATIENT GENDER DATA: Female. status: : No status: NO. PATIENT RELEVANT IMPLANT DATA REVIEWED: Yes RADIOLOGY DEPARTMENT: General X-ray: Exam(s) Completed: Chest X-Ray PERIPHERAL IV DATA: Not applicable SIGNED BY: RT Nora(R) January 03, 2023 4:13 PM [facility] 01-03-2023 Note HNO ID: [id number] Author: Sienna Saldivar MD Service: ? Author Type: Physician Type: Progress Notes Filed: 01/03/2023 5:14 PM Note Text: Chief Complaint Patient presents with: Sinus Problem: Congestion x 2 weeks reported she was having fevers- last fever approx 48 hrs ago Cough: Chest congestion x 2 weeks HPI Mica Hart is a 77 year old female who presents here today for Above Complaints.. Patient states that about 2 weeks ago she developed fever up to 101, fatigue, productive cough, nasal congestion, maxillary sinus pressure, chest congestion, wheezing, SOB, headache, left ear fullness. Pushing PO fluids and taking tylenol OTC for her fever. Last dose of tylenol was last night. Last fever was 2 days ago. Denies chest pain, sore throat, lymphadenopathy, nausea, vomiting, diarrhea. sick with similar symptoms. Did not test for COVID. Symptoms improving with resolved fever, SOB, wheezing. Past medical history, appointments, medications, allergies reviewed. Previous Medical History PAST MEDICAL HISTORY Diagnosis Date Atrophic gastritis without mention of hemorrhage GASTRITIS CHRONIC ATROPHIC( W/O Hemorrhage) Benign neoplasm of colon CAD (coronary artery disease) s/p stent, Seeing Dr. Robertson Cataracts, bilateral CKD (chronic kidney disease) stage 3, GFR 30-59 ml/min (HCC) left nephrectomy, [facility] Closed fracture of two ribs DDD (degenerative disc disease), lumbar Depression Diabetes (HCC) diet controlled Diaphragmatic hernia without mention of obstruction or gangrene HIATAL HERNIA Diverticulosis of colon (without mention of hemorrhage) Diverticulosis Elevated uric acid in blood Hypothyroidism Irritable bowel syndrome Mitral valve disorders Morbid obesity (HCC) Myalgia and myositis, unspecified FIBROMYALGIA FELICITY (obstructive sleep apnea) 11/02/2021 Osteopenia Personal history of colonic polyps Renal cell carcinoma (HCC) 04/21/[address] Hawkins Unspecified essential hypertension Essential hypertension Unspecified gastritis and gastroduodenitis without mention of hemorrhage Urinary incontinence Previous Surgical History PAST SURGICAL HISTORY Procedure Laterality Date APPENDECTOMY 1977 ARTHRP KNE CONDYLEANDPLATU MEDIALANDLAT COMPARTMENTS 11/2008 Knee replacement, total left ARTHRP KNE CONDYLEANDPLATU MEDIALANDLAT COMPARTMENTS 08/2011 Knee replacement, total Rt CHOLECYSTECTOMY 1971 Cholecystectomy COLONOSCOPY FLX DX W/COLLJ SPEC WHEN PFRMD 2004 Colonoscopy with polypectomy COLONOSCOPY FLX DX W/COLLJ SPEC WHEN PFRMD 01/28/11 ESOPHAGOGASTRODUODENOSCOPY TRANSORAL DIAGNOSTIC 01/2005 EGD LAP NEPHRECTOMY Left 03/2016 renal cell carcinoma NEUROPLASTY AND/TRANSPOS MEDIAN NRV CARPAL TUNNE 06-24-05 Carpal tunnel decomp RIGHT PAST SURGICAL HISTORY OF GANGLION X2 LEFT WRIST PAST SURGICAL HISTORY OF 1989, 1966 PARTIAL THYROIDECTOMY X2 PAST SURGICAL HISTORY OF 1997 TMJ PAST SURGICAL HISTORY OF 09/2012 stent TONSILLECTOMY AND ADENOIDECTOMY TOTAL ABDOMINAL HYSTERECT W/WO RMVL TUBE OVARY Hysterectomy, LORNA Family History FAMILY HISTORY Problem Relation Age of Onset Heart Mother Hypertension Mother Arthritis Mother other (dementia) Mother ? Cancer Father bladder Heart Father heart disease Cancer Brother throat Cancer Brother skin Heart Failure Maternal Grandmother No Known Problems Maternal Grandfather No Known Problems Paternal Grandmother No Known Problems Paternal Grandfather Patient Allergies ALLERGIES Allergen Reactions Sulfa (Sulfonamide * Intolerance blisters all over Tape [Other] Intolerance blisters Torecan [Thiethylpe* Mental Status Change Amitriptyline GI Upset Codeine GI Upset Motrin [Ibuprofen] GI Upset Penicillins Rash Tcn [Tetracyclines] Rash Voltaren [Diclofena* GI Upset Altace [Ramipril] Intolerance sweating Dyazide [Triamteren* GI Upset nausea Flurbiprofen GI Upset Iron GI Upset Morphine Vomiting profound nausea Prinivil [Lisinopri* Cough sweating,cough Vicodin [Hydrocodon* GI Upset Current Medications Current Outpatient Medications on File Prior to Visit Medication Sig losartan (COZAAR) 50 mg tablet Take 50 mg by mouth once daily. furosemide (LASIX) 20 mg tablet Take 1 tablet by mouth twice daily as needed (LE edema). oxybutynin ER (DITROPAN XL) 10 mg 24 hr tablet Take 1 tablet by mouth once daily. DULoxetine (CYMBALTA) 30 mg capsule Take 3 capsules by mouth once daily. CPAP Initiate Auto PAP @ 5-20 cm of water with humidification. Mask (per patient preference) optional chin strap (if indicated) , filters, tubing, humidifier and lifetime supplies. loperamide (IMODIUM) 2 mg cap(s) Take 1 capsule by mouth four times daily as needed. pravastatin (PRAVACHOL) 80 mg tablet Take 1 tablet by mouth once daily. buPROPion SR (ZYBAN SR; WELLBUTRIN SR) 150 mg 12 hr tablet Take 1 tablet by mouth twice daily. lev (more content not included)... [facility] 12-01-2022 Miscellaneous Notes Patient calls and notified of results and providers instructions. Patient verbalizes understanding. Patient scheduled for Potassium Blood draw on Tuesday12/03/22 per patient request. Ramona Lehman RN Left message for patient contact office to inform of below. Marlene Mcleod MA Diabetes well controlled with A1c of 6. Kidney function stable in CKD stage IIIa range. Potassium level was slightly high. This may be lab error or possibly related to medications. Would recommend rechecking levels in the next 2-3 days. Other labs unremarkable. documented in this encounter [facility] 11-29-2022 Note HNO ID: [id number] Author: Sienna Saldivar MD Service: ? Author Type: Physician Type: Progress Notes Filed: 12/05/2022 11:56 AM Note Text: Chief Complaint Patient presents with: Follow Up HPI Mica Hart is a 77 year old female who presents here today for routine follow up. Patient notes that she is using her walker for ambulation and feels like she is having harder time balancing. No falls. Will consider referral to physical therapy. States that she stopped taking her amlodipine due to possible side effect of leg swelling. Swelling did improve with cessation of this medication. BP in good range despite cessation. FELICITY: patient is compliant with her CPAP on a nightly basis, but does not always wake up with it on. Gets up to use the restroom about 1-2 times per night and doesn't always per her mask back on. States that she still has daytime somnolence. Fibromyalgia and depression symptoms improved with Cymbalta. DM: Last A1c in good range at 6.1. Checking sugars fasting with readings <130. Due for repeat labs. CAD: No new symptoms on current regimen. Still complaining of SOB with exertion which was worked up last year and cardiology felt this was due to weight, age, and deconditioning. Has f/u appointment with Dr. Robertson in June. Requesting referral to see cardiology here in [place]. Past medical history, appointments, medications, allergies reviewed. Previous Medical History PAST MEDICAL HISTORY Diagnosis Date Atrophic gastritis without mention of hemorrhage GASTRITIS CHRONIC ATROPHIC( W/O Hemorrhage) Benign neoplasm of colon CAD (coronary artery disease) s/p stent, Seeing Dr. Robertson Cataracts, bilateral CKD (chronic kidney disease) stage 3, GFR 30-59 ml/min ([facility]) left nephrectomy, [facility] Closed fracture of two ribs DDD (degenerative disc disease), lumbar Depression Diabetes (HCC) diet controlled Diaphragmatic hernia without mention of obstruction or gangrene HIATAL HERNIA Diverticulosis of colon (without mention of hemorrhage) Diverticulosis Elevated uric acid in blood Hypothyroidism Irritable bowel syndrome Mitral valve disorders Morbid obesity ([facility]) Myalgia and myositis, unspecified FIBROMYALGIA FELICITY (obstructive sleep apnea) 11/02/2021 Osteopenia Personal history of colonic polyps Renal cell carcinoma (HCC) 04/21/[address] Hawkins Unspecified essential hypertension Essential hypertension Unspecified gastritis and gastroduodenitis without mention of hemorrhage Urinary incontinence Previous Surgical History PAST SURGICAL HISTORY Procedure Laterality Date APPENDECTOMY 1977 ARTHRP KNE CONDYLEANDPLATU MEDIALANDLAT COMPARTMENTS 11/2008 Knee replacement, total left ARTHRP KNE CONDYLEANDPLATU MEDIALANDLAT COMPARTMENTS 08/2011 Knee replacement, total Rt CHOLECYSTECTOMY 1971 Cholecystectomy COLONOSCOPY FLX DX W/COLLJ SPEC WHEN PFRMD 2004 Colonoscopy with polypectomy COLONOSCOPY FLX DX W/COLLJ SPEC WHEN PFRMD 01/28/11 ESOPHAGOGASTRODUODENOSCOPY TRANSORAL DIAGNOSTIC 01/2005 EGD LAP NEPHRECTOMY Left 03/2016 renal cell carcinoma NEUROPLASTY AND/TRANSPOS MEDIAN NRV CARPAL TUNNE 06-24-05 Carpal tunnel decomp RIGHT PAST SURGICAL HISTORY OF GANGLION X2 LEFT WRIST PAST SURGICAL HISTORY OF 1989, 1966 PARTIAL THYROIDECTOMY X2 PAST SURGICAL HISTORY OF 1997 TMJ PAST SURGICAL HISTORY OF 09/2012 stent TONSILLECTOMY AND ADENOIDECTOMY TOTAL ABDOMINAL HYSTERECT W/WO RMVL TUBE OVARY Hysterectomy, LORNA Family History FAMILY HISTORY Problem Relation Age of Onset Heart Mother Hypertension Mother Arthritis Mother other (dementia) Mother ? Cancer Father bladder Heart Father heart disease Cancer Brother throat Cancer Brother skin Heart Failure Maternal Grandmother No Known Problems Maternal Grandfather No Known Problems Paternal Grandmother No Known Problems Paternal Grandfather Patient Allergies ALLERGIES Allergen Reactions Sulfa (Sulfonamide * Intolerance blisters all over Tape [Other] Intolerance blisters Torecan [Thiethylpe* Mental Status Change Amitriptyline GI Upset Codeine GI Upset Motrin [Ibuprofen] GI Upset Penicillins Rash Tcn [Tetracyclines] Rash Voltaren [Diclofena* GI Upset Altace [Ramipril] Intolerance sweating Dyazide [Triamteren* GI Upset nausea Flurbiprofen GI Upset Iron GI Upset Morphine Vomiting profound nausea Prinivil [Lisinopri* Cough sweating,cough Vicodin [Hydrocodon* GI Upset Current Medications Current Outpatient Medications on File Prior to Visit Medication Sig furosemide (LASIX) 20 mg tablet Take 1 tablet by mouth twice daily as needed (LE edema). oxybutynin ER (DITROPAN XL) 10 mg 24 hr tablet Take 1 tablet by mouth once daily. loperamide (IMODIUM) 2 mg cap(s) Take 1 capsule by mouth four times daily as needed. pravastatin (PRAVACHOL) 80 mg tablet Take 1 tablet by mouth once daily. buPROPion SR (ZYBA (more content not included)... [facility] 11-29-2022 Instructions Sienna Saldivar MD - 11/29/2022 11:14 AM EDT Call for high blood pressure over 130/80. documented in this encounter [facility] 11-29-2022 History of Presen t illness Narrative Chief Complaint Patient presents with: Follow Up HPI Mica Hart is a 77 year old female who presents here today for routine follow up. Patient notes that she is using her walker for ambulation and feels like she is having harder time balancing. No falls. Will consider referral to physical therapy. States that she stopped taking her amlodipine due to possible side effect of leg swelling. Swelling did improve with cessation of this medication. BP in good range despite cessation. FELICITY: patient is compliant with her CPAP on a nightly basis, but does not always wake up with it on. Gets up to use the restroom about 1-2 times per night and doesn't always per her mask back on. States that she still has daytime somnolence. Fibromyalgia and depression symptoms improved with Cymbalta. DM: Last A1c in good range at 6.1. Checking sugars fasting with readings <130. Due for repeat labs. CAD: No new symptoms on current regimen. Still complaining of SOB with exertion which was worked up last year and cardiology felt this was due to weight, age, and deconditioning. Has f/u appointment with Dr. Robertson in June. Requesting referral to see cardiology here in . Past medical history, appointments, medications, allergies reviewed. Previous Medical History PAST MEDICAL HISTORY Diagnosis Date Atrophic gastritis without mention of hemorrhage GASTRITIS CHRONIC ATROPHIC( W/O Hemorrhage) Benign neoplasm of colon CAD (coronary artery disease) s/p stent, Seeing Dr. Robertson Cataracts, bilateral CKD (chronic kidney disease) stage 3, GFR 30-59 ml/min ([facility]) left nephrectomy, [facility] Closed fracture of two ribs DDD (degenerative disc disease), lumbar Depression Diabetes ([facility]) diet controlled Diaphragmatic hernia without mention of obstruction or gangrene HIATAL HERNIA Diverticulosis of colon (without mention of hemorrhage) Diverticulosis Elevated uric acid in blood Hypothyroidism Irritable bowel syndrome Mitral valve disorders Morbid obesity ([facility]) Myalgia and myositis, unspecified FIBROMYALGIA FELICITY (obstructive sleep apnea) 11/02/2021 Osteopenia Personal history of colonic polyps Renal cell carcinoma (HCC) 04/21/[address] Hawkins Unspecified essential hypertension Essential hypertension Unspecified gastritis and gastroduodenitis without mention of hemorrhage Urinary incontinence Previous Surgical History PAST SURGICAL HISTORY Procedure Laterality Date APPENDECTOMY 1977 ARTHRP KNE CONDYLE&PLATU MEDIAL&LAT COMPARTMENTS 11/2008 Knee replacement, total left ARTHRP KNE CONDYLE&PLATU MEDIAL&LAT COMPARTMENTS 08/2011 Knee replacement, total Rt CHOLECYSTECTOMY 1971 Cholecystectomy COLONOSCOPY FLX DX W/COLLJ SPEC WHEN PFRMD 2004 Colonoscopy with polypectomy COLONOSCOPY FLX DX W/COLLJ SPEC WHEN PFRMD 01/28/11 ESOPHAGOGASTRODUODENOSCOPY TRANSORAL DIAGNOSTIC 01/2005 EGD LAP NEPHRECTOMY Left 03/2016 renal cell carcinoma NEUROPLASTY &/TRANSPOS MEDIAN NRV CARPAL TUNNE 06-24-05 Carpal tunnel decomp RIGHT PAST SURGICAL HISTORY OF GANGLION X2 LEFT WRIST PAST SURGICAL HISTORY OF 1989, 1966 PARTIAL THYROIDECTOMY X2 PAST SURGICAL HISTORY OF 1997 TMJ PAST SURGICAL HISTORY OF 09/2012 stent TONSILLECTOMY & ADENOIDECTOMY <AGE 13 TOTAL ABDOMINAL HYSTERECT W/WO RMVL TUBE OVARY Hysterectomy, LORNA Family History FAMILY HISTORY Problem Relation Age of Onset Heart Mother Hypertension Mother Arthritis Mother other (dementia) Mother ? Cancer Father bladder Heart Father heart disease Cancer Brother throat Cancer Brother skin Heart Failure Maternal Grandmother No Known Problems Maternal Grandfather No Known Problems Paternal Grandmother No Known Problems Paternal Grandfather Patient Allergies ALLERGIES Allergen Reactions Sulfa (Sulfonamide * Intolerance blisters all over Tape [Other] Intolerance blisters Torecan [Thiethylpe* Mental Status Change Amitriptyline GI Upset Codeine GI Upset Motrin [Ibuprofen] GI Upset Penicillins Rash Tcn [Tetracyclines] Rash Voltaren [Diclofena* GI Upset Altace [Ramipril] Intolerance sweating Dyazide [Triamteren* GI Upset nausea Flurbiprofen GI Upset Iron GI Upset Morphine Vomiting profound nausea Prinivil [Lisinopri* Cough sweating,cough Vicodin [Hydrocodon* GI Upset Current Medications Current Outpatient Medications on File Prior to Visit Medication Sig furosemide (LASIX) 20 mg tablet Take 1 tablet by mouth twice daily as needed (LE edema). oxybutynin ER (DITROPAN XL) 10 mg 24 hr tablet Take 1 tablet by mouth once daily. loperamide (IMODIUM) 2 mg cap(s) Take 1 capsule by mouth four times daily as needed. pravastatin (PRAVACHOL) 80 mg tablet Take 1 tablet by mouth once daily. buPROPion SR (ZYBAN SR; WELLBUTRIN SR) 150 mg 12 hr tablet Take 1 tablet by mouth twice daily. levothyroxine (SYNTHROID) 112 mcg tablet Take 1 tablet by mouth once daily. aluminum-magnesium hydroxide-simethicone (MAALOX,MYLANTA,MAG-AL PLUS) 200-200-20 mg/5 mL suspension Take 30 mL by mouth every 6 hours as needed (GI upset). nystatin (MYCOSTATIN) powder Apply 1 application to affected area twice daily. furosemide (LASIX) 20 mg tablet Take 1 tablet by mouth twice daily as needed (LE edema). DULoxetine (CYMBALTA) 30 mg capsule Take 3 capsules by mouth once daily. irbesartan (AVAPRO) 300 mg tablet Take 1 tablet by mouth once daily. (Patient not taking: No sig reported) amLODIPine (NORVASC) 2.5 mg tablet Take 1 tablet by mouth once daily. CPAP Initiate Auto PAP @ 5-20 cm of water with humidification. Mask (per patient preference) optional chin strap (if indicated) , filters, tubing, humidifier and lifetime supplies. blood sugar diagnostic (BLOOD GLUCOSE TEST) test strip Test blood sugar(s) 1 times daily. Dx: Type 2 DM - Controlled E11.9 Insulin: No Lancets lancets Test blood sugar(s) 1 times daily. Dx: Type 2 DM - Controlled E11.9 Insulin: No Lancets (ACCU-CHEK SOFTCLIX LANCETS) lancets Test blood sugar(s) 1 times daily. Dx: Type 2 DM - Controlled E11.9 Insulin: No No current facility-administered medications on file prior to visit. Social History Social History Tobacco Use Smoking status: Former Packs/day: 1.00 Years: 1.00 Pack years: 1.00 Types: Cigarettes Quit date: 07/01/1975 Years since quittin.4 Smokeless tobacco: Never Vaping Use Vaping Use: Never used Substance Use Topics Alcohol use: No Drug use: No Review of Symptoms REVIEW OF SYSTEMS GENERAL: No weight loss, malaise or fevers RESPIRATORY: See HPI CARDIOVASCULAR: Negative for chest pain, leg swelling, hypertension, CHF or palpitations GI: No nausea, vomiting, or diarrhea SKIN: Negative for lesions, rash, and itching EXAM: BP 126/80 Pulse (!) 55 Resp 18 Wt 127.9 kg (282 lb) SpO2 96% BMI 49.95 kg/m General Appearance: Well appearing, alert, in no acute distress, well-hydrated, well nourished. Morbidly obese. Skin: Skin color, texture, turgor normal, no suspicious rashes or lesions. Lungs: Lungs clear to auscultation. No wheezing, rhonchi, rales.. Heart: RRR without murmur, gallop, or rubs. No ectopy. Abdomen: Normal abdominal exam, Abdomen soft, non-tender. Bowel sounds normal. No masses, organomegaly. Extremities: No deformities, edema, skin discoloration, clubbing or cyanosis. Good capillary refill. . Health Maintenance List BP CONTROLLED (<130/80) Never done DILATED RETINAL EXAM due on 02/20/2021 ADVANCE DIRECTIVE DISCUSSION Never done HBA1C due on 11/22/2022 URINE ALBUMIN:CREATININE RATIO due on 04/29/2023 LDL CHOLESTEROL due on 04/29/2023 HEMOGLOBIN/HEMATOCRIT due on 05/24/2023 DIABETIC FOOT EXAM due on 06/25/2023 ANNUAL PCP TEAM CHRONIC DISEASE VISIT due on 06/25/2023 DTAP,TDAP,TD(3 - Tdap) due on 07/11/2023 SERUM CREATININE due on 11/26/2023 BONE DENSITY Completed INFLUENZA Completed HEPATITIS C SCREENING Completed SHINGRIX VACCINE Completed COVID-19 VACCINE Completed PNEUMOCOCCAL: 65+ Completed Data reviewed Component Latest Ref Rng & Units 05/24/2022 06/25/2022 11/25/2022 Protein, Total 6.3 - 8.0 g/dL 6.9 Albumin 3.9 - 4.9 g/dL 4.2 Calcium 8.5 - 10.2 mg/dL 9.7 10.0 Bilirubin, Total 0.2 - 1.3 mg/dL 0.6 Alkaline Phosphatase 34 - 123 U/L 96 AST 13 - 35 U/L 27 ALT 7 - 38 U/L 28 Glucose 74 - 99 mg/dL 102 (H) 141 (H) BUN 7 - 21 mg/dL 15 19 Creatinine 0.58 - 0.96 mg/dL 1.17 (H) 1.36 (H) 1.27 (H) Sodium 136 - 144 mmol/L 139 139 Potassium 3.7 - 5.1 mmol/L 4.5 4.3 Chloride 97 - 105 mmol/L 107 (H) 105 CO2 22 - 30 mmol/L 21 (L) 20 (L) Anion Gap 9 - 18 mmol/L 11 14 eGFR >=60 mL/min/1.73m 49 (L) 41 (L) 44 (L) WBC 3.70 - 11.00 k/uL 6.73 RBC 3.90 - 5.20 m/uL 4.42 Hemoglobin 11.5 - 15.5 g/dL 13.3 Hematocrit 36.0 - 46.0 % 42.2 MCV 80.0 - 100.0 fL 95.5 MCH 26.0 - 34.0 pg 30.1 MCHC 30.5 - 36.0 g/dL 31.5 RDW-CV 11.5 - 15.0 % 13.7 Platelet Count 150 - 400 k/uL 160 MPV 9.0 - 12.7 fL 12.0 Absolute nRBC <0.01 k/uL <0.01 Hemoglobin A1C 4.3 - 5.6 % 6.1 (H) Estimated Average Glucose mg/dL 128 NT Pro BNP <450 pg/mL 215 Component Latest Ref Rng & Units 04/29/2022 Cholesterol, Total <200 mg/dL 187 Triglyceride <150 mg/dL 169 (H) HDL Cholesterol >39 mg/dL 44 Non HDL Cholesterol <130 mg/dL 143 (H) Fasting Time hrs 12 VLDL Cholesterol <30 mg/dL 34 (H) TC:HDL Ratio <5.10 4.25 LDL Cholesterol <100 mg/dL 109 (H) LDL:HDL Ratio <2.54 2.48 Component Latest Ref Rng & Units 05/07/2021 TSH 0.270 - 4.200 uU/mL 1.580 ASSESSMENT/PLAN: 1. Age-related physical debility - ICD9: 797, ICD10: R54 (primary diagnosis) Refer to PT for evaluation and treatment continue cane/walker for ambulation. - CONSULT TO PHYSICAL THERAPY 2. At high risk for falls - ICD9: V15.88, ICD10: Z91.81 - CONSULT TO PHYSICAL THERAPY 3. Type 2 DM with CKD stage 3 and hypertension (HCC) - ICD9: 250.40, 403.90, 585.3, ICD10: E11.22, I12.9, N18.30 - good control - Continue current medication(s) - Encouraged dietary sodium restriction/DASH diet - Recommended regular aerobic exercise. - Reviewed risks of HTN and principles of treatment - Goal of BP <140/90 - Controlled - Continue current medications - Blood glucose monitoring on a once daily schedule - Counseled on healthy diet and regular exercise - Discussed need for and benefit of weight loss. BMI 49.95 kg/(m^2) - Discussed diabetic education issues of diabetes complications and monitoring required, hypoglycemic/hyperglycemic symptoms, medication-specific side effects and monitoring, and diabetic sick day rules - Follow up in 3 months, sooner should any other issues arise. - eGFR: Stable - Counseled on avoiding regular use of NSAIDs, adequate hydration, potential risk of IV dye - Recommend maintaining A1c < 7% - Counseled on renal diet (low sodium/low potassium/low phosphorus) - Medications reviewed and renally adjusted - Follow up with nephrology - HGB A1C - COMP METABOLIC PANEL - CBC + DIFF 4. Essential hypertension - ICD9: 401.9, ICD10: I10 5. Mixed hyperlipidemia - ICD9: 272.2, ICD10: E78.2 - suboptimal control - Continue current medication. - Encouraged following a low fat, low cholesterol diet. - Discussed the benefits of regular aerobic exercise and weight loss. 6. Coronary artery disease involving [place] heart without angina pectoris, unspecified vessel or lesion type - ICD9: 414.01, ICD10: I25.10 Asymptomatic on medical management. Recommendations per cardiology. - CONSULT TO CARDIOLOGY 7. S/P coronary artery stent placement - ICD9: V45.82, ICD10: Z95.5 8. Renal cell carcinoma of left kidney (HCC) - ICD9: 189.0, ICD10: C64.2 S/p nephrectomy. Monitoring renal function. F/u with nephrology in [facility]. 9. Single kidney - ICD9: V45.73, ICD10: Z90.5 10. Stage 3b chronic kidney disease (HCC) - ICD9: 585.3, ICD10: N18.32 11. Moderate episode of recurrent major depressive disorder (HCC) - ICD9: 296.32, ICD10: F33.1 Controlled on SNRI. 12. FELICITY (obstructive sleep apnea) - ICD9: 327.23, ICD10: G47.33 Controlled on CPAP 13. Acquired hypothyroidism - ICD9: 244.9, ICD10: E03.9 Asymptomatic on current regimen. Recheck TSH prior to next OV. 14. Morbid obesity with body mass index (BMI) of 45.0 to 49.9 in adult (HCC) - ICD9: 278.01, V85.42, ICD10: E66.01, Z68.42 Stable - Behavioral intervention Sienna Saldivar MD documented in this encounter [facility] 11-26-2022 Note HNO ID: [id number] Author: Ny Carlton PA-C Service: ? Author Type: Physician Surface Water Technician Type: Progress Notes Filed: 11/26/2022 4:54 PM Note Text: [facility] ESTABLISHED PATIENT CLINIC NOTE Some elements copied from his previous note, which have been updated where appropriate, and all reflect current medical decision making from date of this visit. SERVICE DATE: 11/26/2022 SERVICE TIME: 2:06 PM NAME: Mica Hart CHIEF COMPLAINT: RCC follow up HISTORY OF PRESENT ILLNESS: Mica Hart is a 77 year old female an established patient following up for annual RCC follow-up with her imaging All look great stil no recurrence in solitary kidney LUTS: Other symptoms: LABS: Hematocrit (%) Date Value 05/24/2022 42.2 05/07/2021 45.7 02/03/2021 45.1 10/05/2019 44.1 04/06/2019 44.1 No results found for: PSA No results found for: TESTOST No results found for: PSA Creatinine Date Value Ref Range Status 11/25/2022 1.27 (H) 0.58 - 0.96 mg/dL Final 06/25/2022 1.36 (H) 0.58 - 0.96 mg/dL Final 05/24/2022 1.17 (H) 0.58 - 0.96 mg/dL Final 04/29/2022 1.13 (H) 0.58 - 0.96 mg/dL Final MEDICATIONS: furosemide (LASIX) 20 mg tablet Take 1 tablet by mouth twice daily as needed (LE edema). furosemide (LASIX) 20 mg tablet Take 1 tablet by mouth twice daily as needed (LE edema). oxybutynin ER (DITROPAN XL) 10 mg 24 hr tablet Take 1 tablet by mouth once daily. DULoxetine (CYMBALTA) 30 mg capsule Take 3 capsules by mouth once daily. amLODIPine (NORVASC) 2.5 mg tablet Take 1 tablet by mouth once daily. CPAP Initiate Auto PAP @ 5-20 cm of water with humidification. Mask (per patient preference) optional chin strap (if indicated) , filters, tubing, humidifier and lifetime supplies. loperamide (IMODIUM) 2 mg cap(s) Take 1 capsule by mouth four times daily as needed. pravastatin (PRAVACHOL) 80 mg tablet Take 1 tablet by mouth once daily. buPROPion SR (ZYBAN SR; WELLBUTRIN SR) 150 mg 12 hr tablet Take 1 tablet by mouth twice daily. levothyroxine (SYNTHROID) 112 mcg tablet Take 1 tablet by mouth once daily. blood sugar diagnostic (BLOOD GLUCOSE TEST) test strip Test blood sugar(s) 1 times daily. Dx: Type 2 DM - Controlled E11.9 Insulin: No Lancets lancets Test blood sugar(s) 1 times daily. Dx: Type 2 DM - Controlled E11.9 Insulin: No aluminum-magnesium hydroxide-simethicone (MAALOX,MYLANTA,MAG-AL PLUS) 200-200-20 mg/5 mL suspension Take 30 mL by mouth every 6 hours as needed (GI upset). nystatin (MYCOSTATIN) powder Apply 1 application to affected area twice daily. irbesartan (AVAPRO) 300 mg tablet Take 1 tablet by mouth once daily. (Patient not taking: Reported on 11/26/2022) Lancets (ACCU-CHEK SOFTCLIX LANCETS) lancets Test blood sugar(s) 1 times daily. Dx: Type 2 DM - Controlled E11.9 Insulin: No PAST MEDICAL HISTORY: PAST MEDICAL HISTORY Diagnosis Date Atrophic gastritis without mention of hemorrhage GASTRITIS CHRONIC ATROPHIC( W/O Hemorrhage) Benign neoplasm of colon CAD (coronary artery disease) s/p stent, Seeing Dr. Robertson Cataracts, bilateral CKD (chronic kidney disease) stage 3, GFR 30-59 ml/min (HCC) left nephrectomy, [facility] Closed fracture of two ribs DDD (degenerative disc disease), lumbar Depression Diabetes (HCC) diet controlled Diaphragmatic hernia without mention of obstruction or gangrene HIATAL HERNIA Diverticulosis of colon (without mention of hemorrhage) Diverticulosis Elevated uric acid in blood Hypothyroidism Irritable bowel syndrome Mitral valve disorders Morbid obesity (HCC) Myalgia and myositis, unspecified FIBROMYALGIA FELICITY (obstructive sleep apnea) 11/02/2021 Osteopenia Personal history of colonic polyps Renal cell carcinoma (HCC) 04/21/[address] Hawkins Unspecified essential hypertension Essential hypertension Unspecified gastritis and gastroduodenitis without mention of hemorrhage Urinary incontinence PAST SURGICAL HISTORY: PAST SURGICAL HISTORY Procedure Laterality Date APPENDECTOMY 1977 ARTHRP KNE CONDYLEANDPLATU MEDIALANDLAT COMPARTMENTS 11/2008 Knee replacement, total left ARTHRP KNE CONDYLEANDPLATU MEDIALANDLAT COMPARTMENTS 08/2011 Knee replacement, total Rt CHOLECYSTECTOMY 1971 Cholecystectomy COLONOSCOPY FLX DX W/COLLJ SPEC WHEN PFRMD 2004 Colonoscopy with polypectomy COLONOSCOPY FLX DX W/COLLJ SPEC WHEN PFRMD 01/28/11 ESOPHAGOGASTRODUODENOSCOPY TRANSORAL DIAGNOSTIC 01/2005 EGD LAP NEPHRECTOMY Left 03/2016 renal cell carcinoma NEUROPLASTY AND/TRANSPOS MEDIAN NRV CARPAL TUNNE 06-24-05 Carpal tunnel decomp RIGHT PAST SURGICAL HISTORY OF GANGLION X2 LEFT WRIST PAST SURGICAL HISTORY OF 1989, 1966 PARTIAL THYROIDECTOMY X2 PAST SURGICAL HISTORY OF 1997 TMJ PAST SURGICAL HISTORY OF 09/2012 stent TONSILLECTOMY AND ADENOIDECTOMY TOTAL ABDOMINAL HYSTERECT W/WO RMVL TUBE OVARY Hyster (more content not included)... [facility] 11-26-2022 Instructions Ny Carlton PA-C - 11/26/2022 2:10 PM EDT > 1 year Appt w/ B. MARQUEZ Carlton, SHAQUILLE MORRIS for annual follow-up and imaging prior documented in this encounter [facility] 11-26-2022 History of Presen t illness Narrative Images from the original note were not included. [facility] ESTABLISHED PATIENT CLINIC NOTE Some elements copied from his previous note, which have been updated where appropriate, and all reflect current medical decision making from date of this visit. SERVICE DATE: 11/26/2022 SERVICE TIME: 2:06 PM NAME: Mica Hart CHIEF COMPLAINT: RCC follow up HISTORY OF PRESENT ILLNESS: Mica Hart is a 77 year old female an established patient following up for annual RCC follow-up with her imaging All look great stil no recurrence in solitary kidney LUTS: Other symptoms: LABS: Hematocrit (%) Date Value 05/24/2022 42.2 05/07/2021 45.7 02/03/2021 45.1 10/05/2019 44.1 04/06/2019 44.1 No results found for: PSA No results found for: TESTOST No results found for: PSA Creatinine Date Value Ref Range Status 11/25/2022 1.27 (H) 0.58 - 0.96 mg/dL Final 06/25/2022 1.36 (H) 0.58 - 0.96 mg/dL Final 05/24/2022 1.17 (H) 0.58 - 0.96 mg/dL Final 04/29/2022 1.13 (H) 0.58 - 0.96 mg/dL Final MEDICATIONS: furosemide (LASIX) 20 mg tablet Take 1 tablet by mouth twice daily as needed (LE edema). furosemide (LASIX) 20 mg tablet Take 1 tablet by mouth twice daily as needed (LE edema). oxybutynin ER (DITROPAN XL) 10 mg 24 hr tablet Take 1 tablet by mouth once daily. DULoxetine (CYMBALTA) 30 mg capsule Take 3 capsules by mouth once daily. amLODIPine (NORVASC) 2.5 mg tablet Take 1 tablet by mouth once daily. CPAP Initiate Auto PAP @ 5-20 cm of water with humidification. Mask (per patient preference) optional chin strap (if indicated) , filters, tubing, humidifier and lifetime supplies. loperamide (IMODIUM) 2 mg cap(s) Take 1 capsule by mouth four times daily as needed. pravastatin (PRAVACHOL) 80 mg tablet Take 1 tablet by mouth once daily. buPROPion SR (ZYBAN SR; WELLBUTRIN SR) 150 mg 12 hr tablet Take 1 tablet by mouth twice daily. levothyroxine (SYNTHROID) 112 mcg tablet Take 1 tablet by mouth once daily. blood sugar diagnostic (BLOOD GLUCOSE TEST) test strip Test blood sugar(s) 1 times daily. Dx: Type 2 DM - Controlled E11.9 Insulin: No Lancets lancets Test blood sugar(s) 1 times daily. Dx: Type 2 DM - Controlled E11.9 Insulin: No aluminum-magnesium hydroxide-simethicone (MAALOX,MYLANTA,MAG-AL PLUS) 200-200-20 mg/5 mL suspension Take 30 mL by mouth every 6 hours as needed (GI upset). nystatin (MYCOSTATIN) powder Apply 1 application to affected area twice daily. irbesartan (AVAPRO) 300 mg tablet Take 1 tablet by mouth once daily. (Patient not taking: Reported on 11/26/2022) Lancets (ACCU-CHEK SOFTCLIX LANCETS) lancets Test blood sugar(s) 1 times daily. Dx: Type 2 DM - Controlled E11.9 Insulin: No PAST MEDICAL HISTORY: PAST MEDICAL HISTORY Diagnosis Date Atrophic gastritis without mention of hemorrhage GASTRITIS CHRONIC ATROPHIC( W/O Hemorrhage) Benign neoplasm of colon CAD (coronary artery disease) s/p stent, Seeing Dr. Robertson Cataracts, bilateral CKD (chronic kidney disease) stage 3, GFR 30-59 ml/min (HCC) left nephrectomy, [facility] Closed fracture of two ribs DDD (degenerative disc disease), lumbar Depression Diabetes (HCC) diet controlled Diaphragmatic hernia without mention of obstruction or gangrene HIATAL HERNIA Diverticulosis of colon (without mention of hemorrhage) Diverticulosis Elevated uric acid in blood Hypothyroidism Irritable bowel syndrome Mitral valve disorders Morbid obesity (HCC) Myalgia and myositis, unspecified FIBROMYALGIA FELICITY (obstructive sleep apnea) 11/02/2021 Osteopenia Personal history of colonic polyps Renal cell carcinoma (HCC) 04/21/[address] Hawkins Unspecified essential hypertension Essential hypertension Unspecified gastritis and gastroduodenitis without mention of hemorrhage Urinary incontinence PAST SURGICAL HISTORY: PAST SURGICAL HISTORY Procedure Laterality Date APPENDECTOMY 1977 ARTHRP KNE CONDYLE&PLATU MEDIAL&LAT COMPARTMENTS 11/2008 Knee replacement, total left ARTHRP KNE CONDYLE&PLATU MEDIAL&LAT COMPARTMENTS 08/2011 Knee replacement, total Rt CHOLECYSTECTOMY 1971 Cholecystectomy COLONOSCOPY FLX DX W/COLLJ SPEC WHEN PFRMD 2004 Colonoscopy with polypectomy COLONOSCOPY FLX DX W/COLLJ SPEC WHEN PFRMD 01/28/11 ESOPHAGOGASTRODUODENOSCOPY TRANSORAL DIAGNOSTIC 01/2005 EGD LAP NEPHRECTOMY Left 03/2016 renal cell carcinoma NEUROPLASTY &/TRANSPOS MEDIAN NRV CARPAL TUNNE 06-24-05 Carpal tunnel decomp RIGHT PAST SURGICAL HISTORY OF GANGLION X2 LEFT WRIST PAST SURGICAL HISTORY OF 1989, 1966 PARTIAL THYROIDECTOMY X2 PAST SURGICAL HISTORY OF 1997 TMJ PAST SURGICAL HISTORY OF 09/2012 stent TONSILLECTOMY & ADENOIDECTOMY <AGE 13 TOTAL ABDOMINAL HYSTERECT W/WO RMVL TUBE OVARY Hysterectomy, [place] FAMILY HISTORY: FAMILY HISTORY Problem Relation Age of Onset Heart Mother Hypertension Mother Arthritis Mother other (dementia) Mother ? Cancer Father bladder Heart Father heart disease Cancer Brother throat Cancer Brother skin Heart Failure Maternal Grandmother No Known Problems Maternal Grandfather No Known Problems Paternal Grandmother No Known Problems Paternal Grandfather SOCIAL HISTORY: Social Connections: Not on file REVIEW OF SYSTEMS: GENERAL: No fever, chills, weight loss, or fatigue. All other systems reviewed and are negative PHYSICAL EXAMINATION: Blood pressure 140/80, pulse 60, weight 127.5 kg (281 lb), SpO2 98 %. GENERAL: WNL nutrition, no deformities, healthy appearing PROBLEM LIST REVIEW: Yes LABS: Results for orders placed or performed in visit on 11/25/22 CREATININE BLD Result Value Ref Range Creatinine 1.27 (H) 0.58 - 0.96 mg/dL Estimated Glomerular Filtration Rate 44 (L) >=60 mL/min/1.73m PROCEDURES: IMAGING: CXR- ASHLEY Renal US - ASHLEY IMPRESSION/PLAN: 77 year old female with 1. Renal cell carcinoma, unspecified laterality (HCC) - ICD9: 189.0, ICD10: C64.9 (primary diagnosis) 2. Solitary kidney, acquired - ICD9: V45.73, ICD10: Z90.5 > 1 year Appt w/ B. MARQUEZ Carlton MT, PA-C for annual follow-up with CXR and US prior MARQUEZ Chong MT, PA-C Brandon E. Mooney, MPAS, MT, PA-C documented in this encounter [facility] 11-25-2022 Note HNO ID: [id number] Author: RT Scott(R) Service: Nuclear Medicine Author Type: Technologist Type: Progress Notes Filed: 11/25/2022 10:03 AM Note Text: Radiology Service Progress Note PATIENT NAME: Mica Hart DATE OF SERVICE: November 25, 2022 TIME: 9:57 AM PATIENT IDENTITY VERIFICATION COMPLETED USING TWO (2) IDENTIFIERS: Name and Date of confirmed by patient verbally. FALL SCREENING: Has the patient had 2 falls in the last year or 1 fall with injury or currently using an Ambulatory Assistive Device (Walker, Cane, Wheelchair, Crutches, etc.)? Yes, Patient High Risk for Falls What interventions were put in place to prevent falls during this visit? Offered Assistance with Transfers/Clothing and Instructed Patient to Remain Seated (Not on Exam Table) Until Exam PATIENT GENDER DATA: Female. status: : No status: NO. PATIENT RELEVANT IMPLANT DATA REVIEWED: Not Applicable RADIOLOGY DEPARTMENT: General X-ray: Exam(s) Completed: Chest X-Ray PERIPHERAL IV DATA: Not applicable SIGNED BY: RT Scott(R) November 25, 2022 9:57 AM [facility] 11-25-2022 Note HNO ID: [id number] Author: Ellie Kuzmik, RDMS Service: ? Author Type: Director Of Manufacturing Operations Type: Progress Notes Filed: 11/25/2022 9:47 AM Note Text: Radiology Service Progress Note PATIENT NAME: Mica Hart DATE OF SERVICE: November 25, 2022 TIME: 9:47 AM PATIENT IDENTITY VERIFICATION COMPLETED USING TWO (2) IDENTIFIERS: Name and Date of confirmed by patient verbally. FALL SCREENING: Has the patient had 2 falls in the last year or 1 fall with injury or currently using an Ambulatory Assistive Device (Walker, Cane, Wheelchair, Crutches, etc.)? Yes, Patient High Risk for Falls What interventions were put in place to prevent falls during this visit? Instructed Patient to Call for Help if Needed, Offered Assistance with Transfers/Clothing, Instructed Patient to Remain Seated (Not on Exam Table) Until Exam, and Increased Observations by Caregivers PATIENT GENDER DATA: Female. status: : No status: NO. PATIENT RELEVANT IMPLANT DATA REVIEWED: Not Applicable RADIOLOGY DEPARTMENT: Ultrasound PERIPHERAL IV DATA: Not applicable SIGNED BY: Ellie Aponte RDMS RVAnne-Marie November 25, 2022 9:47 AM [facility] 11-25-2022 History of Presen t illness Narrative Radiology Service Progress Note PATIENT NAME: Mica Hart DATE OF SERVICE: November 25, 2022 TIME: 9:57 AM PATIENT IDENTITY VERIFICATION COMPLETED USING TWO (2) IDENTIFIERS: Name and Date of confirmed by patient verbally. FALL SCREENING: Has the patient had 2 falls in the last year or 1 fall with injury or currently using an Ambulatory Assistive Device (Walker, Cane, Wheelchair, Crutches, etc.)? Yes, Patient High Risk for Falls What interventions were put in place to prevent falls during this visit? Offered Assistance with Transfers/Clothing and Instructed Patient to Remain Seated (Not on Exam Table) Until Exam PATIENT GENDER DATA: Female. status: : No status: NO. PATIENT RELEVANT IMPLANT DATA REVIEWED: Not Applicable RADIOLOGY DEPARTMENT: General X-ray: Exam(s) Completed: Chest X-Ray PERIPHERAL IV DATA: Not applicable SIGNED BY: RT Scott(R) November 25, 2022 9:57 AM documented in this encounter [facility] 11-25-2022 Miscellaneous Notes Signed off Kate Baptiste APRN.MARCUS Minda in Radiology called- patient is present there and needs 2 view chest PA Lateral ordered. Chastity Cueva LPN documented in this encounter [facility] 11-25-2022 History of Presen t illness Narrative Radiology Service Progress Note PATIENT NAME: Mica Hart DATE OF SERVICE: November 25, 2022 TIME: 9:47 AM PATIENT IDENTITY VERIFICATION COMPLETED USING TWO (2) IDENTIFIERS: Name and Date of confirmed by patient verbally. FALL SCREENING: Has the patient had 2 falls in the last year or 1 fall with injury or currently using an Ambulatory Assistive Device (Walker, Cane, Wheelchair, Crutches, etc.)? Yes, Patient High Risk for Falls What interventions were put in place to prevent falls during this visit? Instructed Patient to Call for Help if Needed, Offered Assistance with Transfers/Clothing, Instructed Patient to Remain Seated (Not on Exam Table) Until Exam, and Increased Observations by Caregivers PATIENT GENDER DATA: Female. status: : No status: NO. PATIENT RELEVANT IMPLANT DATA REVIEWED: Not Applicable RADIOLOGY DEPARTMENT: Ultrasound PERIPHERAL IV DATA: Not applicable SIGNED BY: Ellie Aponte RDMS RVT November 25, 2022 9:47 AM documented in this encounter [facility] 11-23-2022 Note Patient Outreach (SHORTY MORGANAV) MICA HART ([id number]) 1945 F Date Time Provider Department 11/23/22 HALLEY SANTILLAN During your visit today, we recorded the following information about you: Halley Santillan MA 11/23/2022 2:46 PM Signed POPULATION HEALTH NAVIGATION OUTREACH Action/FYI LV FOLLOW UP VISIT 11-29-22 MEDICARE WELLNESS EXAM DILATED RETINAL EXAM due on 02/20/2021 HBA1C due on 11/22/2022 Patient Identified by Name and : NO Outreach Outcome/Action Unable to reach patient: Left message Did you use a PCP flex slot to schedule this appointment? N/A Reason for Outreach Care Gap or Scheduling/Wellness visits Payer: Payor: MEDICARE / Plan: MEDICARE A AND B / Product Type: Medicare / Care Gap Reviewed:: Follow-up appointment Diabetic Eye Exam HBA1C Reminder: Reminder note to check Health Maintenance for items below Health Maintenance items due: DILATED RETINAL EXAM due on 02/20/2021 ADVANCE DIRECTIVE DISCUSSION Never done HBA1C due on 11/22/2022 Navigation Signature: Halley Santillan MA November 23, 2022 9:41 AM Allergies As of Date: 11/23/2022 Noted Allergy Reaction SULFA (SULFONAMIDE ANTIBIOTICS) 05/14/2005 5 - Intolerance Comments: blisters all over tape [Other] 05/14/2005 5 - Intolerance Comments: blisters TORECAN (THIETHYLPERAZINE MALEATE)05/14/2005 1 - Mental Status Change AMITRIPTYLINE 05/14/2005 8 - GI Upset CODEINE 05/14/2005 8 - GI Upset MOTRIN (IBUPROFEN) 05/14/2005 8 - GI Upset PENICILLINS 05/14/2005 2 - Rash TCN (TETRACYCLINES) 05/14/2005 2 - Rash VOLTAREN (DICLOFENAC SODIUM) 05/14/2005 8 - GI Upset ALTACE (RAMIPRIL) 11/03/2005 5 - Intolerance Comments: sweating DYAZIDE (TRIAMTERENE-HYDROCHLOROT*2010 8 - GI Upset Comments: nausea FLURBIPROFEN 06/06/2007 8 - GI Upset IRON 04/21/2016 8 - GI Upset MORPHINE 08/16/2011 11 - Vomiting Comments: profound nausea PRINIVIL (LISINOPRIL) 11/03/2005 3 - Cough Comments: sweating,cough VICODIN (HYDROCODONE-ACETAMINOPHE*2010 8 - GI Upset Date Reviewed: 06/25/2022 Reviewed by: Tova Orlando LPN - Fully Assessed Reason for Visit: Population Health Navigation Outreach [3910] Cmt: ACO VÍCTOR PCSA Prescriptions as of 11/23/2022 - furosemide (LASIX) 20 mg tablet Take 1 tablet by mouth twice daily as needed (LE edema). - furosemide (LASIX) 20 mg tablet Take 1 tablet by mouth twice daily as needed (LE edema). - oxybutynin ER (DITROPAN XL) 10 mg 24 hr tablet Take 1 tablet by mouth once daily. - DULoxetine (CYMBALTA) 30 mg capsule Take 3 capsules by mouth once daily. - irbesartan (AVAPRO) 300 mg tablet Take 1 tablet by mouth once daily. - amLODIPine (NORVASC) 2.5 mg tablet Take 1 tablet by mouth once daily. - CPAP Initiate Auto PAP @ 5-20 cm of water with humidification. Mask (per patient preference) optional chin strap (if indicated) , filters, tubing, humidifier and lifetime supplies. - loperamide (IMODIUM) 2 mg cap(s) Take 1 capsule by mouth four times daily as needed. - pravastatin (PRAVACHOL) 80 mg tablet Take 1 tablet by mouth once daily. - buPROPion SR (ZYBAN SR; WELLBUTRIN SR) 150 mg 12 hr tablet Take 1 tablet by mouth twice daily. - levothyroxine (SYNTHROID) 112 mcg tablet Take 1 tablet by mouth once daily. - blood sugar diagnostic (BLOOD GLUCOSE TEST) test strip Test blood sugar(s) 1 times daily. Dx: Type 2 DM - Controlled E11.9 Insulin: No - Lancets lancets Test blood sugar(s) 1 times daily. Dx: Type 2 DM - Controlled E11.9 Insulin: No - Lancets (ACCU-CHEK SOFTCLIX LANCETS) lancets Test blood sugar(s) 1 times daily. Dx: Type 2 DM - Controlled E11.9 Insulin: No - aluminum-magnesium hydroxide-simethicone (MAALOX,MYLANTA,MAG-AL PLUS) 200-200-20 mg/5 mL suspension Take 30 mL by mouth every 6 hours as needed (GI upset). - nystatin (MYCOSTATIN) powder Apply 1 application to affected area twice daily. Problem List As Of Date 11/23/2022 Noted Resolved CARPAL TUNNEL SYNDROME [G56.00] 06/24/2005 08/11/2005 ULNAR NERVE LESION [G56.20] 06/24/2005 08/11/2005 Essential hypertension [I10] ATROPHIC GASTRITIS W/O HEMORRH [K29.40] DIAPHRAGMATIC HERNIA [K44.9] PERS HX COLONIC POLYPS [Z86.010] DIVERTICULOSIS OF COLON W/O BLEED [K57.30] MYALGIA AND MYOSITIS NOS [[id number]] Hypothyroidism [E03.9] 11/03/2005 ASHD (arteriosclerotic heart disease) [I25.10] 11/03/2005 Primary osteoarthritis involving multiple joint*06/08/2007 Mixed hyperlipidemia [E78.2] 10/20/2007 KNEE JOINT REPLACEMENT STATUS [Z96.659] 01/02/2009 Urethral Stenosis [JHA0726] 03/26/2010 Hyperactivity of Bladder [N31.8] 03/26/2010 Hyperglycemia [R73.9] 11/10/2010 10/05/2016 S/P right total knee replacement [Z96.659] 11/05/2011 Diabetes mellitus, type 2 (HCC) [E11.9] 02/07/2012 09/06/2017 Lumbar spondylosis [M47.816] 02/11/2012 DDD (degenerative disc disease), lumbar [M51.36]06 (more content not included)... [facility] 11-23-2022 Note HNO ID: [id number] Author: Halley Santillan MA Service: ? Author Type: Automotive Specialty Technician Type: Progress Notes Filed: 11/23/2022 2:46 PM Note Text: POPULATION HEALTH NAVIGATION OUTREACH Action/I LVM FOLLOW UP VISIT 11-29-22 MEDICARE WELLNESS EXAM DILATED RETINAL EXAM due on 02/20/2021 HBA1C due on 11/22/2022 Patient Identified by Name and : NO Outreach Outcome/Action Unable to reach patient: Left message Did you use a PCP flex slot to schedule this appointment? N/A Reason for Outreach Care Gap or Scheduling/Wellness visits Payer: Payor: MEDICARE / Plan: MEDICARE A AND B / Product Type: Medicare / Care Gap Reviewed:: Follow-up appointment Diabetic Eye Exam HBA1C Reminder: Reminder note to check Health Maintenance for items below Health Maintenance items due: DILATED RETINAL EXAM due on 02/20/2021 ADVANCE DIRECTIVE DISCUSSION Never done HBA1C due on 11/22/2022 Navigation Signature: Halley Santillan MA November 23, 2022 9:41 AM [facility] 11-23-2022 History of Presen t illness Narrative POPULATION HEALTH NAVIGATION OUTREACH Action/FYI LVM FOLLOW UP VISIT 11-29-22 MEDICARE WELLNESS EXAM DILATED RETINAL EXAM due on 02/20/2021 HBA1C due on 11/22/2022 Patient Identified by Name and : NO Outreach Outcome/Action Unable to reach patient: Left message Did you use a PCP flex slot to schedule this appointment? N/A Reason for Outreach Care Gap or Scheduling/Wellness visits Payer: Payor: MEDICARE / Plan: MEDICARE A AND B / Product Type: Medicare / Care Gap Reviewed:: Follow-up appointment Diabetic Eye Exam HBA1C Reminder: Reminder note to check Health Maintenance for items below Health Maintenance items due: DILATED RETINAL EXAM due on 02/20/2021 ADVANCE DIRECTIVE DISCUSSION Never done HBA1C due on 11/22/2022 Navigation Signature: Halley Santillan MA November 23, 2022 9:41 AM documented in this encounter [facility] 11-18-2022 Miscellaneous Notes Please review and sign pended orders. Chastity Cueva LPN Please place new xray and US kidney/ bladder orders as these will be by the time of appt on 11/25. documented in this encounter [facility] 11-03-2022 Miscellaneous Notes Pharmacy verified in Epic Patient has been identified by name and date of : Yes Patient aware RX will be sent to pharmacy. No need to notify patient. Patient phones for refill(s): Requested Prescriptions Pending Prescriptions Disp Refills furosemide (LASIX) 20 mg tablet 60 tablet 1 Sig: Take 1 tablet by mouth twice daily as needed (LE edema). furosemide (LASIX) 20 mg tablet 28 tablet 0 Sig: Take 1 tablet by mouth twice daily as needed (LE edema). Date of last office visit : 06/25/2022 Date of next office visit : 11/23/2022 Last 2 Encounter Wt Readings: Date: Wt: 06/25/2022 127.9 kg (282 lb) 05/24/2022 131.7 kg (290 lb 6.4 oz) Please advise. Ilana Arango Pss documented in this encounter [facility] 07-15-2022 Note Patient Outreach (SHORTY CHILDERS) MICA HART ([id number]) 1945 F Date Time Provider Department 07/15/22 HALLEY SANTILLAN During your visit today, we recorded the following information about you: Halley Santillan MA 07/15/2022 3:50 PM Signed POPULATION HEALTH NAVIGATION OUTREACH Action/[facility] [employer] message ANNUAL MEDICARE WELLNESS DILATED RETINAL EXAM due on 02/20/2021 ADVANCE DIRECTIVE DISCUSSION Never done . Pt identified by name and : NO Outreach Outcome/Action Unable to reach patient: Left message [employer] message sent Did you use a PCP flex slot to schedule this appointment? N/A Reason for Outreach Care Gap or Scheduling/Wellness visits Payer: Payor: MEDICARE / Plan: MEDICARE A AND B / Product Type: Medicare / Care Gap Reviewed:: Annual Wellness visit Diabetic Eye Exam Reminder: Reminder note to check Health Maintenance for items below Health Maintenance items due: DILATED RETINAL EXAM due on 02/20/2021 ADVANCE DIRECTIVE DISCUSSION Never done Message Sent to Practice: No Navigation Signature: Halley Santillan MA July 15, 2022 11:48 AM Allergies As of Date: 07/15/2022 Noted Allergy Reaction SULFA (SULFONAMIDE ANTIBIOTICS) 05/14/2005 5 - Intolerance Comments: blisters all over tape [Other] 05/14/2005 5 - Intolerance Comments: blisters TORECAN (THIETHYLPERAZINE MALEATE)05/14/2005 1 - Mental Status Change AMITRIPTYLINE 05/14/2005 8 - GI Upset CODEINE 05/14/2005 8 - GI Upset MOTRIN (IBUPROFEN) 05/14/2005 8 - GI Upset PENICILLINS 05/14/2005 2 - Rash TCN (TETRACYCLINES) 05/14/2005 2 - Rash VOLTAREN (DICLOFENAC SODIUM) 05/14/2005 8 - GI Upset ALTACE (RAMIPRIL) 11/03/2005 5 - Intolerance Comments: sweating DYAZIDE (TRIAMTERENE-HYDROCHLOROT*2010 8 - GI Upset Comments: nausea FLURBIPROFEN 06/06/2007 8 - GI Upset IRON 04/21/2016 8 - GI Upset MORPHINE 08/16/2011 11 - Vomiting Comments: profound nausea PRINIVIL (LISINOPRIL) 11/03/2005 3 - Cough Comments: sweating,cough VICODIN (HYDROCODONE-ACETAMINOPHE*2010 8 - GI Upset Date Reviewed: 06/25/2022 Reviewed by: Tova Orlando LPN - Fully Assessed Reason for Visit: Population Health Navigation Outreach [3910] Cmt: ACChiquis STERN PCSA Prescriptions as of 07/15/2022 - furosemide (LASIX) 20 mg tablet Take 1 tablet by mouth twice daily as needed (LE edema). - oxybutynin ER (DITROPAN XL) 10 mg 24 hr tablet Take 1 tablet by mouth once daily. - DULoxetine (CYMBALTA) 30 mg capsule Take 3 capsules by mouth once daily. - irbesartan (AVAPRO) 300 mg tablet Take 1 tablet by mouth once daily. - amLODIPine (NORVASC) 2.5 mg tablet Take 1 tablet by mouth once daily. - CPAP Initiate Auto PAP @ 5-20 cm of water with humidification. Mask (per patient preference) optional chin strap (if indicated) , filters, tubing, humidifier and lifetime supplies. - loperamide (IMODIUM) 2 mg cap(s) Take 1 capsule by mouth four times daily as needed. - pravastatin (PRAVACHOL) 80 mg tablet Take 1 tablet by mouth once daily. - buPROPion SR (ZYBAN SR; WELLBUTRIN SR) 150 mg 12 hr tablet Take 1 tablet by mouth twice daily. - levothyroxine (SYNTHROID) 112 mcg tablet Take 1 tablet by mouth once daily. - blood sugar diagnostic (BLOOD GLUCOSE TEST) test strip Test blood sugar(s) 1 times daily. Dx: Type 2 DM - Controlled E11.9 Insulin: No - Lancets lancets Test blood sugar(s) 1 times daily. Dx: Type 2 DM - Controlled E11.9 Insulin: No - Lancets (ACCU-CHEK SOFTCLIX LANCETS) lancets Test blood sugar(s) 1 times daily. Dx: Type 2 DM - Controlled E11.9 Insulin: No - aluminum-magnesium hydroxide-simethicone (MAALOX,MYLANTA,MAG-AL PLUS) 200-200-20 mg/5 mL suspension Take 30 mL by mouth every 6 hours as needed (GI upset). - nystatin (MYCOSTATIN) powder Apply 1 application to affected area twice daily. 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 [facility] 07-15-2022 Note HNO ID: [id number] Author: Halley Santillan MA Service: ? Author Type: Automotive Specialty Technician Type: Progress Notes Filed: 07/15/2022 3:50 PM Note Text: POPULATION HEALTH NAVIGATION OUTREACH Action/FYI Lvm mychart message ANNUAL MEDICARE WELLNESS DILATED RETINAL EXAM due on 02/20/2021 ADVANCE DIRECTIVE DISCUSSION Never done . Pt identified by name and : NO Outreach Outcome/Action Unable to reach patient: Left message [employer] message sent Did you use a PCP flex slot to schedule this appointment? N/A Reason for Outreach Care Gap or Scheduling/Wellness visits Payer: Payor: MEDICARE / Plan: MEDICARE A AND B / Product Type: Medicare / Care Gap Reviewed:: Annual Wellness visit Diabetic Eye Exam Reminder: Reminder note to check Health Maintenance for items below Health Maintenance items due: DILATED RETINAL EXAM due on 02/20/2021 ADVANCE DIRECTIVE DISCUSSION Never done Message Sent to Practice: No Navigation Signature: Halley Santillan MA July 15, 2022 11:48 AM [facility] 07-15-2022 History of Presen t illness Narrative POPULATION HEALTH NAVIGATION OUTREACH Action/FYI Lvm mychart message ANNUAL MEDICARE WELLNESS DILATED RETINAL EXAM due on 02/20/2021 ADVANCE DIRECTIVE DISCUSSION Never done . Pt identified by name and : NO Outreach Outcome/Action Unable to reach patient: Left message MyChart message sent Did you use a PCP flex slot to schedule this appointment? N/A Reason for Outreach Care Gap or Scheduling/Wellness visits Payer: Payor: MEDICARE / Plan: MEDICARE A AND B / Product Type: Medicare / Care Gap Reviewed:: Annual Wellness visit Diabetic Eye Exam Reminder: Reminder note to check Health Maintenance for items below Health Maintenance items due: DILATED RETINAL EXAM due on 02/20/2021 ADVANCE DIRECTIVE DISCUSSION Never done Message Sent to Practice: No Navigation Signature: Halley Santillan MA July 15, 2022 11:48 AM documented in this encounter [facility] 07-01-2022 Miscellaneous Notes Pt read message on 06/29 with no response. Closing encounter. DASHA [facility] message sent to patient. Charlene Yancey LPN Message left for patient to return call to be updated with results/recommendations. ----- Message from Sienna Saldivar MD sent at 06/26/2022 9:58 AM EST ----- Kidney function still in CKD stage III range, but is down slightly from last check 1 month ago. Sugar high at 141. Continue to work on low carb, low sodium diet, avoidance of NSAIDs, push PO fluids. Will recheck at upcoming OV. documented in this encounter [facility] 06-25-2022 Note HNO ID: [id number] Author: Sienna Saldivar MD Service: ? Author Type: Physician Type: Progress Notes Filed: 06/27/2022 8:45 AM Note Text: Chief Complaint Patient presents with: Follow Up: Regarding what kidney and heart doctor said- she's here to update you. HPI Mica Hart is a 76 year old female who presents here today for Above Complaints.. Patient started on Laxis for 1+ edema to LE bilaterally. BNP and EKG negative. States that her swelling in her legs has improved on this regimen. Met with nephrology and cardiology and states that they did not think this was related to renal failure or CHF. No changes to her regimen. Has order for compression stockings, but has not picked them up. DM: A1c in good range on current regimen. Following DM diet some of the time. Denies hypoglycemia or worsening symptoms. Due for foot exam today. BP well controlled. FELICITY: patient is compliant with her CPAP on a nightly basis, but does not always wake up with it on. Gets up to use the restroom about 1-2 times per night and doesn't always per her mask back on. Requesting handicap placard. Using walker for ambulation. Past medical history, appointments, medications, allergies reviewed. Previous Medical History PAST MEDICAL HISTORY Diagnosis Date Atrophic gastritis without mention of hemorrhage GASTRITIS CHRONIC ATROPHIC( W/O Hemorrhage) Benign neoplasm of colon CAD (coronary artery disease) s/p stent, Seeing Dr. Robertson Cataracts, bilateral CKD (chronic kidney disease) stage 3, GFR 30-59 ml/min ([facility]) left nephrectomy, [facility] Closed fracture of two ribs DDD (degenerative disc disease), lumbar Depression Diabetes (HCC) diet controlled Diaphragmatic hernia without mention of obstruction or gangrene HIATAL HERNIA Diverticulosis of colon (without mention of hemorrhage) Diverticulosis Elevated uric acid in blood Hypothyroidism Irritable bowel syndrome Mitral valve disorders Morbid obesity (HCC) Myalgia and myositis, unspecified FIBROMYALGIA FELICITY (obstructive sleep apnea) 11/02/2021 Osteopenia Personal history of colonic polyps Renal cell carcinoma (HCC) 04/21/[address] Hawkins Unspecified essential hypertension Essential hypertension Unspecified gastritis and gastroduodenitis without mention of hemorrhage Urinary incontinence Previous Surgical History PAST SURGICAL HISTORY Procedure Laterality Date APPENDECTOMY 1977 ARTHRP KNE CONDYLEANDPLATU MEDIALANDLAT COMPARTMENTS 11/2008 Knee replacement, total left ARTHRP KNE CONDYLEANDPLATU MEDIALANDLAT COMPARTMENTS 08/2011 Knee replacement, total Rt CHOLECYSTECTOMY 1970 Cholecystectomy COLONOSCOPY FLX DX W/COLLJ SPEC WHEN PFRMD 2004 Colonoscopy with polypectomy COLONOSCOPY FLX DX W/COLLJ SPEC WHEN PFRMD 01/28/11 ESOPHAGOGASTRODUODENOSCOPY TRANSORAL DIAGNOSTIC 01/2005 EGD LAP NEPHRECTOMY Left 03/2016 renal cell carcinoma NEUROPLASTY AND/TRANSPOS MEDIAN NRV CARPAL TUNNE 06-24-05 Carpal tunnel decomp RIGHT PAST SURGICAL HISTORY OF GANGLION X2 LEFT WRIST PAST SURGICAL HISTORY OF 1989, 1966 PARTIAL THYROIDECTOMY X2 PAST SURGICAL HISTORY OF 1997 TMJ PAST SURGICAL HISTORY OF 09/2012 stent TONSILLECTOMY AND ADENOIDECTOMY TOTAL ABDOMINAL HYSTERECT W/WO RMVL TUBE OVARY Hysterectomy, LORNA Family History FAMILY HISTORY Problem Relation Age of Onset Heart Mother Hypertension Mother Arthritis Mother other (dementia) Mother ? Cancer Father bladder Heart Father heart disease Cancer Brother throat Cancer Brother skin Heart Failure Maternal Grandmother No Known Problems Maternal Grandfather No Known Problems Paternal Grandmother No Known Problems Paternal Grandfather Patient Allergies ALLERGIES Allergen Reactions Sulfa (Sulfonamide * Intolerance blisters all over Tape [Other] Intolerance blisters Torecan [Thiethylpe* Mental Status Change Amitriptyline GI Upset Codeine GI Upset Motrin [Ibuprofen] GI Upset Penicillins Rash Tcn [Tetracyclines] Rash Voltaren [Diclofena* GI Upset Altace [Ramipril] Intolerance sweating Dyazide [Triamteren* GI Upset nausea Flurbiprofen GI Upset Iron GI Upset Morphine Vomiting profound nausea Prinivil [Lisinopri* Cough sweating,cough Vicodin [Hydrocodon* GI Upset Current Medications Current Outpatient Medications on File Prior to Visit Medication Sig oxybutynin ER (DITROPAN XL) 10 mg 24 hr tablet Take 1 tablet by mouth once daily. DULoxetine (CYMBALTA) 30 mg capsule Take 3 capsules by mouth once daily. irbesartan (AVAPRO) 300 mg tablet Take 1 tablet by mouth once daily. amLODIPine (NORVASC) 2.5 mg tablet Take 1 tablet by mouth once daily. furosemide (LASIX) 20 mg tablet Take 1 tablet by mouth twice daily. CPAP Initiate Auto PAP @ 5-20 cm of water with humidification. Mask (per patient preference) optional chin strap (if indicated) , filters, tubing, humidifier and lifetime supplies. (more content not included)... [facility] 06-25-2022 History of Presen t illness Narrative Chief Complaint Patient presents with: Follow Up: Regarding what kidney and heart doctor said- she's here to update you. HPI Mica Hart is a 76 year old female who presents here today for Above Complaints.. Patient started on Laxis for 1+ edema to LE bilaterally. BNP and EKG negative. States that her swelling in her legs has improved on this regimen. Met with nephrology and cardiology and states that they did not think this was related to renal failure or CHF. No changes to her regimen. Has order for compression stockings, but has not picked them up. DM: A1c in good range on current regimen. Following DM diet some of the time. Denies hypoglycemia or worsening symptoms. Due for foot exam today. BP well controlled. FELICITY: patient is compliant with her CPAP on a nightly basis, but does not always wake up with it on. Gets up to use the restroom about 1-2 times per night and doesn't always per her mask back on. Requesting handicap placard. Using walker for ambulation. Past medical history, appointments, medications, allergies reviewed. Previous Medical History PAST MEDICAL HISTORY Diagnosis Date Atrophic gastritis without mention of hemorrhage GASTRITIS CHRONIC ATROPHIC( W/O Hemorrhage) Benign neoplasm of colon CAD (coronary artery disease) s/p stent, Seeing Dr. Robertson Cataracts, bilateral CKD (chronic kidney disease) stage 3, GFR 30-59 ml/min ([facility]) left nephrectomy, [facility] Closed fracture of two ribs DDD (degenerative disc disease), lumbar Depression Diabetes (HCC) diet controlled Diaphragmatic hernia without mention of obstruction or gangrene HIATAL HERNIA Diverticulosis of colon (without mention of hemorrhage) Diverticulosis Elevated uric acid in blood Hypothyroidism Irritable bowel syndrome Mitral valve disorders Morbid obesity (HCC) Myalgia and myositis, unspecified FIBROMYALGIA FELICITY (obstructive sleep apnea) 11/02/2021 Osteopenia Personal history of colonic polyps Renal cell carcinoma (HCC) 04/21/[address] Hawkins Unspecified essential hypertension Essential hypertension Unspecified gastritis and gastroduodenitis without mention of hemorrhage Urinary incontinence Previous Surgical History PAST SURGICAL HISTORY Procedure Laterality Date APPENDECTOMY 1977 ARTHRP KNE CONDYLE&PLATU MEDIAL&LAT COMPARTMENTS 11/2008 Knee replacement, total left ARTHRP KNE CONDYLE&PLATU MEDIAL&LAT COMPARTMENTS 08/2011 Knee replacement, total Rt CHOLECYSTECTOMY 1971 Cholecystectomy COLONOSCOPY FLX DX W/COLLJ SPEC WHEN PFRMD 2004 Colonoscopy with polypectomy COLONOSCOPY FLX DX W/COLLJ SPEC WHEN PFRMD 01/28/11 ESOPHAGOGASTRODUODENOSCOPY TRANSORAL DIAGNOSTIC 01/2005 EGD LAP NEPHRECTOMY Left 03/2016 renal cell carcinoma NEUROPLASTY &/TRANSPOS MEDIAN NRV CARPAL TUNNE 06-24-05 Carpal tunnel decomp RIGHT PAST SURGICAL HISTORY OF GANGLION X2 LEFT WRIST PAST SURGICAL HISTORY OF 1989, 1966 PARTIAL THYROIDECTOMY X2 PAST SURGICAL HISTORY OF 1997 TMJ PAST SURGICAL HISTORY OF 09/2012 stent TONSILLECTOMY & ADENOIDECTOMY <AGE 13 TOTAL ABDOMINAL HYSTERECT W/WO RMVL TUBE OVARY Hysterectomy, LORNA Family History FAMILY HISTORY Problem Relation Age of Onset Heart Mother Hypertension Mother Arthritis Mother other (dementia) Mother ? Cancer Father bladder Heart Father heart disease Cancer Brother throat Cancer Brother skin Heart Failure Maternal Grandmother No Known Problems Maternal Grandfather No Known Problems Paternal Grandmother No Known Problems Paternal Grandfather Patient Allergies ALLERGIES Allergen Reactions Sulfa (Sulfonamide * Intolerance blisters all over Tape [Other] Intolerance blisters Torecan [Thiethylpe* Mental Status Change Amitriptyline GI Upset Codeine GI Upset Motrin [Ibuprofen] GI Upset Penicillins Rash Tcn [Tetracyclines] Rash Voltaren [Diclofena* GI Upset Altace [Ramipril] Intolerance sweating Dyazide [Triamteren* GI Upset nausea Flurbiprofen GI Upset Iron GI Upset Morphine Vomiting profound nausea Prinivil [Lisinopri* Cough sweating,cough Vicodin [Hydrocodon* GI Upset Current Medications Current Outpatient Medications on File Prior to Visit Medication Sig oxybutynin ER (DITROPAN XL) 10 mg 24 hr tablet Take 1 tablet by mouth once daily. DULoxetine (CYMBALTA) 30 mg capsule Take 3 capsules by mouth once daily. irbesartan (AVAPRO) 300 mg tablet Take 1 tablet by mouth once daily. amLODIPine (NORVASC) 2.5 mg tablet Take 1 tablet by mouth once daily. furosemide (LASIX) 20 mg tablet Take 1 tablet by mouth twice daily. CPAP Initiate Auto PAP @ 5-20 cm of water with humidification. Mask (per patient preference) optional chin strap (if indicated) , filters, tubing, humidifier and lifetime supplies. loperamide (IMODIUM) 2 mg cap(s) Take 1 capsule by mouth four times daily as needed. pravastatin (PRAVACHOL) 80 mg tablet Take 1 tablet by mouth once daily. buPROPion SR (ZYBAN SR; WELLBUTRIN SR) 150 mg 12 hr tablet Take 1 tablet by mouth twice daily. levothyroxine (SYNTHROID) 112 mcg tablet Take 1 tablet by mouth once daily. blood sugar diagnostic (BLOOD GLUCOSE TEST) test strip Test blood sugar(s) 1 times daily. Dx: Type 2 DM - Controlled E11.9 Insulin: No Lancets lancets Test blood sugar(s) 1 times daily. Dx: Type 2 DM - Controlled E11.9 Insulin: No aluminum-magnesium hydroxide-simethicone (MAALOX,MYLANTA,MAG-AL PLUS) 200-200-20 mg/5 mL suspension Take 30 mL by mouth every 6 hours as needed (GI upset). nystatin (MYCOSTATIN) powder Apply 1 application to affected area twice daily. Lancets (ACCU-CHEK SOFTCLIX LANCETS) lancets Test blood sugar(s) 1 times daily. Dx: Type 2 DM - Controlled E11.9 Insulin: No No current facility-administered medications on file prior to visit. Social History Social History Tobacco Use Smoking status: Former Packs/day: 1.00 Years: 1.00 Pack years: 1.00 Types: Cigarettes Quit date: 07/01/1975 Years since quittin.0 Smokeless tobacco: Never Vaping Use Vaping Use: Never used Substance Use Topics Alcohol use: No Drug use: No Review of Symptoms REVIEW OF SYSTEMS GENERAL: No weight loss, malaise or fevers RESPIRATORY: Negative for cough, hemoptysis, wheezing, COPD, dyspnea or shortness of breath CARDIOVASCULAR: Negative for chest pain, leg swelling, hypertension, CHF or palpitations GI: No nausea, vomiting, or diarrhea SKIN: Negative for lesions, rash, and itching EXAM: BP 122/62 Pulse 72 Resp 20 Wt 127.9 kg (282 lb) SpO2 92% BMI 49.95 kg/m General Appearance: Well appearing, alert, in no acute distress, well-hydrated, well nourished.. Skin: Skin color, texture, turgor normal, no suspicious rashes or lesions. Lungs: Lungs clear to auscultation. No wheezing, rhonchi, rales.. Heart: RRR without murmur, gallop, or rubs. No ectopy. Abdomen: Normal abdominal exam, Abdomen soft, non-tender. Bowel sounds normal. No masses, organomegaly. Extremities: No deformities, edema, skin discoloration, clubbing or cyanosis. Good capillary refill. . Feet: Shoes and socks removed, No deformities, ulcers, calluses, and normal distal pulses Health Maintenance List BP CONTROLLED (<130/80) Never done COLORECTAL CANCER SCREENING due on 01/28/2021 DILATED RETINAL EXAM due on 02/20/2021 ADVANCE DIRECTIVE DISCUSSION Never done DIABETIC FOOT EXAM due on 05/07/2022 HBA1C due on 11/22/2022 URINE ALBUMIN:CREATININE RATIO due on 04/29/2023 LDL CHOLESTEROL due on 04/29/2023 ANNUAL PCP TEAM CHRONIC DISEASE VISIT due on 05/24/2023 SERUM CREATININE due on 05/24/2023 HEMOGLOBIN/HEMATOCRIT due on 05/24/2023 DTAP,TDAP,TD(3 - Tdap) due on 07/11/2023 BONE DENSITY Completed INFLUENZA Completed HEPATITIS C SCREENING Completed SHINGRIX VACCINE Completed COVID-19 VACCINE Completed PNEUMOCOCCAL: 65+ Completed Data reviewed Component Latest Ref Rng & Units 05/24/2022 Protein, Total 6.3 - 8.0 g/dL 6.9 Albumin 3.9 - 4.9 g/dL 4.2 Calcium 8.5 - 10.2 mg/dL 9.7 Bilirubin, Total 0.2 - 1.3 mg/dL 0.6 Alkaline Phosphatase 34 - 123 U/L 96 AST 13 - 35 U/L 27 ALT 7 - 38 U/L 28 Glucose 74 - 99 mg/dL 102 (H) BUN 7 - 21 mg/dL 15 Creatinine 0.58 - 0.96 mg/dL 1.17 (H) Sodium 136 - 144 mmol/L 139 Potassium 3.7 - 5.1 mmol/L 4.5 Chloride 97 - 105 mmol/L 107 (H) CO2 22 - 30 mmol/L 21 (L) Anion Gap 9 - 18 mmol/L 11 eGFR >=60 mL/min/1.73m 49 (L) WBC 3.70 - 11.00 k/uL 6.73 RBC 3.90 - 5.20 m/uL 4.42 Hemoglobin 11.5 - 15.5 g/dL 13.3 Hematocrit 36.0 - 46.0 % 42.2 MCV 80.0 - 100.0 fL 95.5 MCH 26.0 - 34.0 pg 30.1 MCHC 30.5 - 36.0 g/dL 31.5 RDW-CV 11.5 - 15.0 % 13.7 Platelet Count 150 - 400 k/uL 160 MPV 9.0 - 12.7 fL 12.0 Absolute nRBC <0.01 k/uL <0.01 Hemoglobin A1C 4.3 - 5.6 % 6.1 (H) Estimated Average Glucose mg/dL 128 NT Pro BNP <450 pg/mL 215 Component Latest Ref Rng & Units 04/29/2022 Cholesterol, Total <200 mg/dL 187 Triglyceride <150 mg/dL 169 (H) HDL Cholesterol >39 mg/dL 44 Non HDL Cholesterol <130 mg/dL 143 (H) Fasting Time hrs 12 VLDL Cholesterol <30 mg/dL 34 (H) TC:HDL Ratio <5.10 4.25 LDL Cholesterol <100 mg/dL 109 (H) LDL:HDL Ratio <2.54 2.48 ASSESSMENT/PLAN: 1. Bilateral leg edema - ICD9: 782.3, ICD10: R60.0 (primary diagnosis) Improved. Wear compression stockings daily. Low sodium diet. Make take lasix PRN. Recheck renal function and potssium. - FUROSEMIDE 20 MG TABLET 2. Type 2 DM with CKD stage 3 and hypertension (HCC) - ICD9: 250.40, 403.90, 585.3, ICD10: E11.22, I12.9, N18.30 Controlled on current regimen. Discussed low carb diet, check sugars fasting daily. F/u in 6 months. 3. Essential hypertension - ICD9: 401.9, ICD10: I10 - good control - Continue current medication(s) - Encouraged dietary sodium restriction/DASH diet - Recommended regular aerobic exercise. - Reviewed risks of HTN and principles of treatment - Goal of BP <140/90 4. Mixed hyperlipidemia - ICD9: 272.2, ICD10: E78.2 - suboptimal control - Continue current medication. - Encouraged following a low fat, low cholesterol diet. - Discussed the benefits of regular aerobic exercise and weight loss. - Check fasting lipid panel and ALT at next OV. 5. PAD (peripheral artery disease) (HCC) - ICD9: 443.9, ICD10: I73.9 Continue statin and recommend ASA daily. 6. Unsteady gait when walking - ICD9: 781.2, ICD10: R26.81 - PARKING FOR HANDICAPPED 7. FELICITY (obstructive sleep apnea) - ICD9: 327.23, ICD10: G47.33 Controlled on nightly CPAP. 8. Stage 3a chronic kidney disease (HCC) - ICD9: 585.3, ICD10: N18.31 Recheck. - BASIC METABOLIC PNL Sienna Saldivar MD documented in this encounter [facility] 05-24-[address] Robertson's Office calls to request a copy of today's OV note and EKG results to schedule a cardiology follow up appointment. Faxed to [phone] per request. Ramona Lehman RN documented in this encounter [facility] 04-30-2022 History of Presen t illness Narrative 04/30/2022 Patient presents with: Blood Pressure: Elevated with edema in bilateral feet Edema: Both feet SUBJECTIVE: This is a 76 year old that is here today for Above Complaints. Has noticed some higher blood pressures the last week. 140-160's systolic. Brought home cuff the validate against ours. Denies headaches, visual changes, extremity numbness, tingling weakness, facial drooping, slurred speech, or confusion For about six weeks has had some swelling to bilateral feet. Fine in AM but swell as the day goes on. Denies SOB, dyspnea, chest pain, or palpitations. PAST MEDICAL HISTORY Diagnosis Date Atrophic gastritis without mention of hemorrhage GASTRITIS CHRONIC ATROPHIC( W/O Hemorrhage) Benign neoplasm of colon CAD (coronary artery disease) s/p stent, Seeing Dr. Robertson Cataracts, bilateral CKD (chronic kidney disease) stage 3, GFR 30-59 ml/min ([facility]) left nephrectomy, [facility] Closed fracture of two ribs DDD (degenerative disc disease), lumbar Depression Diabetes ([facility]) diet controlled Diaphragmatic hernia without mention of obstruction or gangrene HIATAL HERNIA Diverticulosis of colon (without mention of hemorrhage) Diverticulosis Elevated uric acid in blood Hypothyroidism Irritable bowel syndrome Mitral valve disorders Morbid obesity (HCC) Myalgia and myositis, unspecified FIBROMYALGIA FELICITY (obstructive sleep apnea) 11/02/2021 Osteopenia Personal history of colonic polyps Renal cell carcinoma (HCC) 04/21/[address] Hawkins Unspecified essential hypertension Essential hypertension Unspecified gastritis and gastroduodenitis without mention of hemorrhage Urinary incontinence ALLERGIES Sulfa (Sulfonamide Antibiotics), Tape [Other], Torecan [Thiethylperazine Maleate], Amitriptyline, Codeine, Motrin [Ibuprofen], Penicillins, Tcn [Tetracyclines], Voltaren [Diclofenac Sodium], Altace [Ramipril], Dyazide [Triamterene-Hydrochlorothiazid] , Flurbiprofen, Iron, Morphine, Prinivil [Lisinopril], and Vicodin [Hydrocodone-Acetaminophen] MEDICATIONS Current Outpatient Medications Medication Sig DULoxetine (CYMBALTA) 30 mg capsule Take 3 capsules by mouth once daily. irbesartan (AVAPRO) 300 mg tablet Take 1 tablet by mouth once daily. amLODIPine (NORVASC) 2.5 mg tablet Take 1 tablet by mouth once daily. CPAP Initiate Auto PAP @ 5-20 cm of water with humidification. Mask (per patient preference) optional chin strap (if indicated) , filters, tubing, humidifier and lifetime supplies. loperamide (IMODIUM) 2 mg cap(s) Take 1 capsule by mouth four times daily as needed. pravastatin (PRAVACHOL) 80 mg tablet Take 1 tablet by mouth once daily. oxybutynin ER (DITROPAN XL) 10 mg 24 hr tablet Take 1 tablet by mouth once daily. buPROPion SR (ZYBAN SR; WELLBUTRIN SR) 150 mg 12 hr tablet Take 1 tablet by mouth twice daily. levothyroxine (SYNTHROID) 112 mcg tablet Take 1 tablet by mouth once daily. blood sugar diagnostic (BLOOD GLUCOSE TEST) test strip Test blood sugar(s) 1 times daily. Dx: Type 2 DM - Controlled E11.9 Insulin: No Lancets lancets Test blood sugar(s) 1 times daily. Dx: Type 2 DM - Controlled E11.9 Insulin: No aluminum-magnesium hydroxide-simethicone (MAALOX,MYLANTA,MAG-AL PLUS) 200-200-20 mg/5 mL suspension Take 30 mL by mouth every 6 hours as needed (GI upset). nystatin (MYCOSTATIN) powder Apply 1 application to affected area twice daily. Lancets (ACCU-CHEK SOFTCLIX LANCETS) lancets Test blood sugar(s) 1 times daily. Dx: Type 2 DM - Controlled E11.9 Insulin: No No current facility-administered medications for this visit. Medications and allergies reviewed by this provider. SOCIAL HISTORY Social History Tobacco Use Smoking status: Former Packs/day: 1.00 Years: 1.00 Pack years: 1.00 Types: Cigarettes Quit date: 07/01/1975 Years since quittin.8 Smokeless tobacco: Never Vaping Use Vaping Use: Never used Substance Use Topics Alcohol use: No Drug use: No REVIEW OF SYSTEMS All other reviewed and negative other than HPI. OBJECTIVE: BP 129/74 Pulse 71 Resp 18 Wt 128.2 kg (282 lb 9.6 oz) SpO2 95% BMI 50.06 kg/m . Vital signs reviewed by this provider. APPEARANCE Well appearing, alert, in no acute distress, well-hydrated, well nourished. and Morbidly obese EYES PERRLA, conjunctiva and sclera normal. HEART RRR with normal S1 and S2, no murmurs, no gallops, no JVD appreciated LUNG clear to auscultation EXTREMITIES No deformities, No skin discoloration, and Normal pulses bilaterally. Trace to 1+ non pitting edema to BLE from ankles to mid brewer SKIN Skin color, texture, turgor normal, no suspicious rashes or lesions to exposed skin Component Latest Ref Rng & Units 04/29/2022 Glucose 74 - 99 mg/dL 116 (H) BUN 7 - 21 mg/dL 15 Creatinine 0.58 - 0.96 mg/dL 1.13 (H) Sodium 136 - 144 mmol/L 140 Potassium 3.7 - 5.1 mmol/L 4.7 Chloride 97 - 105 mmol/L 106 (H) CO2 22 - 30 mmol/L 23 Anion Gap 9 - 18 mmol/L 11 Calcium 8.5 - 10.2 mg/dL 9.5 eGFR >=60 mL/min/1.73m 51 (L) Cholesterol, Total <200 mg/dL 187 Triglyceride <150 mg/dL 169 (H) HDL Cholesterol >39 mg/dL 44 Non HDL Cholesterol <130 mg/dL 143 (H) Fasting Time hrs 12 VLDL Cholesterol <30 mg/dL 34 (H) TC:HDL Ratio <5.10 4.25 LDL Cholesterol <100 mg/dL 109 (H) LDL:HDL Ratio <2.54 2.48 Creatinine, Ur Random (UCRR) 20.0 - 300.0 mg/dL 110.1 Albumin, Urine Random mg/L <12.0 Albumin/Creat Ratio <30 mg/g <11 COLORECTAL CANCER SCREENING due on 01/28/2021 DILATED RETINAL EXAM due on 02/20/2021 ADVANCE DIRECTIVE DISCUSSION Never done INFLUENZA(1) due on 04/15/2022 DIABETIC FOOT EXAM due on 05/07/2022 HEMOGLOBIN/HEMATOCRIT due on 05/07/2022 HBA1C due on 05/07/2022 URINE ALBUMIN:CREATININE RATIO due on 04/29/2023 LDL CHOLESTEROL due on 04/29/2023 SERUM CREATININE due on 04/29/2023 ANNUAL PCP TEAM CHRONIC DISEASE VISIT due on 04/30/2023 BP CONTROLLED (<130/80) due on 04/30/2023 DTAP,TDAP,TD(3 - Tdap) due on 07/11/2023 BONE DENSITY Completed HEPATITIS C SCREENING Completed SHINGRIX VACCINE Completed COVID-19 VACCINE Completed PNEUMOCOCCAL: 65+ Completed ASSESSMENT/PLAN: 1. Essential hypertension - ICD9: 401.9, ICD10: I10 (primary diagnosis) - good control in office today- discussed how to monitor BP at home and is to call f getting consistent readings of higher or equal to 140/90 - Continue current medication(s) - Encouraged dietary sodium restriction/DASH diet - Recommended regular aerobic exercise. - Recommend home blood pressure monitoring, to bring results in on next visit - Discussed need and benefit for weight loss. - Goal of BP <140/90 - follow-up in one month, sooner if needed 2. Bilateral leg edema - ICD9: 782.3, ICD10: R60.0 - patient has gained 22# since office visit in October - no red flag symptoms or exam finding - red flag symptoms discussed, verbalizes understanding - COMPRESSION STOCKINGS - discussed low salt diet, elevation of legs when sitting, compression hose and working on weight loss - follow-up if persists 3. BMI 50.0-59.9, adult (HCC) - ICD9: V85.43, ICD10: Z68.43 Weight increasing - Behavioral intervention - Lengthy discussion in office today regarding diet and exercise. Discussed use of small plate to eat meals from, drink 1 glass of water 10-15 minutes prior to eating meal, drink 8 glasses of water daily, eat fresh fruit and vegetable during meal first then lean protein such as grilled/baked chicken breast or fish, limit carbohydrate intake (less pasta, breads, rice and snack foods) as well as limiting sugars (desserts etc). Important to count / track your calories and exercise as well. Annemarie Small APRN.CNP Prescription instructions reviewed with patient as applicable. Patient advised if symptoms do not improve or if symptoms worsen sooner, to contact their primary care physician. Potential red flag symptoms discussed with the patient. Reviewed appropriate action plan to take if red flag symptoms occur. Patient agreeable to treatment plan. I spent a total of 30 minutes on the date of the service which included preparing to see the patient, [id number] patient care, completing clinical documentation, obtaining and/or reviewing separately obtained history, performing a medically appropriate examination, counseling and educating the patient/family/caregiver, and ordering medications, tests, or procedures. documented in this encounter [facility] 04-27-2022 Miscellaneous Notes Pt called and notified of all information below. Verbalized understanding. Leann Pelayo Ma Have patient bring home cuff to appointment. Annemarie Small APRN.CNP Let patient know I have placed order for blood work along with urine. She should fast 10 hours prior. Thanks, Annemarie Small APRN.CNP Patient reports she has been having elevated BP's the past month- 140's-150's / 68-70 with HR 63. Top number is usually 130's. Having feet swelling also. Concerned it has something to do with her stage III kidney disease. Scheduled appt with [facility] this Tuesday. Patient asking provider to order kidney labs and she will go to lab prior to appt. Please phone patient to let her know when orders are in lab. documented in this encounter [facility] 02-17-2022 Miscellaneous Notes Patient phones requesting refills as follows: Pending Prescriptions Disp Refills DULOXETINE 30 MG CAPSULE,DELAYED RELEASE 270 capsule 1 Sig: Take 3 capsules by mouth once daily. KYLE: No IRBESARTAN 300 MG TABLET 90 tablet 1 Sig: Take 1 tablet by mouth once daily. KYLE: No AMLODIPINE 2.5 MG TABLET 30 tablet 2 Sig: Take 1 tablet by mouth once daily. KYLE: No BONITA 11/02/21 NOV no upcoming appt Please review and advise. Marco Coffman LPN documented in this encounter [facility] 12-16-2021 History of Presen t illness Narrative Manual Readin/86 Pulse: 62 BP Yaya average: 128/73 P: 64 Repeat BP Check: 132/80 P68 #1 131/80 P58 #2 120/64 P60 #3 125/71 P72 #4 129/73 P65 #5 128/72 P59 #6 Reason for blood pressure check - Last BP elevated and Medication adjustment Patient is: Taking medication as prescribed Yes Took medication today Yes If no, date medication last taken N/A Experiencing side effects No BP continued to be elevated at nurse visit 11/30/21. Was started on Amlodipine 2.5mg daily. Tolerating medication well. Denies any chest pain, shortness of breath, dizziness, or headaches. No caffeine use. No tobacco use/exposure. Alert and oriented. Pt has been identified by name and birthdate: Yes Allergies reviewed: Yes Latex allergy: no. Medication - prescribed and OTC reviewed and updated: Yes Do you need any prescription refills prior to your next visit: No Health Maintenance: Reviewed and not up to date and provider notified Patient advised to continue with current medications and would be contacted after review by PCP. Yulisa Bustos LPN documented in this encounter [facility] 12-07-2021 Miscellaneous Notes Patient has an appt with [facility] nurse on 12/16 Spoke to patient who verbalizes understanding of providers message. Please assist patient in scheduling an appointment with the [facility] nurse for two weeks from now to re-check BP. Thank you. DASHA Rice BP still high. Add amlodipine 2.5 mg PO daily to regimen and recheck in 2 weeks at [place]. Call with BP <100/60, lightheadedness, or new leg swelling. Manual Readin/78 Pulse: 60 BP Yaya average: 148/81 P: 59 Repeat BP Check: 154/79 P57 #1 149/83 P57 #2 147/82 P59 #3 147/81 P59 #4 143/80 P60 #5 147/83 P59 #6 Reason for blood pressure check - Last BP elevated and Medication adjustment Patient is: Taking medication as prescribed Yes Took medication today Yes If no, date medication last taken N/A Experiencing side effects No BP continued to be elevated at nurse visit 11/16/21. Avapro was increased to 300mg. Tolerating medication change well. Home readings have ranged 131-170/60-97. Denies any chest pain, shortness of breath, dizziness, or headaches. No caffeine use. No tobacco use/exposure. Alert and oriented. Pt has been identified by name and birthdate: Yes Allergies reviewed: Yes Latex allergy: no. Medication - prescribed and OTC reviewed and updated: Yes Do you need any prescription refills prior to your next visit: No Health Maintenance: Reviewed and not up to date and provider notified Patient advised that she would be contacted after review by PCP. Yulisa Bustos LPN documented in this encounter [facility] 11-30-2021 History of Presen t illness Narrative Manual Readin/78 Pulse: 60 BP Yaya average: 148/81 P: 59 Repeat BP Check: 154/79 P57 #1 149/83 P57 #2 147/82 P59 #3 147/81 P59 #4 143/80 P60 #5 147/83 P59 #6 Reason for blood pressure check - Last BP elevated and Medication adjustment Patient is: Taking medication as prescribed Yes Took medication today Yes If no, date medication last taken N/A Experiencing side effects No BP continued to be elevated at nurse visit 11/16/21. Avapro was increased to 300mg. Tolerating medication change well. Home readings have ranged 131-170/60-97. Denies any chest pain, shortness of breath, dizziness, or headaches. No caffeine use. No tobacco use/exposure. Alert and oriented. Pt has been identified by name and birthdate: Yes Allergies reviewed: Yes Latex allergy: no. Medication - prescribed and OTC reviewed and updated: Yes Do you need any prescription refills prior to your next visit: No Health Maintenance: Reviewed and not up to date and provider notified Patient advised that she would be contacted after review by PCP. Yulisa Bustos LPN documented in this encounter [facility] 11-16-2021 Miscellaneous Notes Patient telephoned. Made aware and voiced understanding. Nurse visit for BP check set up for 11/30/21. Charlene Yancey LPN BP improving, but still high. Increase irbesartan to 300 mg daily and recheck in 2 weeks at [place]. Manual Readin/84 Pulse: 62 Home Cuff: 139/79 P: 60 BP Yaya average: 144/79 P: 63 Repeat BP Check: 150/77 P60 #1 148/79 P62 #2 136/76 P64 #3 148/79 P61 #4 142/88 P69 #5 141/76 P61 #6 Reason for blood pressure check - Last BP elevated and Medication adjustment Patient is: Taking medication as prescribed Yes Took medication today Yes If no, date medication last taken N/A Experiencing side effects No BP was elevated at last appt 11/02/21. Irbesartan was increased to 225mg daily. Tolerating medication change well. Denies any chest pain, shortness of breath, dizziness, or headaches. No caffeine use. No tobacco use/exposure. Alert and oriented. Pt has been identified by name and birthdate: Yes Allergies reviewed: Yes Latex allergy: no. Medication - prescribed and OTC reviewed and updated: Yes Do you need any prescription refills prior to your next visit: No Health Maintenance: Reviewed and not up to date and provider notified Patient advised that she would be contacted after review by PCP. Yulisa Bustos LPN documented in this encounter [facility] 11-16-2021 History of Presen t illness Narrative Manual Readin/84 Pulse: 62 Home Cuff: 139/79 P: 60 BP Yaya average: 144/79 P: 63 Repeat BP Check: 150/77 P60 #1 148/79 P62 #2 136/76 P64 #3 148/79 P61 #4 142/88 P69 #5 141/76 P61 #6 Reason for blood pressure check - Last BP elevated and Medication adjustment Patient is: Taking medication as prescribed Yes Took medication today Yes If no, date medication last taken N/A Experiencing side effects No BP was elevated at last appt 11/02/21. Irbesartan was increased to 225mg daily. Tolerating medication change well. Denies any chest pain, shortness of breath, dizziness, or headaches. No caffeine use. No tobacco use/exposure. Alert and oriented. Pt has been identified by name and birthdate: Yes Allergies reviewed: Yes Latex allergy: no. Medication - prescribed and OTC reviewed and updated: Yes Do you need any prescription refills prior to your next visit: No Health Maintenance: Reviewed and not up to date and provider notified Patient advised that she would be contacted after review by PCP. Yulisa Bustos LPN documented in this encounter [facility] documented as of this encounter (statuses as of 11/16/2021) [facility] History of Past illness Narrative* Problem Noted Date Resolved Date Anemia in stage 3 chronic kidney disease 018 04/11/2020 Anemia in CKD (chronic kidney disease) 6 04/11/2020 Pleural effusion, left 04/21/2016 0 Renal neoplasm 03/15/2016 10/18/2017 Type 2 diabetes mellitus wit hout complication, without long-term current use of insulin 03/10/2016 04/11/2020 Hx of right coronary artery stent placement 02/1303/10/2016 Left renal mass 01/21/2016 10/18/2017 Diabetes mellitus type 2, uncomplicated 09/01/19 16 03/10/2016 DM2 (diabetes mellitus, type 2) 03/20/2014 09/01/2015 SI (sacroiliac) pain 03/10/2012 09/06/2017 Diabetes mellitus, type 2 02/07/20122017 Hyperglycemia 11/10/2010 10/05/2016 Carpal tunnel syndrome 06/24/2005 5 Lesion of ulnar nerve 06/24/2005 08/11/2005 documented as of this encounter (statuses as of 11/30/2021) [facility] History of Past illness Narrative* Problem Noted Date Resolved Date Anemia in stage 3 chronic kidney disease 018 04/11/2020 Anemia in CKD (chronic kidney disease) 6 04/11/2020 Pleural effusion, left 04/21/2016 0 Renal neoplasm 03/15/2016 10/18/2017 Type 2 diabetes mellitus wit hout complication, without long-term current use of insulin 03/10/2016 04/11/2020 Hx of right coronary artery stent placement 02/1303/10/2016 Left renal mass 01/21/2016 10/18/2017 Diabetes mellitus type 2, uncomplicated 09/01/19 16 03/10/2016 DM2 (diabetes mellitus, type 2) 03/20/2014 09/01/2015 SI (sacroiliac) pain 03/10/2012 09/06/2017 Diabetes mellitus, type 2 02/07/20122017 Hyperglycemia 11/10/2010 10/05/2016 Carpal tunnel syndrome 06/24/2005 5 Lesion of ulnar nerve 06/24/2005 08/11/2005 documented as of this encounter (statuses as of 12/16/2021) [facility] History of Past illness Narrative* Problem Noted Date Resolved Date Anemia in stage 3 chronic kidney disease 018 04/11/2020 Anemia in CKD (chronic kidney disease) 6 04/11/2020 Pleural effusion, left 04/21/2016 0 Renal neoplasm 03/15/2016 10/18/2017 Type 2 diabetes mellitus wit hout complication, without long-term current use of insulin 03/10/2016 04/11/2020 Hx of right coronary artery stent placement 02/1303/10/2016 Left renal mass 01/21/2016 10/18/2017 Diabetes mellitus type 2, uncomplicated 09/01/19 16 03/10/2016 DM2 (diabetes mellitus, type 2) 03/20/2014 09/01/2015 SI (sacroiliac) pain 03/10/2012 09/06/2017 Diabetes mellitus, type 2 02/07/20122017 Hyperglycemia 11/10/2010 10/05/2016 Carpal tunnel syndrome 06/24/2005 5 Lesion of ulnar nerve 06/24/2005 08/11/2005 documented as of this encounter (statuses as of 02/17/2022) [facility] History of Past illness Narrative* Problem Noted Date Resolved Date Anemia in stage 3 chronic kidney disease 018 04/11/2020 Anemia in CKD (chronic kidney disease) 6 04/11/2020 Pleural effusion, left 04/21/2016 0 Renal neoplasm 03/15/2016 10/18/2017 Type 2 diabetes mellitus wit hout complication, without long-term current use of insulin 03/10/2016 04/11/2020 Hx of right coronary artery stent placement 02/1303/10/2016 Left renal mass 01/21/2016 10/18/2017 Diabetes mellitus type 2, uncomplicated 09/01/19 16 03/10/2016 DM2 (diabetes mellitus, type 2) 03/20/2014 09/01/2015 SI (sacroiliac) pain 03/10/2012 09/06/2017 Diabetes mellitus, type 2 02/07/20122017 Hyperglycemia 11/10/2010 10/05/2016 Carpal tunnel syndrome 06/24/2005 5 Lesion of ulnar nerve 06/24/2005 08/11/2005 documented as of this encounter (statuses as of 02/18/2022) [facility] History of Past illness Narrative* Problem Noted Date Resolved Date Anemia in stage 3 chronic kidney disease 018 04/11/2020 Anemia in CKD (chronic kidney disease) 6 04/11/2020 Pleural effusion, left 04/21/2016 0 Renal neoplasm 03/15/2016 10/18/2017 Type 2 diabetes mellitus wit hout complication, without long-term current use of insulin 03/10/2016 04/11/2020 Hx of right coronary artery stent placement 02/1303/10/2016 Left renal mass 01/21/2016 10/18/2017 Diabetes mellitus type 2, uncomplicated 09/01/19 16 03/10/2016 DM2 (diabetes mellitus, type 2) 03/20/2014 09/01/2015 SI (sacroiliac) pain 03/10/2012 09/06/2017 Diabetes mellitus, type 2 02/07/20122017 Hyperglycemia 11/10/2010 10/05/2016 Carpal tunnel syndrome 06/24/2005 5 Lesion of ulnar nerve 06/24/2005 08/11/2005 documented as of this encounter (statuses as of 04/27/2022) [facility] History of Past illness Narrative* Problem Noted Date Resolved Date Anemia in stage 3 chronic kidney disease 018 04/11/2020 Anemia in CKD (chronic kidney disease) 6 04/11/2020 Pleural effusion, left 04/21/2016 0 Renal neoplasm 03/15/2016 10/18/2017 Type 2 diabetes mellitus wit hout complication, without long-term current use of insulin 03/10/2016 04/11/2020 Hx of right coronary artery stent placement 02/1303/10/2016 Left renal mass 01/21/2016 10/18/2017 Diabetes mellitus type 2, uncomplicated 09/01/19 16 03/10/2016 DM2 (diabetes mellitus, type 2) 03/20/2014 09/01/2015 SI (sacroiliac) pain 03/10/2012 09/06/2017 Diabetes mellitus, type 2 02/07/20122017 Hyperglycemia 11/10/2010 10/05/2016 Carpal tunnel syndrome 06/24/2005 5 Lesion of ulnar nerve 06/24/2005 08/11/2005 documented as of this encounter (statuses as of 04/30/2022) [facility] History of Past illness Narrative* Problem Noted Date Resolved Date Anemia in stage 3 chronic kidney disease 018 04/11/2020 Anemia in CKD (chronic kidney disease) 6 04/11/2020 Pleural effusion, left 04/21/2016 0 Renal neoplasm 03/15/2016 10/18/2017 Type 2 diabetes mellitus wit hout complication, without long-term current use of insulin 03/10/2016 04/11/2020 Hx of right coronary artery stent placement 02/1303/10/2016 Left renal mass 01/21/2016 10/18/2017 Diabetes mellitus type 2, uncomplicated 09/01/19 16 03/10/2016 DM2 (diabetes mellitus, type 2) 03/20/2014 09/01/2015 SI (sacroiliac) pain 03/10/2012 09/06/2017 Diabetes mellitus, type 2 02/07/20122017 Hyperglycemia 11/10/2010 10/05/2016 Carpal tunnel syndrome 06/24/2005 5 Lesion of ulnar nerve 06/24/2005 08/11/2005 documented as of this encounter (statuses as of 05/24/2022) [facility] History of Past illness Narrative* Problem Noted Date Resolved Date Anemia in stage 3 chronic kidney disease 018 04/11/2020 Anemia in CKD (chronic kidney disease) 6 04/11/2020 Pleural effusion, left 04/21/2016 0 Renal neoplasm 03/15/2016 10/18/2017 Type 2 diabetes mellitus wit hout complication, without long-term current use of insulin 03/10/2016 04/11/2020 Hx of right coronary artery stent placement 02/1303/10/2016 Left renal mass 01/21/2016 10/18/2017 Diabetes mellitus type 2, uncomplicated 09/01/19 16 03/10/2016 DM2 (diabetes mellitus, type 2) 03/20/2014 09/01/2015 SI (sacroiliac) pain 03/10/2012 09/06/2017 Diabetes mellitus, type 2 02/07/20122017 Hyperglycemia 11/10/2010 10/05/2016 Carpal tunnel syndrome 06/24/2005 5 Lesion of ulnar nerve 06/24/2005 08/11/2005 documented as of this encounter (statuses as of 06/27/2022) [facility] History of Past illness Narrative* Problem Noted Date Resolved Date Anemia in stage 3 chronic kidney disease 018 04/11/2020 Anemia in CKD (chronic kidney disease) 6 04/11/2020 Pleural effusion, left 04/21/2016 0 Renal neoplasm 03/15/2016 10/18/2017 Type 2 diabetes mellitus wit hout complication, without long-term current use of insulin 03/10/2016 04/11/2020 Hx of right coronary artery stent placement 02/1303/10/2016 Left renal mass 01/21/2016 10/18/2017 Diabetes mellitus type 2, uncomplicated 09/01/19 16 03/10/2016 DM2 (diabetes mellitus, type 2) 03/20/2014 09/01/2015 SI (sacroiliac) pain 03/10/2012 09/06/2017 Diabetes mellitus, type 2 02/07/20122017 Hyperglycemia 11/10/2010 10/05/2016 Carpal tunnel syndrome 06/24/2005 5 Lesion of ulnar nerve 06/24/2005 08/11/2005 documented as of this encounter (statuses as of 07/01/2022) [facility] History of Past illness Narrative* Problem Noted Date Resolved Date Anemia in stage 3 chronic kidney disease 018 04/11/2020 Anemia in CKD (chronic kidney disease) 6 04/11/2020 Pleural effusion, left 04/21/2016 0 Renal neoplasm 03/15/2016 10/18/2017 Type 2 diabetes mellitus wit hout complication, without long-term current use of insulin 03/10/2016 04/11/2020 Hx of right coronary artery stent placement 02/1303/10/2016 Left renal mass 01/21/2016 10/18/2017 Diabetes mellitus type 2, uncomplicated 09/01/19 16 03/10/2016 DM2 (diabetes mellitus, type 2) 03/20/2014 09/01/2015 SI (sacroiliac) pain 03/10/2012 09/06/2017 Diabetes mellitus, type 2 02/07/20122017 Hyperglycemia 11/10/2010 10/05/2016 Carpal tunnel syndrome 06/24/2005 5 Lesion of ulnar nerve 06/24/2005 08/11/2005 documented as of this encounter (statuses as of 07/15/2022) [facility] History of Past illness Narrative* Problem Noted Date Resolved Date Anemia in stage 3 chronic kidney disease 018 04/11/2020 Anemia in CKD (chronic kidney disease) 6 04/11/2020 Pleural effusion, left 04/21/2016 0 Renal neoplasm 03/15/2016 10/18/2017 Type 2 diabetes mellitus wit hout complication, without long-term current use of insulin 03/10/2016 04/11/2020 Hx of right coronary artery stent placement 02/1303/10/2016 Left renal mass 01/21/2016 10/18/2017 Diabetes mellitus type 2, uncomplicated 09/01/19 16 03/10/2016 DM2 (diabetes mellitus, type 2) 03/20/2014 09/01/2015 SI (sacroiliac) pain 03/10/2012 09/06/2017 Diabetes mellitus, type 2 02/07/20122017 Hyperglycemia 11/10/2010 10/05/2016 Carpal tunnel syndrome 06/24/2005 5 Lesion of ulnar nerve 06/24/2005 08/11/2005 documented as of this encounter (statuses as of 11/03/2022) [facility] History of Past illness Narrative* Problem Noted Date Resolved Date Anemia in stage 3 chronic kidney disease 018 04/11/2020 Anemia in CKD (chronic kidney disease) 6 04/11/2020 Pleural effusion, left 04/21/2016 0 Renal neoplasm 03/15/2016 10/18/2017 Type 2 diabetes mellitus wit hout complication, without long-term current use of insulin 03/10/2016 04/11/2020 Hx of right coronary artery stent placement 02/1303/10/2016 Left renal mass 01/21/2016 10/18/2017 Diabetes mellitus type 2, uncomplicated 09/01/19 16 03/10/2016 DM2 (diabetes mellitus, type 2) 03/20/2014 09/01/2015 SI (sacroiliac) pain 03/10/2012 09/06/2017 Diabetes mellitus, type 2 02/07/20122017 Hyperglycemia 11/10/2010 10/05/2016 Carpal tunnel syndrome 06/24/2005 5 Lesion of ulnar nerve 06/24/2005 08/11/2005 documented as of this encounter (statuses as of 11/20/2022) [facility] History of Past illness Narrative* Problem Noted Date Resolved Date Anemia in stage 3 chronic kidney disease 018 04/11/2020 Anemia in CKD (chronic kidney disease) 6 04/11/2020 Pleural effusion, left 04/21/2016 0 Renal neoplasm 03/15/2016 10/18/2017 Type 2 diabetes mellitus wit hout complication, without long-term current use of insulin 03/10/2016 04/11/2020 Hx of right coronary artery stent placement 02/1303/10/2016 Left renal mass 01/21/2016 10/18/2017 Diabetes mellitus type 2, uncomplicated 09/01/19 16 03/10/2016 DM2 (diabetes mellitus, type 2) 03/20/2014 09/01/2015 SI (sacroiliac) pain 03/10/2012 09/06/2017 Diabetes mellitus, type 2 02/07/20122017 Hyperglycemia 11/10/2010 10/05/2016 Carpal tunnel syndrome 06/24/2005 5 Lesion of ulnar nerve 06/24/2005 08/11/2005 documented as of this encounter (statuses as of 11/24/2022) [facility] History of Past illness Narrative* Problem Noted Date Resolved Date Anemia in stage 3 chronic kidney disease 018 04/11/2020 Anemia in CKD (chronic kidney disease) 6 04/11/2020 Pleural effusion, left 04/21/2016 0 Renal neoplasm 03/15/2016 10/18/2017 Type 2 diabetes mellitus wit hout complication, without long-term current use of insulin 03/10/2016 04/11/2020 Hx of right coronary artery stent placement 02/1303/10/2016 Left renal mass 01/21/2016 10/18/2017 Diabetes mellitus type 2, uncomplicated 09/01/19 16 03/10/2016 DM2 (diabetes mellitus, type 2) 03/20/2014 09/01/2015 SI (sacroiliac) pain 03/10/2012 09/06/2017 Diabetes mellitus, type 2 02/07/20122017 Hyperglycemia 11/10/2010 10/05/2016 Carpal tunnel syndrome 06/24/2005 5 Lesion of ulnar nerve 06/24/2005 08/11/2005 documented as of this encounter (statuses as of 11/26/2022) [facility] History of Past illness Narrative* Problem Noted Date Resolved Date Anemia in stage 3 chronic kidney disease 018 04/11/2020 Anemia in CKD (chronic kidney disease) 6 04/11/2020 Pleural effusion, left 04/21/2016 0 Renal neoplasm 03/15/2016 10/18/2017 Type 2 diabetes mellitus wit hout complication, without long-term current use of insulin 03/10/2016 04/11/2020 Hx of right coronary artery stent placement 02/1303/10/2016 Left renal mass 01/21/2016 10/18/2017 Diabetes mellitus type 2, uncomplicated 09/01/19 16 03/10/2016 DM2 (diabetes mellitus, type 2) 03/20/2014 09/01/2015 SI (sacroiliac) pain 03/10/2012 09/06/2017 Diabetes mellitus, type 2 02/07/20122017 Hyperglycemia 11/10/2010 10/05/2016 Carpal tunnel syndrome 06/24/2005 5 Lesion of ulnar nerve 06/24/2005 08/11/2005 documented as of this encounter (statuses as of 11/27/2022) [facility] History of Past illness Narrative* Problem Noted Date Resolved Date Anemia in stage 3 chronic kidney disease 018 04/11/2020 Anemia in CKD (chronic kidney disease) 6 04/11/2020 Pleural effusion, left 04/21/2016 0 Renal neoplasm 03/15/2016 10/18/2017 Type 2 diabetes mellitus wit hout complication, without long-term current use of insulin 03/10/2016 04/11/2020 Hx of right coronary artery stent placement 02/1303/10/2016 Left renal mass 01/21/2016 10/18/2017 Diabetes mellitus type 2, uncomplicated 09/01/19 16 03/10/2016 DM2 (diabetes mellitus, type 2) 03/20/2014 09/01/2015 SI (sacroiliac) pain 03/10/2012 09/06/2017 Diabetes mellitus, type 2 02/07/20122017 Hyperglycemia 11/10/2010 10/05/2016 Carpal tunnel syndrome 06/24/2005 5 Lesion of ulnar nerve 06/24/2005 08/11/2005 documented as of this encounter (statuses as of 12/02/2022) [facility] History of Past illness Narrative* Problem Noted Date Resolved Date Anemia in stage 3 chronic kidney disease 018 04/11/2020 Anemia in CKD (chronic kidney disease) 6 04/11/2020 Pleural effusion, left 04/21/2016 0 Renal neoplasm 03/15/2016 10/18/2017 Type 2 diabetes mellitus wit hout complication, without long-term current use of insulin 03/10/2016 04/11/2020 Hx of right coronary artery stent placement 02/1303/10/2016 Left renal mass 01/21/2016 10/18/2017 Diabetes mellitus type 2, uncomplicated 09/01/19 16 03/10/2016 DM2 (diabetes mellitus, type 2) 03/20/2014 09/01/2015 SI (sacroiliac) pain 03/10/2012 09/06/2017 Diabetes mellitus, type 2 02/07/20122017 Hyperglycemia 11/10/2010 10/05/2016 Carpal tunnel syndrome 06/24/2005 5 Lesion of ulnar nerve 06/24/2005 08/11/2005 documented as of this encounter (statuses as of 12/05/2022) [facility] History of Past illness Narrative* Problem Noted Date Diagnosed Date Resolved Date Anemia in stage 3 chronic kidney disease 10/18/2017 04/11/2020 Anemia in CKD (chronic kidney disease) 07/22/2016 04/11/2020 Pleural effusion, left 04/21/201604/11 Renal neoplasm 03/15/2016 10/18/2017 Type 2 diabetes mellitus wit hout complication, without long-term current use of insulin 03/10/2016 04/11/2020 Hx of right coronary artery stent placement 03/10/2016 03/10/2016 Left renal mass 01/21/2016 10/18/2017 Diabetes mellitus type 2, uncomplicated 09/01/2015 03/10/2016 DM2 (diabetes mellitus, type 2) 03/20/2014 09/01/2015 SI (sacroiliac) pain 03/10/2012 018 Diabetes mellitus, type 2 02/07/2012 Hyperglycemia 11/10/2010 10/05/2016 Carpal tunnel syndrome 06/24/200508/11 Lesion of ulnar nerve 06/24/20052004 documented as of this encounter (statuses as of 03/10/2023) [facility] History of Past illness Narrative* Problem Noted Date Diagnosed Date Resolved Date Anemia in stage 3 chronic kidney disease 10/18/2017 04/11/2020 Anemia in CKD (chronic kidney disease) 07/22/2016 04/11/2020 Pleural effusion, left 04/21/201604/11 Renal neoplasm 03/15/2016 10/18/2017 Type 2 diabetes mellitus wit hout complication, without long-term current use of insulin 03/10/2016 04/11/2020 Hx of right coronary artery stent placement 03/10/2016 03/10/2016 Left renal mass 01/21/2016 10/18/2017 Diabetes mellitus type 2, uncomplicated 09/01/2015 03/10/2016 DM2 (diabetes mellitus, type 2) 03/20/2014 09/01/2015 SI (sacroiliac) pain 03/10/2012 018 Diabetes mellitus, type 2 02/07/2012 Hyperglycemia 11/10/2010 10/05/2016 Carpal tunnel syndrome 06/24/200508/11 Lesion of ulnar nerve 06/24/20052004 documented as of this encounter (statuses as of 03/10/2023) [facility] History of Past illness Narrative* Problem Noted Date Diagnosed Date Resolved Date Anemia in stage 3 chronic kidney disease 10/18/2017 04/11/2020 Anemia in CKD (chronic kidney disease) 07/22/2016 04/11/2020 Pleural effusion, left 04/21/201604/11 Renal neoplasm 03/15/2016 10/18/2017 Type 2 diabetes mellitus wit hout complication, without long-term current use of insulin 03/10/2016 04/11/2020 Hx of right coronary artery stent placement 03/10/2016 03/10/2016 Left renal mass 01/21/2016 10/18/2017 Diabetes mellitus type 2, uncomplicated 09/01/2015 03/10/2016 DM2 (diabetes mellitus, type 2) 03/20/2014 09/01/2015 SI (sacroiliac) pain 03/10/2012 018 Diabetes mellitus, type 2 02/07/2012 Hyperglycemia 11/10/2010 10/05/2016 Carpal tunnel syndrome 06/24/200508/11 Lesion of ulnar nerve 06/24/20052004 documented as of this encounter (statuses as of 03/31/2023) [facility] History of Past illness Narrative* Problem Noted Date Diagnosed Date Resolved Date Anemia in stage 3 chronic kidney disease 10/18/2017 04/11/2020 Anemia in CKD (chronic kidney disease) 07/22/2016 04/11/2020 Pleural effusion, left 04/21/201604/11 Renal neoplasm 03/15/2016 10/18/2017 Type 2 diabetes mellitus wit hout complication, without long-term current use of insulin 03/10/2016 04/11/2020 Hx of right coronary artery stent placement 03/10/2016 03/10/2016 Left renal mass 01/21/2016 10/18/2017 Diabetes mellitus type 2, uncomplicated 09/01/2015 03/10/2016 DM2 (diabetes mellitus, type 2) 03/20/2014 09/01/2015 SI (sacroiliac) pain 03/10/2012 018 Diabetes mellitus, type 2 02/07/2012 Hyperglycemia 11/10/2010 10/05/2016 Carpal tunnel syndrome 06/24/200508/11 Lesion of ulnar nerve 06/24/20052004 documented as of this encounter (statuses as of 04/13/2023) [facility] History of Past illness Narrative* Problem Noted Date Diagnosed Date Resolved Date Anemia in stage 3 chronic kidney disease 10/18/2017 04/11/2020 Anemia in CKD (chronic kidney disease) 07/22/2016 04/11/2020 Pleural effusion, left 04/21/201604/11 Renal neoplasm 03/15/2016 10/18/2017 Type 2 diabetes mellitus wit hout complication, without long-term current use of insulin 03/10/2016 04/11/2020 Hx of right coronary artery stent placement 03/10/2016 03/10/2016 Left renal mass 01/21/2016 10/18/2017 Diabetes mellitus type 2, uncomplicated 09/01/2015 03/10/2016 DM2 (diabetes mellitus, type 2) 03/20/2014 09/01/2015 SI (sacroiliac) pain 03/10/2012 018 Diabetes mellitus, type 2 02/07/2012 Hyperglycemia 11/10/2010 10/05/2016 Carpal tunnel syndrome 06/24/200508/11 Lesion of ulnar nerve 06/24/20052004 documented as of this encounter (statuses as of 04/14/2023) [facility] History of Past illness Narrative* Problem Noted Date Diagnosed Date Resolved Date Anemia in stage 3 chronic kidney disease 10/18/2017 04/11/2020 Anemia in CKD (chronic kidney disease) 07/22/2016 04/11/2020 Pleural effusion, left 04/21/201604/11 Renal neoplasm 03/15/2016 10/18/2017 Type 2 diabetes mellitus wit hout complication, without long-term current use of insulin 03/10/2016 04/11/2020 Hx of right coronary artery stent placement 03/10/2016 03/10/2016 Left renal mass 01/21/2016 10/18/2017 Diabetes mellitus type 2, uncomplicated 09/01/2015 03/10/2016 DM2 (diabetes mellitus, type 2) 03/20/2014 09/01/2015 SI (sacroiliac) pain 03/10/2012 018 Diabetes mellitus, type 2 02/07/2012 Hyperglycemia 11/10/2010 10/05/2016 Carpal tunnel syndrome 06/24/200508/11 Lesion of ulnar nerve 06/24/20052004 documented as of this encounter (statuses as of 04/19/2023) [facility] History of Past illness Narrative* Problem Noted Date Diagnosed Date Resolved Date Anemia in stage 3 chronic kidney disease 10/18/2017 04/11/2020 Anemia in CKD (chronic kidney disease) 07/22/2016 04/11/2020 Pleural effusion, left 04/21/201604/11 Renal neoplasm 03/15/2016 10/18/2017 Type 2 diabetes mellitus wit hout complication, without long-term current use of insulin 03/10/2016 04/11/2020 Hx of right coronary artery stent placement 03/10/2016 03/10/2016 Left renal mass 01/21/2016 10/18/2017 Diabetes mellitus type 2, uncomplicated 09/01/2015 03/10/2016 DM2 (diabetes mellitus, type 2) 03/20/2014 09/01/2015 SI (sacroiliac) pain 03/10/2012 018 Diabetes mellitus, type 2 02/07/2012 Hyperglycemia 11/10/2010 10/05/2016 Carpal tunnel syndrome 06/24/200508/11 Lesion of ulnar nerve 06/24/20052004 documented as of this encounter (statuses as of 04/26/2023) [facility] History of Past illness Narrative* Problem Noted Date Diagnosed Date Resolved Date Anemia in stage 3 chronic kidney disease 10/18/2017 04/11/2020 Anemia in CKD (chronic kidney disease) 07/22/2016 04/11/2020 Pleural effusion, left 04/21/201604/11 Renal neoplasm 03/15/2016 10/18/2017 Type 2 diabetes mellitus wit hout complication, without long-term current use of insulin 03/10/2016 04/11/2020 Hx of right coronary artery stent placement 03/10/2016 03/10/2016 Left renal mass 01/21/2016 10/18/2017 Diabetes mellitus type 2, uncomplicated 09/01/2015 03/10/2016 DM2 (diabetes mellitus, type 2) 03/20/2014 09/01/2015 SI (sacroiliac) pain 03/10/2012 018 Diabetes mellitus, type 2 02/07/2012 Hyperglycemia 11/10/2010 10/05/2016 Carpal tunnel syndrome 06/24/200508/11 Lesion of ulnar nerve 06/24/20052004 documented as of this encounter (statuses as of 05/23/2023) [facility] History of Past illness Narrative* Problem Noted Date Diagnosed Date Resolved Date Anemia in stage 3 chronic kidney disease 10/18/2017 04/11/2020 Anemia in CKD (chronic kidney disease) 07/22/2016 04/11/2020 Pleural effusion, left 04/21/201604/11 Renal neoplasm 03/15/2016 10/18/2017 Type 2 diabetes mellitus wit hout complication, without long-term current use of insulin 03/10/2016 04/11/2020 Hx of right coronary artery stent placement 03/10/2016 03/10/2016 Left renal mass 01/21/2016 10/18/2017 Diabetes mellitus type 2, uncomplicated 09/01/2015 03/10/2016 DM2 (diabetes mellitus, type 2) 03/20/2014 09/01/2015 SI (sacroiliac) pain 03/10/2012 018 Diabetes mellitus, type 2 02/07/2012 Hyperglycemia 11/10/2010 10/05/2016 Carpal tunnel syndrome 06/24/200508/11 Lesion of ulnar nerve 06/24/20052004 documented as of this encounter (statuses as of 05/31/2023) [facility] History of Past illness Narrative* Problem Noted Date Diagnosed Date Resolved Date Anemia in stage 3 chronic kidney disease 10/18/2017 04/11/2020 Anemia in CKD (chronic kidney disease) 07/22/2016 04/11/2020 Pleural effusion, left 04/21/201604/11 Renal neoplasm 03/15/2016 10/18/2017 Type 2 diabetes mellitus wit hout complication, without long-term current use of insulin 03/10/2016 04/11/2020 Hx of right coronary artery stent placement 03/10/2016 03/10/2016 Left renal mass 01/21/2016 10/18/2017 Diabetes mellitus type 2, uncomplicated 09/01/2015 03/10/2016 DM2 (diabetes mellitus, type 2) 03/20/2014 09/01/2015 SI (sacroiliac) pain 03/10/2012 018 Diabetes mellitus, type 2 02/07/2012 Hyperglycemia 11/10/2010 10/05/2016 Carpal tunnel syndrome 06/24/200508/11 Lesion of ulnar nerve 06/24/20052004 documented as of this encounter (statuses as of 06/19/2023) [facility] History of Past illness Narrative* Problem Noted Date Diagnosed Date Resolved Date Anemia in stage 3 chronic kidney disease 10/18/2017 04/11/2020 Anemia in CKD (chronic kidney disease) 07/22/2016 04/11/2020 Pleural effusion, left 04/21/201604/11 Renal neoplasm 03/15/2016 10/18/2017 Type 2 diabetes mellitus wit hout complication, without long-term current use of insulin 03/10/2016 04/11/2020 Hx of right coronary artery stent placement 03/10/2016 03/10/2016 Left renal mass 01/21/2016 10/18/2017 Diabetes mellitus type 2, uncomplicated 09/01/2015 03/10/2016 DM2 (diabetes mellitus, type 2) 03/20/2014 09/01/2015 SI (sacroiliac) pain 03/10/2012 018 Diabetes mellitus, type 2 02/07/2012 Hyperglycemia 11/10/2010 10/05/2016 Carpal tunnel syndrome 06/24/200508/11 Lesion of ulnar nerve 06/24/20052004 documented as of this encounter (statuses as of 06/19/2023) [facility] History of Past illness Narrative* Problem Noted Date Diagnosed Date Resolved Date Anemia in stage 3 chronic kidney disease 10/18/2017 04/11/2020 Anemia in CKD (chronic kidney disease) 07/22/2016 04/11/2020 Pleural effusion, left 04/21/201604/11 Renal neoplasm 03/15/2016 10/18/2017 Type 2 diabetes mellitus wit hout complication, without long-term current use of insulin 03/10/2016 04/11/2020 Hx of right coronary artery stent placement 03/10/2016 03/10/2016 Left renal mass 01/21/2016 10/18/2017 Diabetes mellitus type 2, uncomplicated 09/01/2015 03/10/2016 DM2 (diabetes mellitus, type 2) 03/20/2014 09/01/2015 SI (sacroiliac) pain 03/10/2012 018 Diabetes mellitus, type 2 02/07/2012 Hyperglycemia 11/10/2010 10/05/2016 Carpal tunnel syndrome 06/24/200508/11 Lesion of ulnar nerve 06/24/20052004 documented as of this encounter (statuses as of 06/19/2023) [facility] History of Past illness Narrative* Problem Noted Date Diagnosed Date Resolved Date Anemia in stage 3 chronic kidney disease 10/18/2017 04/11/2020 Anemia in CKD (chronic kidney disease) 07/22/2016 04/11/2020 Pleural effusion, left 04/21/201604/11 Renal neoplasm 03/15/2016 10/18/2017 Type 2 diabetes mellitus wit hout complication, without long-term current use of insulin 03/10/2016 04/11/2020 Hx of right coronary artery stent placement 03/10/2016 03/10/2016 Left renal mass 01/21/2016 10/18/2017 Diabetes mellitus type 2, uncomplicated 09/01/2015 03/10/2016 DM2 (diabetes mellitus, type 2) 03/20/2014 09/01/2015 SI (sacroiliac) pain 03/10/2012 018 Diabetes mellitus, type 2 02/07/2012 Hyperglycemia 11/10/2010 10/05/2016 Carpal tunnel syndrome 06/24/200508/11 Lesion of ulnar nerve 06/24/20052004 documented as of this encounter (statuses as of 06/24/2023) [facility]* Diagnosis Essential hypertension- Primary Unspecified essential hypertension documented in this encounter [facility]* Diagnosis Essential hypertension- Primary Unspecified essential hypertension documented in this encounter [facility]* Diagnosis Moderate episode of recurrent major depressive disorder (HCC) documented in this encounter [facility]* Diagnosis 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 Mixed hyperlipidemia [facility] Diagnosis Essential hypertension- Primary Unspecified essential hypertension Bilateral leg edema Edema BMI 50.0-59.9, adult (HCC) Body Mass Index 50.0-59.9, adult [facility] Diagnosis Bilateral leg edema- Primary Edema Type 2 DM with CKD stage 3 and hypertension (HCC) Essential hypertension Unspecified essential hypertension Mixed hyperlipidemia PAD (peripheral artery disease) ([facility]) Peripheral vascular disease, unspecified Unsteady gait when walking FELICITY (obstructive sleep apnea) Obstructive sleep apnea (adult) (pediatric) Stage 3a chronic kidney disease (HCC) [facility] Diagnosis Bilateral leg edema Edema [facility] Diagnosis Solitary kidney, acquired- Primary Acquired absence of kidney [facility] Diagnosis Solitary kidney, acquired- Primary Acquired absence of kidney [facility] Diagnosis Renal cell carcinoma, unspecified laterality (HCC)- Primary Solitary kidney, acquired Acquired absence of kidney [facility] Diagnosis Hyperkalemia- Primary Hyperpotassemia [facility] Diagnosis Age-related physical debility- Primary Senility without mention of psychosis At high risk for falls Personal history of fall Type 2 DM with CKD stage 3 and hypertension (HCC) Essential hypertension Unspecified essential hypertension Mixed hyperlipidemia Coronary artery disease involving [place] heart without angina pectoris, unspecified vessel or lesion type S/P coronary artery stent placement Postsurgical percutaneous transluminal coronary angioplasty status Renal cell carcinoma of left kidney (HCC) Single kidney Acquired absence of kidney Stage 3b chronic kidney disease (HCC) Moderate episode of recurrent major depressive disorder (HCC) FELICITY (obstructive sleep apnea) Obstructive sleep apnea (adult) (pediatric) Acquired hypothyroidism Unspecified hypothyroidism Morbid obesity with body mass index (BMI) of 45.0 to 49.9 in adult (HCC) PAD (peripheral artery disease) (HCC) Peripheral vascular disease, unspecified Secondary hyperparathyroidism of renal origin (HCC) Secondary hyperparathyroidism (of renal origin) [facility] Acute gout involving toe of left foot, unspecified cause- Primary [facility] Diagnosis Acquired hypothyroidism Unspecified hypothyroidism Unsteady gait when walking Screening mammogram, encounter for PAD (peripheral artery disease) (HCC) Peripheral vascular disease, unspecified Type 2 diabetes mellitus without complication, without long-term current use of insulin (HCC) CKD (chronic kidney disease), stage III (HCC) Chronic kidney disease, Stage III (moderate) Essential hypertension Unspecified essential hypertension Mixed hyperlipidemia Coronary artery disease involving [place] coronary artery of [place] heart without angina pectoris Moderate episode of recurrent major depressive disorder (HCC) [facility] Diagnosis Diarrhea, unspecified type- Primary Screening for colon cancer Special screening for malignant neoplasms, colon Abdominal spasms Abdominal pain, unspecified site Nausea Nausea alone [facility] Diagnosis Hyperuricemia- Primary Other abnormal blood chemistry Acute gout involving toe of left foot, unspecified cause [facility] Diagnosis Screening for colon cancer Special screening for malignant neoplasms, colon [facility] Diagnosis Tubular adenoma- Primary Benign neoplasm of unspecified site Tubulovillous adenoma Benign neoplasm of unspecified site [facility] Diagnosis Essential hypertension- Primary Unspecified essential hypertension Type 2 DM with CKD stage 3 and hypertension (HCC) Mixed hyperlipidemia Bilateral leg edema Edema Stage 3b chronic kidney disease (HCC) FELICITY (obstructive sleep apnea) Obstructive sleep apnea (adult) (pediatric) Acquired hypothyroidism Unspecified hypothyroidism Coronary artery disease involving [place] heart without angina pectoris, unspecified vessel or lesion type [facility] Diagnosis Solitary kidney, acquired Acquired absence of kidney [facility] Diagnosis Solitary kidney, acquired Acquired absence of kidney [facility] Diagnosis History of renal cell carcinoma- Primary Personal history of colonic polyps Screening for colon cancer Special screening for malignant neoplasms, colon [facility] Diagnosis Acute gout involving toe of left foot, unspecified cause documented in this encounter [facility] for referral (narrative)* Diagnostic Procedure Only (Routine) - Pending Review Specialty Diagnoses / Procedures Referred By Contac t Referred To Contact US IMAGING Diagnoses Solitary kidney, acquired Procedures US KIDNEY/BLADDER US RETROPERITONEAL REAL TIME W/IMAGE COMPLETE Ny Carlton PA-C [address] [place] [address] Us Imaging Referral ID Status Reason Start Date Expiration Date Visits Requested Visits Authorized [id number] Pending Review Auto-Generat ed Referral 11/19/2022 12/18/2023 1 1 * Diagnostic Procedure Only (Routine) - Pending Review Specialty Diagnoses / Procedures Referred By Contac t Referred To Contact XR IMAGING Diagnoses Solitary kidney, acquired Procedures XR CHEST 1V FRONTAL PORT RADIOLOGIC EXAM CHEST SINGLE VIEW Ny Carlton PA-C [address] [place] [address] Xr Imaging Referral ID Status Reason Start Date Expiration Date Visits Requested Visits Authorized [id number] Pending Review Auto-Generat ed Referral 11/19/2022 12/18/2023 1 1 [facility] for referral (narrative)* Diagnostic Procedure Only (Routine) - Pending Review Specialty Diagnoses / Procedures Referred By Contac t Referred To Contact US IMAGING Diagnoses Renal cell carcinoma, unspecified laterality (HCC) Solitary kidney, acquired Procedures US KIDNEY/BLADDER US RETROPERITONEAL REAL TIME W/IMAGE COMPLETE Ny Carlton PA-C [address] [place] [address] Us Imaging Referral ID Status Reason Start Date Expiration Date Visits Requested Visits Authorized [id number] Pending Review Auto-Generat ed Referral 11/18/2023 12/26/2023 1 1 [facility] for referral (narrative)* Outpatient Procedure (Routine) - Authorized Specialty Diagnoses / Procedures Referred By Contac t Referred To Contact [facility] Diagnoses Screening for colon cancer Procedures COLONOSCOPY DIAGNOSTIC COLONOSCOPY FLX DX W/COLLJ SPEC WHEN Festus Roman MD [address] [place] [address] [facility] [address] [place] [phone] Referral ID Status Reason Start Date Expiration Date Visits Requested Visits Authorized [id number] Authorized Auto-Generat ed Referral 04/19/2023 04/19/2024 1 1 [facility] for referral (narrative)* Diagnostic Procedure Only (Routine) - Closed Specialty Diagnoses / Procedures Referred By Contac t Referred To Contact US IMAGING Diagnoses Solitary kidney, acquired Procedures US KIDNEY/BLADDER US RETROPERITONEAL REAL TIME W/IMAGE COMPLETE Ny Carlton PA-C [address] [place] [address] Us Imaging [id number] Referral ID Status Reason Start Date Expiration Date V isits Requested Visits Authorized [id number] Closed Auto-Generate d Referral Patient Cleared - GPS CHRISTINA Approved 11/19/2022 12/18/2023 1 1 [facility] for referral (narrative)* Outpatient Procedure (Routine) - Closed Specialty Diagnoses / Procedures Referred By Contshawn t Referred To Contact [facility] Diagnoses Screening for colon cancer Procedures COLONOSCOPY DIAGNOSTIC COLONOSCOPY FLX DX W/COLLJ SPEC WHEN Festus Roman MD [address] [place] [address] [facility] [address] [place] [id number] Referral ID Status Reason Start Date Expiration Date V isits Requested Visits Authorized [id number] Closed Auto-Generate d Referral 04/19/2023 04/19/2024 1 1 [facility] for visit Narrative* Outpatient Procedure (Routine) - Closed Specialty Diagnoses / Procedures Referred By Lori heard Referred To Contact [facility] Diagnoses Screening for colon cancer Procedures COLONOSCOPY DIAGNOSTIC COLONOSCOPY FLX DX W/COLLJ SPEC WHEN [facility] Festus Hayes MD [address] [place] [address] [facility] [address] [place] [id number] Referral ID Status Reason Start Date Expiration Date V isits Requested Visits Authorized [id number] Closed Auto-Generate d Referral 04/19/2023 04/19/2024 1 1 [facility] Summary Purpose Family History No Family History Records FoundNo Family History Records FoundNo Family History Records Found Advance Directives No Advanced Directives Records FoundNo Advanced Directives Records FoundNo Advanced Directives Records Found Reason for Referral Specialty Diagnoses / Procedures Referred By Lori t Referred To Contact Cardiology Diagnoses Coronary artery disease involving [place] heart without angina pectoris, unspecified vessel or lesion type Procedures CONSULT TO CARDIOLOGY OFFICE/OUTPATIENT [facility] MDM 60-74 MINUTES Sienna Saldivar MD [address] [place] [id number] Referral ID Status Reason Start Date Expiration Date Visits Requested Visits Authorized [id number] Authorized PCP Requested Referral 11/29/2022 11/29/2023 1 1 Specialty Diagnoses / Procedures Referred By Lori t Referred To Contact [facility] Diagnoses Age-related physical debility At high risk for falls Procedures CONSULT TO PHYSICAL THERAPY PHYSICAL THERAPY EVALUATION HIGH COMPLEX 45 MINS Sienna Saldivar MD [facility] [place] [address] [facility] [address] [address] Referral ID Status Reason Start Date Expiration Date Visits Requested Visits Authorized [id number] Authorized PCP Requested Referral Auto-Generate d Referral 11/29/2022 11/29/2023 99 99 Specialty Diagnoses / Procedures Referred By Lori t Referred To Contact General Surgery Diagnoses Screening for colon cancer Procedures CONSULT TO GENERAL SURGERY OFFICE/OUTPATIENT [facility] HIGH MDM 60-74 MINUTES Podlogar, RAISA Sharpe.[employer] [address] [place] [address] Referral ID Status Reason Start Date Expiration Date Visits Requested Visits Authorized [id number] Authorized PCP Requested Referral 04/13/2023 04/12/2024 1 1 Medications Administered Section Inactive Administered Medications - up to 3 most recent administrations Medication Order MAR Action Action Date Dose Rate Site diphenhydrAMINE 12.5-50 mg injection (BENADRYL) 12.5-50 mg, INTRAVENOUS, DIRECTED, Starting on Richelle 05/12/23 at 0930, Until Richelle 05/12/23 at 1329, DOSING DIRECTED BY PHYSICIAN FOR PROCEDURAL SEDATION ONLY, Intraprocedure Given 05/12/2023 9:16 AM EDT 50 mg fentaNYL 50 mcg/mL 25-100 mcg injection (SUBLIMAZE) 25-100 mcg, INTRAVENOUS, DIRECTED, Starting on Richelle 05/12/23 at 0930, Until Richelle 05/12/23 at 1329, DOSING DIRECTED BY PHYSICIAN FOR PROCEDURAL SEDATION ONLY, Intraprocedure Given 05/12/2023 9:20 AM EDT 50 mcg Additional Source Comments INFORMATION SOURCE (unrecogn ized section and content) DATE CREATED AUTHOR AUTHOR'S ORGANIZ ATION 06/24/2022 [facility] DATE CREATED AUTHOR AUTHOR'S ORGANIZ ATION 06/16/2023 [facility] Source Comments (unrecognize d section and content) In the event this informatio n is protected by the Federal Confidentiality of Alcohol and Drug Abuse Patient Records regulations: The Federal rules restrict any use of the information to criminally investigate or prosecute any alcohol or drug abuse patient.[facility] MemorialIn the event this information is protected by the Federal Confidentiality of Alcohol and Drug Abuse Patient Records regulations: The Federal rules restrict any use of the information to criminally investigate or prosecute any alcohol or drug abuse patient.[facility] MemorialIn the event this information is protected by the Federal Confidentiality of Alcohol and Drug Abuse Patient Records regulations: The Federal rules restrict any use of the information to criminally investigate or prosecute any alcohol or drug abuse patient.[facility] MemorialIn the event this information is protected by the Federal Confidentiality of Alcohol and Drug Abuse Patient Records regulations: The Federal rules restrict any use of the information to criminally investigate or prosecute any alcohol or drug abuse patient.[facility] MemorialIn the event this information is protected by the Federal Confidentiality of Alcohol and Drug Abuse Patient Records regulations: The Federal rules restrict any use of the information to criminally investigate or prosecute any alcohol or drug abuse patient.[facility] MemorialIn the event this information is protected by the Federal Confidentiality of Alcohol and Drug Abuse Patient Records regulations: The Federal rules restrict any use of the information to criminally investigate or prosecute any alcohol or drug abuse patient.[facility] MemorialIn the event this information is protected by the Federal Confidentiality of Alcohol and Drug Abuse Patient Records regulations: The Federal rules restrict any use of the information to criminally investigate or prosecute any alcohol or drug abuse patient.[facility] MemorialIn the event this information is protected by the Federal Confidentiality of Alcohol and Drug Abuse Patient Records regulations: The Federal rules restrict any use of the information to criminally investigate or prosecute any alcohol or drug abuse patient.[facility] MemorialIn the event this information is protected by the Federal Confidentiality of Alcohol and Drug Abuse Patient Records regulations: The Federal rules restrict any use of the information to criminally investigate or prosecute any alcohol or drug abuse patient.[facility] MemorialIn the event this information is protected by the Federal Confidentiality of Alcohol and Drug Abuse Patient Records regulations: The Federal rules restrict any use of the information to criminally investigate or prosecute any alcohol or drug abuse patient.[facility] MemorialIn the event this information is protected by the Federal Confidentiality of Alcohol and Drug Abuse Patient Records regulations: The Federal rules restrict any use of the information to criminally investigate or prosecute any alcohol or drug abuse patient.[facility] MemorialIn the event this information is protected by the Federal Confidentiality of Alcohol and Drug Abuse Patient Records regulations: The Federal rules restrict any use of the information to criminally investigate or prosecute any alcohol or drug abuse patient.[facility] MemorialIn the event this information is protected by the Federal Confidentiality of Alcohol and Drug Abuse Patient Records regulations: The Federal rules restrict any use of the information to criminally investigate or prosecute any alcohol or drug abuse patient.[facility] MemorialIn the event this information is protected by the Federal Confidentiality of Alcohol and Drug Abuse Patient Records regulations: The Federal rules restrict any use of the information to criminally investigate or prosecute any alcohol or drug abuse patient.[facility] MemorialIn the event this information is protected by the Federal Confidentiality of Alcohol and Drug Abuse Patient Records regulations: The Federal rules restrict any use of the information to criminally investigate or prosecute any alcohol or drug abuse patient.[facility] MemorialIn the event this information is protected by the Federal Confidentiality of Alcohol and Drug Abuse Patient Records regulations: The Federal rules restrict any use of the information to criminally investigate or prosecute any alcohol or drug abuse patient.[facility] MemorialIn the event this information is protected by the Federal Confidentiality of Alcohol and Drug Abuse Patient Records regulations: The Federal rules restrict any use of the information to criminally investigate or prosecute any alcohol or drug abuse patient.[facility] MemorialIn the event this information is protected by the Federal Confidentiality of Alcohol and Drug Abuse Patient Records regulations: The Federal rules restrict any use of the information to criminally investigate or prosecute any alcohol or drug abuse patient.[facility] MemorialIn the event this information is protected by the Federal Confidentiality of Alcohol and Drug Abuse Patient Records regulations: The Federal rules restrict any use of the information to criminally investigate or prosecute any alcohol or drug abuse patient.[facility] MemorialIn the event this information is protected by the Federal Confidentiality of Alcohol and Drug Abuse Patient Records regulations: The Federal rules restrict any use of the information to criminally investigate or prosecute any alcohol or drug abuse patient.[facility] MemorialIn the event this information is protected by the Federal Confidentiality of Alcohol and Drug Abuse Patient Records regulations: The Federal rules restrict any use of the information to criminally investigate or prosecute any alcohol or drug abuse patient.[facility] MemorialIn the event this information is protected by the Federal Confidentiality of Alcohol and Drug Abuse Patient Records regulations: The Federal rules restrict any use of the information to criminally investigate or prosecute any alcohol or drug abuse patient.[facility] MemorialIn the event this information is protected by the Federal Confidentiality of Alcohol and Drug Abuse Patient Records regulations: The Federal rules restrict any use of the information to criminally investigate or prosecute any alcohol or drug abuse patient.[facility] MemorialIn the event this information is protected by the Federal Confidentiality of Alcohol and Drug Abuse Patient Records regulations: The Federal rules restrict any use of the information to criminally investigate or prosecute any alcohol or drug abuse patient.[facility] MemorialIn the event this information is protected by the Federal Confidentiality of Alcohol and Drug Abuse Patient Records regulations: The Federal rules restrict any use of the information to criminally investigate or prosecute any alcohol or drug abuse patient.[facility] MemorialIn the event this information is protected by the Federal Confidentiality of Alcohol and Drug Abuse Patient Records regulations: The Federal rules restrict any use of the information to criminally investigate or prosecute any alcohol or drug abuse patient.[facility] MemorialIn the event this information is protected by the Federal Confidentiality of Alcohol and Drug Abuse Patient Records regulations: The Federal rules restrict any use of the information to criminally investigate or prosecute any alcohol or drug abuse patient.[facility] MemorialIn the event this information is protected by the Federal Confidentiality of Alcohol and Drug Abuse Patient Records regulations: The Federal rules restrict any use of the information to criminally investigate or prosecute any alcohol or drug abuse patient.[facility] MemorialIn the event this information is protected by the Federal Confidentiality of Alcohol and Drug Abuse Patient Records regulations: The Federal rules restrict any use of the information to criminally investigate or prosecute any alcohol or drug abuse patient.[facility] MemorialIn the event this information is protected by the Federal Confidentiality of Alcohol and Drug Abuse Patient Records regulations: The Federal rules restrict any use of the information to criminally investigate or prosecute any alcohol or drug abuse patient.[facility] MemorialIn the event this information is protected by the Federal Confidentiality of Alcohol and Drug Abuse Patient Records regulations: The Federal rules restrict any use of the information to criminally investigate or prosecute any alcohol or drug abuse patient.[facility] MemorialIn the event this information is protected by the Federal Confidentiality of Alcohol and Drug Abuse Patient Records regulations: The Federal rules restrict any use of the information to criminally investigate or prosecute any alcohol or drug abuse patient.[facility] Reason for Visit (unrecogniz ed section and content) Reason Onset Date Comments Refill Request 02/17/2022 Reason Comments Lab order request Reason Comments Blood Pressure Elevated with edema in bilateral feet Edema Both feet Reason Comments Release Of Medical Records Reason Comments Follow Up Regarding what fernanda dave and heart doctor said- she's here to update you. Reason Comments Results Reason Onset Date Comments Population Health Navigation Outreach 07/15/2022 [facility] Reason Onset Date Comments Refill Request 11/03/2022 Reason Comments Orders Reason Onset Date Comments Population Health Navigation Outreach 11/23/2022 [facility] Reason Comments Orders Reason Comments Follow Up kidney cancer f/u Reason Comments Follow Up Reason Comments Erroneous encounter-disregard Reason Onset Date Comments Refill Request 03/29/2023 Reason Comments Diarrhea Loose stool on and o ff for the last week Reason Comments Consult Screening for colon cancer Specialty Diagnoses / Procedures Referred By Contac t Referred To Contact General Surgery Diagnoses Screening for colon cancer Procedures CONSULT TO GENERAL SURGERY OFFICE/OUTPATIENT NEW HIGH MDM 60-74 MINUTES CrystallogAnnemarie cloud APRN.MARCUS [address] [place] [address] Referral ID Status Reason Start Date Expiration Date V isits Requested Visits Authorized [id number] Closed PCP Requested Referral 04/13/2023 04/12/2024 1 1 Reason Comments gout flare-up Reason Comments Follow Up Review colonoscopy r esults. Reason Comments F/U 6 Month Reason Comments Radiology US Specialty Diagnoses / Procedures Referred By Contac t Referred To Contact US IMAGING Diagnoses Solitary kidney, acquired Procedures US KIDNEY/BLADDER US RETROPERITONEAL REAL TIME W/IMAGE COMPLETE Ny Carlton PA-C [address] [place] [address] Us Imaging [place] [address] Referral ID Status Reason Start Date Expiration Date V isits Requested Visits Authorized [id number] Closed Auto-Generate d Referral Patient Cleared - GPS CHRISTINA Approved 11/19/2022 12/18/2023 1 1 Reason Onset Date Comments Refill Request 05/23/2023 Care Teams (unrecognized sec tion and content) Public Relations Professional Relationship Specialty Start Date End Date Sienna Saldivar MD [address] [place] [address] PCP - General Family Practice 10/06/16 [facility], [facility] [address] [place] [address] Physician Cardiology 12/07/17 Public Relations Professional Relationship Specialty Start Date End Date Sienna Saldivar MD [address] [place] [address] PCP - General Family Practice 10/06/16 [facility], [facility] [address] [place] [address] Physician Cardiology 12/07/17 Public Relations Professional Relationship Specialty Start Date End Date Sienna Saldivar MD [address] [place] [address] PCP - General Family Practice 10/06/16 [place] [address] [place] [address], [place] [address] Physician Cardiology 12/07/17 Public Relations Professional Relationship Specialty Start Date End Date Sienna Saldivar MD [address] [place] [address] PCP - General Family Practice 10/06/16 [place] [address] [place] [address], [place] [address] Physician Cardiology 12/07/17 Public Relations Professional Relationship Specialty Start Date End Date Sienna Saldivar MD [address] [place] [address] PCP - General Family Medicine 10/06/16 [facility] [address] [place] [address] Physician Cardiology 12/07/17 Public Relations Professional Relationship Specialty Start Date End Date Sienna Saldivar MD [address] [place] [address] PCP - General Family Medicine 10/06/16 [facility], Toya Neel [address] [place] [address] Physician Cardiology 12/07/17 Public Relations Professional Relationship Specialty Start Date End Date Sienna Saldivar MD [address] [place] [address] PCP - General Family Medicine 10/06/16 [facility], Toya Neel [address] [place] [address] Physician Cardiology 12/07/17 Public Relations Professional Relationship Specialty Start Date End Date Sienna Saldivar MD [address] [place] [address] PCP - General Family Medicine 10/06/16 [place] [address] [place] [address], [place] [address] Physician Cardiology 12/07/17 Public Relations Professional Relationship Specialty Start Date End Date Sienna Saldivar MD [address] [place] [address] PCP - General Family Medicine 10/06/16 [place] [address] [place] [address], [place] [address] Physician Cardiology 12/07/17 Public Relations Professional Relationship Specialty Start Date End Date Sienna Saldivar MD [address] [place] [address] PCP - General Family Medicine 10/06/16 [facility], [facility] [address] [place] [address] Physician Cardiology 12/07/17 Public Relations Professional Relationship Specialty Start Date End Date Sienna Saldivar MD [address] [place] [address] PCP - General Family Medicine 10/06/16 [facility], Toya Neel [address] [place] [address] Physician Cardiology 12/07/17 Public Relations Professional Relationship Specialty Start Date End Date Sienna Saldivar MD [address] [place] [address] PCP - General Family Medicine 10/06/16 [facility], Toya Neel [address] [place] [address] Physician Cardiology 12/07/17 Public Relations Professional Relationship Specialty Start Date End Date Sienna Saldivar MD [address] [place] [address] PCP - General Family Medicine 10/06/16 Toya Robertson [address] [place] [address], [place] [address] Physician Cardiology 12/07/17 Public Relations Professional Relationship Specialty Start Date End Date Sienna Saldivar MD [address] [place] [address] PCP - General Family Medicine 10/06/16 [facility] [address] [place] [address] Physician Cardiology 12/07/17 Public Relations Professional Relationship Specialty Start Date End Date Sienna Saldivar MD [address] [place] [address] PCP - General Family Medicine 10/06/16 Toya Robertson [address] [place] [address] Physician Cardiology 12/07/17 Public Relations Professional Relationship Specialty Start Date End Date Sienna Saldivar MD [address] [place] [address] PCP - General Family Medicine 10/06/16 Toya Robertson [address] [place] [address] Physician Cardiology 12/07/17 Public Relations Professional Relationship Specialty Start Date End Date Sienna Saldivar MD [address] [place] [address] PCP - General Family Medicine 10/06/16 Toya Robertson [address] [facility] [address] [place] [address] Physician Cardiology 12/07/17 Public Relations Professional Relationship Specialty Start Date End Date Sienna Saldivar MD [address] [place] [address] PCP - General Family Medicine 10/06/16 Toya Robertson [address] [facility] [address] [place] [address] Physician Cardiology 12/07/17 Public Relations Professional Relationship Specialty Start Date End Date Sienna Saldivar MD [address] [place] [address] PCP - General Family Medicine 10/06/16 Toya Robertson [address] [facility] [address] [place] [address] Physician Cardiology 12/07/17 Public Relations Professional Relationship Specialty Start Date End Date Sienna Saldivar MD [address] [place] [address] PCP - General Family Medicine 10/06/16 Toya Robertson [address] [place] [address] Physician Cardiology 12/07/17 Public Relations Professional Relationship Specialty Start Date End Date Sienna Saldivar MD [address] [place] [address] PCP - General Family Medicine 10/06/16 Toya Robertson [address] [place] [address] Physician Cardiology 12/07/17 Public Relations Professional Relationship Specialty Start Date End Date Sienna Saldivar MD [address] [place] [address] PCP - General Family Medicine 10/06/16 Toya Robertson MD [address] [place] [address] Physician Cardiology 12/07/17 Public Relations Professional Relationship Specialty Start Date End Date Sienna Saldivar MD [address] [place] [address] PCP - General Family Medicine 10/06/16 Toya Robertson MD [address] [place] [address] Physician Cardiology 12/07/17 Public Relations Professional Relationship Specialty Start Date End Date Sienna Saldivar MD [address] [place] [address] PCP - General Family Medicine 10/06/16 Toya Robertson MD [address] [address] Physician Cardiology 12/07/17 Public Relations Professional Relationship Specialty Start Date End Date Sienna Saldivar MD [address] [place] [address] PCP - General Family Medicine 10/06/16 Toya Robertson MD [address] [address] Physician Cardiology 12/07/17 Public Relations Professional Relationship Specialty Start Date End Date Sienna Saldivar MD [address] [place] [address] PCP - General Family Medicine 10/06/16 Toya Robertson MD [address] [address] Physician Cardiology 12/07/17 FOR RECORDS PERTAINING TO PATIENTS WHO ARE OR HAVE BEEN ENROLLED IN A CHEMICAL DEPENDENCY/SUBSTANCEABUSE PROGRAM, SOME INFORMATION MAY BE OMITTED. This clinical summary was aggregated from multiple sources. Caution should be exercised in using it in the provision of clinical care. This summary normalizes information from multiple sources, and as a consequence, information in this document may materially change the coding, format and clinical context of patient data. In addition, data may be omitted in some cases. CLINICAL DECISIONS SHOULD BE BASED ON THE PRIMARY CLINICAL RECORDS. [employer] [facility]. provides no warranty or guarantee of the accuracy or completeness of information in this document.
[2023-10-16 14:26] VITALS: BP 136/74; PULSE 56; RESP 12; TEMP 36.4; O2SAT 98
== END 2023-10-16 14:28 | disposition home or self-care (01) ==
PROVIDERS: Emergency Provider Emergency Medicine; PCP Family Medicine; Visit Provider Emergency Medicine
DX: S20.212A Contusion of left front wall of thorax, initial encounter (principal); N18.30 Chronic kidney disease, stage 3 unspecified; W19.XXXA Unspecified fall, initial encounter
CPT/HCPCS: 71250; 99283

== ENCOUNTER → 2023-12-13 | Outpatient (CLI) | payer MEDICARE, OTHER, SELFPAY ==
--- NOTE | 2023-12-16 13:49 | STRESSREP ---
Stress Test Report Date: 12/13/2023 Procedure: Pharmacologic stress nuclear imaging study Indications: Shortness of breath Consent: Per the patient Procedure: The patient underwent pharmacologic (Regadenoson) evaluation with a peak heart rate of 94 beats per minute (65% predicted maximal heart rate) and a peak blood pressure of 126/60 mmHg. The baseline ECG demonstrated sinus bradycardia. EKG during lexiscan infusion revealed no significant ischemic changes. EKG post infusion revealed no significant ischemic changes [There were no cardiac dysrhythmias pretest, during pharmacologic infusion, or recovery]. [There was no complaint of chest discomfort during pharmacologic infusion or recovery]. The examination was discontinued secondary to completion of protocol. Impression: 1. Lexiscan stress test test is negative for Lexiscan infusion induced EKG changes of ischemia. 2. Lexiscan stress test test is negative for Lexiscan infusion induced chest pain. 3. Results of the nuclear portion of the test is as below Myocardial perfusion imaging study: Technique: The patient was injected with 14.8 millicuries of technetium 99m Cardiolite and subsequently rest SPECT Cardiolite nuclear imaging was obtained in the horizontal long, vertical long, and short axis views. The patient underwent pharmacologic [Regadenoson 0.4mg] evaluation. Please see above for details. The patient was injected with 44.9 millicuries of technetium 99m Cardiolite and subsequently stress SPECT Cardiolite nuclear imaging was obtained in the horizontal long, vertical long, and short axis views. A gated Cardiolite study at peak stress was obtained. Interpretation: Rest and stress SPECT Cardiolite nuclear imaging status post realignment, normalization, and attenuation correction demonstrate rest images reveal normal myocardial radioisotope uptake. On the stress images there is decreased myocardial radioisotope uptake in the anterior wall compared to the rest images suggestive of mild anterior ischemia. Gated images reveal no significant regional wall motion abnormalities. The reported LVEF is greater than 70%. Impression: 1. There is evidence of mild anterior ischemia. 2. Estimated ejection fraction is greater than 70%. This note was generated with [employer] software. It may contain incorrect words, spelling, and punctuation that were not noted in checking the note before signing.
== END | disposition home or self-care (01) ==
LOC: CVS 05:53
PROVIDERS: PCP Family Medicine; Visit Provider Family Medicine
DX: R06.09 Other forms of dyspnea (principal)
CPT/HCPCS: 78452; 93017; A9500; A4216; J2785

== ENCOUNTER 2024-12-06 10:25 | Emergency (ER) | payer MEDICARE, OTHER, SELFPAY ==
[2024-12-06 10:26] VITALS: BP 152/74; PULSE 55; RESP 21; TEMP 36.5; O2SAT 92
[2024-12-06 10:27] VITALS: BP 152/74; PULSE 55; RESP 21; TEMP 36.5; O2SAT 92
--- NOTE | 2024-12-06 10:36 | EDS_ITS ---
HPI History of Present Illness Chief Complaint: Abn Labs Narrative Narrative: Patient is a 79-year-old female with past medical history of hypothyroidism, prediabetic, CKD, CAD who presented to the emergency department with chief complaint of abnormal blood work. Patient states that she had blood work obtained yesterday and was noted during her visit for follow-up that she needed to be sent to the emergency department as her liver enzymes are elevated. Patient's primary care physician called in to notify us of these findings noted that she recently just tested positive for RSV as well. Patient states that she has been feeling unwell for the last several days and her has similar symptoms. She denies any alcohol use, drug use, tobacco use. Patient states that she has not taken Tylenol in approximately 6 months. Patient denies any salicylate use. Patient has no abdominal pain at this point time. States that her stools have been pale and denies any black tarry stools or blood in her stool. PFSH [facility], [facility] Medical History Hypothyroid Osteoporosis Arthritis Pre-diabetes Heart disease H/O malignant neoplasm of kidney CKD (chronic kidney disease) stage 3, GFR 30-59 ml/min Home Medications ?Medication ?Instructions ?Recorded ?Last Taken ?Type bupropion HCl 150 mg tablet,12 hr 150 mg PO BID ##60 0 04/05/16 Unknown Rx sustained-release carvedilol 6.25 mg tablet 6.25 mg PO BIDCM ##60 Unknown Rx levothyroxine 100 mcg tablet 100 mcg PO DAILY@0600 ##3 0 04/05/16 Unknown Rx losartan 50 mg tablet 50 mg PO DAILY ##30 04/05/16 Unknown Rx nystatin 100,000 unit/gram topical 1 applic topical ##1 04/05/16 Unknown Rx ointment pravastatin 80 mg tablet 80 mg PO QHS ##30 04/05/16 U nknown Rx diazepam 5 mg tablet 5 mg PO Q8 PRN Muscle Spasm #15 03/06/18 Unknown Rx tabs acetaminophen 500 mg tablet 1,000 mg PO Q8H PRN Pain 0 12/06/24 Unknown History albuterol sulfate 90 mcg/actuation 2 puff inhalation Q 4H PRN 12/06/24 Unknown History aerosol inhaler shortness of breath or wheez ing allopurinol 300 mg tablet 300 mg PO DAILY 12/06/24 Unk nown History benzonatate 100 mg capsule 100 mg PO TID PRN cough Unknown History
--- NOTE | 2024-12-06 10:36 | EX.ED.DYSGE1 ---
HPI History of Present Illness Chief Complaint: Abn Labs Narrative Narrative: Patient is a 79-year-old female with past medical history of hypothyroidism, prediabetic, CKD, CAD who presented to the emergency department with chief complaint of abnormal blood work. Patient states that she had blood work obtained yesterday and was noted during her visit for follow-up that she needed to be sent to the emergency department as her liver enzymes are elevated. Patient's primary care physician called in to notify us of these findings noted that she recently just tested positive for RSV as well. Patient states that she has been feeling unwell for the last several days and her has similar symptoms. She denies any alcohol use, drug use, tobacco use. Patient states that she has not taken Tylenol in approximately 6 months. Patient denies any salicylate use. Patient has no abdominal pain at this point time. States that her stools have been pale and denies any black tarry stools or blood in her stool. PFSH PFS Medical History Hypothyroid Osteoporosis Arthritis Pre-diabetes Heart disease H/O malignant neoplasm of kidney CKD (chronic kidney disease) stage 3, GFR 30-59 ml/min Home Medications ?Medication ?Instructions ?Recorded ?Last Taken ?Type bupropion HCl 150 mg tablet,12 hr 150 mg PO BID ##60 04/05/16 Unknown Rx sustained-release carvedilol 6.25 mg tablet 6.25 mg PO BIDCM ##60 04/05/16 Unknown Rx levothyroxine 100 mcg tablet 100 mcg PO DAILY@0600 ##30 04/05/16 Unknown Rx losartan 50 mg tablet 50 mg PO DAILY ##30 04/05/16 Unknown Rx nystatin 100,000 unit/gram topical 1 applic topical 0600,2200 ##1 04/05/16 Unknown Rx ointment pravastatin 80 mg tablet 80 mg PO QHS ##30 04/05/16 Unknown Rx diazepam 5 mg tablet 5 mg PO Q8 PRN Muscle Spasm #15 03/06/18 Unknown Rx tabs acetaminophen 500 mg tablet 1,000 mg PO Q8H PRN Pain 12/06/24 Unknown History albuterol sulfate 90 mcg/actuation 2 puff inhalation Q4H PRN 12/06/24 Unknown History aerosol inhaler shortness of breath or wheezing allopurinol 300 mg tablet 300 mg PO DAILY 12/06/24 Unknown History benzonatate 100 mg capsule 100 mg PO TID PRN cough 12/06/24 Unknown History colchicine 0.6 mg tablet 0.6 mg PO DAILY 12/06/24 Unknown History duloxetine 30 mg capsule,delayed 30 mg PO TID 12/06/24 Unknown History release (Cymbalta) furosemide 20 mg tablet 20 mg PO BID PRN edema 12/06/24 Unknown History levofloxacin 750 mg tablet 750 mg PO DAILY 12/06/24 Unknown History ondansetron HCl 4 mg tablet 4 mg PO Q8H PRN nausea and vomiting 12/06/24 Unknown History oxybutynin chloride 10 mg 10 mg PO DAILY 12/06/24 Unknown History tablet,extended release 24 hr Allergy/AdvReac Type Severity Reaction Status Date / Time acetaminophen (From Vicodin) Allergy Unknown Verified 12/06/24 10:28 adhesive tape Allergy Unknown Verified 12/06/24 10:28 amitriptyline Allergy Unknown Verified 12/06/24 10:28 codeine Allergy Unknown Verified 12/06/24 10:28 diclofenac (From Voltaren) Allergy Unknown Verified 12/06/24 10:28 flurbiprofen Allergy Unknown Verified 12/06/24 10:28 hydrochlorothiazide (From Allergy Unknown Verified 12/06/24 10:28 Dyazide) hydrocodone (From Vicodin) Allergy Unknown Verified 12/06/24 10:28 ibuprofen (From Motrin) Allergy Unknown Verified 12/06/24 10:28 lisinopril (From Prinivil) Allergy Unknown Verified 12/06/24 10:28 morphine Allergy Unknown Verified 12/06/24 10:28 Penicillins Allergy Unknown Verified 12/06/24 10:28 ramipril (From Altace) Allergy Unknown Verified 12/06/24 10:28 Sulfa (Sulfonamide Allergy Unknown Verified 12/06/24 10:28 Antibiotics) Tetracyclines Allergy Unknown Verified 12/06/24 10:28 thiethylperazine (From Allergy Unknown Verified 12/06/24 10:28 Torecan) triamterene (From Dyazide) Allergy Unknown Verified 12/06/24 10:28 Surgical History History of carpal tunnel surgery Hx of cholecystectomy H/O: hysterectomy Social History household members: spouse housing: house pets and animals: Yes Smoking Status: Never smoker ROS ROS ED ROS Narrative Constitutional: Complains of whole body aches, chills denies headache, lightheadedness Eyes: Denies change in vision double vision blurry vision Cardiovascular: Denies chest pain Respiratory: Denies shortness of breath Abdomen: Complains of nausea vomiting diarrhea denies abdominal pain : Denies urinary symptoms Neurological: Denies numbness, weakness, tingling Musculoskeletal: Denies back pain Skin: Denies rashes or lesions EXAM Physical Exam Narrative Exam Narrative: General: Patient lying in bed rest comfortably did not appear to be in acute distress Head: Atraumatic, normocephalic Eyes: PERRL bilaterally, EOMI bilateral, no conjunctival injection noted Neck: Soft, supple, trachea midline Cardiovascular: Patient bradycardic with a regular rhythm Respiratory: Clear to auscultation bilaterally Abdomen: Soft, nondistended, nontender to palpation Extremities: +5/5 strength noted in the bilateral upper and lower extremities, no pedal edema on exam Neurological: Patient following commands knew that she was at [facility] year is 2024 Skin: Warm, dry, intact Const Vital Signs: 12/06/24 10:26 12/06/24 10:27 12/06/24 10:37 Temperature 97.7 F L 97.7 F L Temperature Source Oral Oral Pulse Rate 55 L 55 L Respiratory Rate 21 H 21 H Respiratory Effort Short of Breath Respiratory Pattern Irregular Blood Pressure 152/74 H 152/74 H Blood Pressure Mean 100 100 Pulse Ox 92 92 Oxygen Delivery Method Room Air Room Air 12/06/24 11:31 Temperature Temperature Source Pulse Rate 51 L Respiratory Rate 14 Respiratory Effort Respiratory Pattern Blood Pressure 177/90 H Blood Pressure Mean 119 Pulse Ox 93 Oxygen Delivery Method Room Air MDM MDM MDM Narrative Medical decision making narrative: Patient is a 71-year-old female who presented to the emergency department with a chief complaint of abnormal blood work obtained in the outpatient setting with transaminitis. Patient will have a workup performed here on the differential diagnosis includes but not limited to transaminitis secondary to viral etiology, Tylenol toxicity, salicylates, cholelithiasis, choledocholithiasis. Once workup is obtained reviewed she will be reevaluated. Patient CBC was reviewed showed no evidence leukocytosis white blood count normal at 5.1, he was 13.5, platelet count was noted be 112 has a history of thrombocytopenia coronary previous blood draws. Patient's INR normal at 1, PT normal at 13.5. Patient sodium normal 139, potassium normal 4.6, creatinine normal at 1.04. Patient's total bilirubin normal at 0.56, direct bilirubin normal at 0.22. Patient's AST and ALT were 106 and 200 respectively however this is improved from her blood draw yesterday when her AST and ALT were 344 and 287 respectively. Patient lipase normal at 41, urinalysis reviewed showed no evidence of infection. Patient salicylate level less than 0.5, Tylenol less than 5, alcohol level less than 10.1. Patient's ultrasound of her abdomen showed fatty infiltration of the liver, status post cholecystectomy and minimal central intrahepatic biliary ductal dilation. Mildly dilated common bile duct most likely secondary to post cholecystectomy. Did discuss case with supervisor mill Dr. Epstein and he states that this is supportive care nothing to do immediately at this point in time. Did discuss results with the patient and she would like to go home at this point time. Patient was advised to have her liver enzymes repeated early next week. Patient is agreeable this plan as well as significant other at bedside all question concerns answered she was discharged home in stable condition. Lab Data Labs: Laboratory Results - last 24 hr 12/06/24 12/06/24 12/06/24 11:06 11:06 11:56 WBC Cancelled 5.1 Corrected WBC Cancelled RBC Cancelled 4.45 Hgb Cancelled 13.5 Hct Cancelled 42.6 MCV Cancelled 95.7 MCH Cancelled 30.3 MCHC Cancelled 31.7 L RDW Std Deviation Cancelled 49.9 H RDW Coeff of Mandy Cancelled 14.1 Plt Count Cancelled 112 L MPV Cancelled 11.5 Immature Gran % (Auto) Cancelled 1.200 H Neut % (Auto) Cancelled 52.0 Lymph % (Auto) Cancelled 35.1 [place] % (Auto) Cancelled 8.6 Eos % (Auto) Cancelled 2.5 Baso % (Auto) Cancelled 0.6 Absolute Neuts (auto) Cancelled 2.7 Absolute Lymphs (auto) Cancelled 1.79 Total Counted Cancelled Neutrophils % (Manual) Cancelled Band Neutrophils % Cancelled Lymphocytes % (Manual) Cancelled Monocytes % (Manual) Cancelled Eosinophils % (Manual) Cancelled Basophils % (Manual) Cancelled Metamyelocytes % Cancelled Myelocytes % Cancelled Promyelocytes % Cancelled Blast Cells % Cancelled Plasma Cell % (Manual) Cancelled Other Cells % Cancelled Nucleated RBC % Cancelled 0 Nucleated RBCs/100 WBC Cancelled Differential Comment Cancelled Diff Path Review Cancelled Hypersegmented Neuts Cancelled Atypical Lymphocytes Cancelled Reactive Lymphocytes Cancelled Smudge Cells Cancelled Toxic Granulation Cancelled Toxic Vacuolation Cancelled Dohle Bodies Cancelled Beulah Rods Cancelled Platelet Estimate Cancelled Plt Morphology Comment Cancelled RBC Morphology Cancelled Cancelled Polychromasia Cancelled Hypochromasia Cancelled Basophilic Stippling Cancelled Anisocytosis Cancelled Microcytosis Cancelled Macrocytosis Cancelled Spherocytes Cancelled Sickle Cells Cancelled Target Cells Cancelled Tear Drop Cells Cancelled Ovalocytes Cancelled Stomatocytes Cancelled [place] Bodies Cancelled Akil Cells Cancelled Bite Cells Cancelled Crenated Cell Cancelled Acanthocytes (Spur) Cancelled Rouleaux Cancelled Schistocytes Cancelled PT Cancelled 13.5 INR Cancelled 1.0 APTT Cancelled 21.2 L Sodium 139 Potassium 4.6 Chloride 104 Carbon Dioxide 25.3 Anion Gap 9 BUN 15 Creatinine 1.04 Est GFR (MDRD) Non-Af 55 L BUN/Creatinine Ratio 14.2 Glucose 108 H Calcium 9.8 Total Bilirubin 0.56 Direct Bilirubin 0.22 AST 106 H ALT 200 H Alkaline Phosphatase 237 H Total Protein 7.3 Albumin 3.7 Globulin 3.6 Lipase 41 Urine Color Urine Clarity Urine pH Ur Specific [place] Urine Protein Urine Glucose (UA) Urine Ketones Urine Occult Blood Urine Nitrite Urine Bilirubin Urine Urobilinogen Ur Leukocyte Esterase Urine RBC Urine WBC Ur Squamous Epith Cells Urine Bacteria Urine Mucus Salicylates < 0.5 L Acetaminophen < 5.0 L Ethyl Alcohol < 10.1 12/06/24 12:12 WBC Corrected WBC RBC Hgb Hct MCV MCH MCHC RDW Std Deviation RDW Coeff of Mandy Plt Count MPV Immature Gran % (Auto) Neut % (Auto) Lymph % (Auto) [place] % (Auto) Eos % (Auto) Baso % (Auto) Absolute Neuts (auto) Absolute Lymphs (auto) Total Counted Neutrophils % (Manual) Band Neutrophils % Lymphocytes % (Manual) Monocytes % (Manual) Eosinophils % (Manual) Basophils % (Manual) Metamyelocytes % Myelocytes % Promyelocytes % Blast Cells % Plasma Cell % (Manual) Other Cells % Nucleated RBC % Nucleated RBCs/100 WBC Differential Comment Diff Path Review Hypersegmented Neuts Atypical Lymphocytes Reactive Lymphocytes Smudge Cells Toxic Granulation Toxic Vacuolation Dohle Bodies Beulah Rods Platelet Estimate Plt Morphology Comment RBC Morphology Polychromasia Hypochromasia Basophilic Stippling Anisocytosis Microcytosis Macrocytosis Spherocytes Sickle Cells Target Cells Tear Drop Cells Ovalocytes Stomatocytes [place] Bodies Cope Cells Bite Cells Crenated Cell Acanthocytes (Spur) Rouleaux Schistocytes PT INR APTT Sodium Potassium Chloride Carbon Dioxide Anion Gap BUN Creatinine Est GFR (MDRD) Non-Af BUN/Creatinine Ratio Glucose Calcium Total Bilirubin Direct Bilirubin AST ALT Alkaline Phosphatase Total Protein Albumin Globulin Lipase Urine Color Yellow Urine Clarity Clear Urine pH 6.[address] [place] 1.025 Urine Protein 15 H Urine Glucose (UA) Normal Urine Ketones Negative Urine Occult Blood 10 H Urine Nitrite Negative Urine Bilirubin Negative Urine Urobilinogen Normal Ur Leukocyte Esterase 100 H Urine RBC 0 SEEN Urine WBC 5-10 SEEN Ur Squamous Epith Cells 0 SEEN Urine Bacteria RARE Urine Mucus 0 SEEN Salicylates Acetaminophen Ethyl Alcohol Radiography Diagnostic Testing: Clinical Impression(s) from Imaging Studies Abdomen Ultrasound 12/06/24 10:56 IMPRESSION: Fatty infiltration of the liver. Status post cholecystectomy and minimal central intrahepatic biliary ductal dilatation. Mildly dilated common bile duct most likely secondary to the post cholecystectomy. Reading Location: [place] [address] Discharge Plan Triage Chief Complaint: Abn Labs ED Provider: Yovany Anna Dx/Rx/DC Orders Clinical Impression: Transaminitis, Respiratory syncytial virus (RSV) infection Prescriptions: No Action losartan 50 MG tablet 50 mg PO DAILY Qty: 30 0RF bupropion HCl 150 MG tablet sustained-release 12 hr 150 mg PO BID Qty: 60 0RF carvedilol 6.25 MG tablet 6.25 mg PO BIDCM Qty: 60 0RF nystatin 1 APPLIC ointment 1 applic topical 0600,2200 Qty: 1 0RF levothyroxine 100 MCG tablet 100 mcg PO DAILY@0600 Qty: 30 0RF pravastatin 80 MG tablet 80 mg PO QHS Qty: 30 0RF diazepam 5 MG tablet 5 mg PO Q8 PRN (Reason: Muscle Spasm) Qty: 15 0RF ondansetron HCl 4 mg tablet 4 mg PO Q8H PRN (Reason: nausea and vomiting) levofloxacin 750 mg tablet 750 mg PO DAILY Patient Comments: PT TOOK 1 DOSE LAST NIGHT (12/05/24) benzonatate 100 mg capsule 100 mg PO TID PRN (Reason: cough) albuterol sulfate 90 mcg/actuation HFA aerosol inhaler 2 puff inhalation Q4H PRN (Reason: shortness of breath or wheezing) furosemide 20 mg tablet 20 mg PO BID PRN (Reason: edema) allopurinol 300 mg tablet 300 mg PO DAILY colchicine 0.6 mg tablet 0.6 mg PO DAILY oxybutynin chloride 10 mg tablet extended release 24hr 10 mg PO DAILY duloxetine [Cymbalta] 30 mg capsule,delayed release(DR/EC) 30 mg PO TID acetaminophen 500 MG tablet 1,000 mg PO Q8H PRN (Reason: Pain) Primary Care Provider: Randy Saldivar Referrals: Randy Saldivar MD [Primary Care Provider] - Activity Restrictions/Additional Instructions: Have your liver enzymes repeated early next week by your primary care physician. Return with worsening symptoms or other concerns. Your liver enzymes are getting better based on blood draw here today compared to yesterday. Ensure that you are hydrating with plenty of fluids and continue supportive care. Print Language: Occitan Disposition Disposition: Home, Self Care
--- NOTE | 2024-12-06 10:56 | US_ITS ---
PROCEDURE: ABDOMEN LIMITED 12/06/2024 REASON FOR EXAM: TRANSAMINITIS COMPARISON: None FINDINGS: Liver: Diffusely echogenic suggesting fatty infiltration. Liver measures 14.8 cm. Minimally dilated central intrahepatic biliary ducts. Gallbladder: Surgically absent. Common bile duct: Dilated measuring up to 10 mm. . Pancreas: Normal Other: Visualized portions of the right kidney are unremarkable. No right upper quadrant ascites. US/Abdomen Limited IMPRESSION: Fatty infiltration of the liver. Status post cholecystectomy and minimal central intrahepatic biliary ductal dil atation. Mildly dilated common bile duct most likely secondary to the post cholecystectomy. Reading Location: [facility]
[2024-12-06 11:31] VITALS: BP 177/90; PULSE 51; RESP 14; O2SAT 93
[2024-12-06 11:43] LABS: AST(SGOT) 106 U/L (<=31); Alanine Aminotransfer ALT/SGPT 200 U/L (<=34); Albumin, Serum 3.7 g/dL (3.4-4.8); Alkaline Phosphatase 237 U/L (35-104); Anion Gap 9 (5-15); BUN 15 mg/dL (4-19); BUN/Creat Ratio 14.2 RATIO (10-20); Bilirubin, Direct 0.22 mg/dL (0.00-0.30); Calcium,Total 9.8 mg/dL (7.6-11.0); Carbon Dioxide 25.3 mmol/L (21.0-32.0); Chloride 104 mmol/L (98-108); Creatinine, Serum 1.04 mg/dL (0.70-1.20); EST Glomerular Filtration Rate 55 (>60); Globulin 3.6 g/dL (2.2-4.2); Glucose 108 mg/dL (70-99); Lipase 41 U/L (13-75); Potassium 4.6 mmol/L (3.3-5.1); Protein, Total 7.3 g/dL (5.9-8.4); Sodium Level 139 mmol/L (133-145); Total Bilirubin 0.56 mg/dL (0.00-1.30)
[2024-12-06 11:44] LABS: Acetaminophen (Tylenol) Level < 5.0 ug/mL (8.0-19.0); Alcohol, Blood (Medical)-Serum < 10.1 mg/dL (<=10.0); Salicylate < 0.5 mg/dL (2.8-20.0)
[2024-12-06 12:08] LABS: Absolute Lymphocyte Count 1.79 X10^3/uL (0.83-4.51); Absolute Neutrophil Count 2.7 X10^3/uL (2.0-7.7); Basophil# 0.03 X10^3/uL; Basophil% 0.6 % (0-1); Eosinophil# 0.13 X10^3/uL; Eosinophils% 2.5 % (0-5); Hematocrit 42.6 % (37-47); Hemoglobin 13.5 g/dL (12.0-15.0); Lymphocyte # 1.79 X10^3/ul (0.83-4.51); Lymphocyte % 35.1 % (19-41); Mean Corp Hgb Conc 31.7 g/dL (32-36); Mean Corpuscular Hgb 30.3 pg (27.0-32.0); Mean Corpuscular Volume 95.7 fL (81-99); Mean Platelet Vol. 11.5 fl (6.2-12.0); Monocyte# 0.44 X10^3/uL; Monocyte% 8.6 % (0-10); NRBC Flagged by Analyzer 0 % (0-5); Neutrophil # 2.65 X10^3/uL (2.7-7.7); Platelet Count 112 K/mm3 (150-450); RBC Distribution Width CV 14.1 % (11.6-14.6); RBC Distribution Width SD 49.9 fl (35.1-43.9); Red Blood Count 4.45 M/mm3 (4.2-5.4); White Blood Count 5.1 K/mm3 (4.4-11.0)
[2024-12-06 12:14] VITALS: BMI 47.2
[2024-12-06 12:15] LABS: Partial Thromboplast Time 21.2 Seconds (24.1-36.2); Prothrombin Time (Protime)PT. 13.5 SECONDS (11.7-14.9)
[2024-12-06 12:21] LABS: Mucous, Urine 0 SEEN /hpf (<or=2+); Red Blood Cells-Urine 0 SEEN /hpf (0-5); Squamous Epithelial Cells - UA 0 SEEN /hpf (5-10)
[2024-12-06 12:27] LABS: Color, Urine Yellow (Yellow); Glucose, Dipstick Normal (Normal); Ketone-Dipstick Negative (Negative); Leukocyte Esterase-Dipstick 100 /ul (Negative); Nitrite-Dipstick Negative (Negative); Occult Blood-Urine 10 /ul (Negative); Protein-Dipstick 15 mg/dl (Negative); Specific Gravity, Urine 1.025 (1.002-1.030); Urine Bilirubin Dipstick Negative (Negative); Urine Clarity Clear (Clear); Urine Urobilinogen Normal (Normal)
[2024-12-06 12:34] LABS: Bacteria RARE /hpf (None Seen)
[2024-12-06 12:35] LABS: White Blood Cells 5-10 SEEN /hpf (0-5)
[2024-12-06 12:49] VITALS: BP 180/66; PULSE 50; RESP 16; TEMP 36.6; O2SAT 93
== END 2024-12-06 12:56 | disposition home or self-care (01) ==
PROVIDERS: Emergency Provider Emergency Medicine; PCP Family Medicine; Visit Provider Emergency Medicine
DX: R74.01 Elevation of levels of liver transaminase levels (principal); N18.30 Chronic kidney disease, stage 3 unspecified; K76.0 Fatty (change of) liver, not elsewhere classified; B97.4 Respiratory syncytial virus as the cause of diseases classified elsewhere; Z90.49 Acquired absence of other specified parts of digestive tract; E03.9 Hypothyroidism, unspecified; I25.10 Atherosclerotic heart disease of native coronary artery without angina pectoris; Z79.890 Hormone replacement therapy; Z79.899 Other long term (current) drug therapy; Z79.51 Long term (current) use of inhaled steroids
CPT/HCPCS: 76705; 80048; 80076; 80143; 80179; 81001; 82077; 83690; 85025; 85610; 85730; 99282

== ENCOUNTER → 2025-07-17 | Outpatient (CLI) | payer MEDICARE, OTHER, SELFPAY ==
--- NOTE | 2025-07-17 13:08 | ECHOD_ITS ---
Reason For Study Reason For Study: CORONARY ARTERY DISEASE Procedure This was a 2D Doppler, Color Flow transthoracic echocardiogram. The study was technically difficult. Unable to utilize Definity due to left nephrectomy. Exam performed in department. Left Ventricle Normal size and thickness. The left ventricular ejection fraction is 65 %. Normal diastology for age. Right Ventricle Normal right ventricle. Atria The left and right atria are normal. Mitral Valve Trivial mitral valve insufficiency. Tricuspid Valve Trivial tricuspid valve insufficiency. Normal pulmonary artery pressure. Aortic Valve Trisinus/trileaflet aortic valve. Trivial aortic valve insufficiency. Pulmonic Valve The pulmonic valve is not well visualized. Great Vessels Normal sized aortic root. Pericardium/Pleural No pericardial effusion. Medication Unable to utilize Definity due to left nephrectomy. MMode/2D Measurements & Calculations LVIDd: 4.1 cm IVSd: 1.1 cm LVOT diam: 2.1 cm LVIDs: 2.5 cm LVPWd: 1.0 cm RVDd: 3.8 cm FS: 39.8 % LVOT area: 3.4 cm2 Ao root diam: 3.0 cm asc Aorta Diam: 3.5 cm LAV(MOD- bp): 37.0 ml LAV(MOD- bp) Indexed: 17.1 ml/m2 LAV(MOD- sp2): 39.3 ml LAV(MOD- sp4): 34.3 ml SV(MOD- sp4): 50.1 ml LVAd ap4: 25.3 cm2 LVAd ap2: 21.0 cm2 LVLd ap4: 7.1 cm LVLd ap2: 7.4 cm SI(MOD- sp4): 23.2 ml/m2 EDV(MOD-sp4): 76.0 ml EDV(MOD-sp2): 49.1 ml EDV(sp4-el): 76.6 ml EDV(sp2-el): 50.6 ml LVAs ap4: 12.7 cm2 LVAs ap2: 11.8 cm2 LVLs ap4: 5.3 cm LVLs ap2: 6.6 cm ESV(MOD-sp4): 25.9 ml ESV(MOD-sp2): 19.3 ml ESV(sp4-el): 25.6 ml ESV(sp2-el): 17.9 ml EF(MOD-sp4): 66.0 % EF(MOD-sp2): 60.8 % EF(sp4-el): 66.6 % SV(MOD-sp2): 29.8 ml SV(sp4-el): 51.0 ml Ao sinus diam: 3.1 cm SI(MOD-sp2): 13.8 ml/m2 Ao ST [place]: 2.7 cm LA dimension(2D): 3.7 cm LA A4 area: 14.3 cm2 RA A4 area: 11.0 cm2 TAPSE: 1.7 cm Time Measurements MV dec time: 0.26 sec Doppler Measurements & Calculations MV E max cash: 85.5 cm/sec Lat Peak E' Cash: 11.6 cm/sec Med Peak E' Cash: 8.0 cm/sec MV A max cash: 106.3 cm/sec E/E' lat: 7.4 E/E' med: 10.7 MV E/A: 0.80 Ao V2 max: 139.1 cm/sec LV V1 max: 108.1 cm/sec MV dec slope: 322.9 cm/sec2 Ao max P.7 mmHg LV V1 max P.7 mmHg Ao V2 mean: 98.6 cm/sec LV V1 mean P.8 mmHg Ao mean P.4 mmHg LV V1 mean: 77.6 cm/sec Ao V2 VTI: 33.5 cm LV V1 VTI: 25.0 cm AV (velocity ratio): 0.75 LYLA(I,D): 2.5 cm2 LYLA(V,D): 2.6 cm2 SV(LVOT): 84.4 ml PA V2 max: 116.9 cm/sec TR max cash: 204.0 cm/sec TR max P.7 mmHg ECHO/Echo Complete Interpretation Summary The study was technically difficult. The left ventricular ejection fraction is 65 %. Ordering Physician: Sotero Ortega Referring Physician: Sotero Ortega MD Performed By: Tigist Vela RDCS
== END | disposition home or self-care (01) ==
LOC: CVS 13:08
PROVIDERS: PCP Family Medicine; Referring Provider Internal Medicine Cardiovascular Disease; Visit Provider Internal Medicine Cardiovascular Disease
DX: I25.10 Atherosclerotic heart disease of native coronary artery without angina pectoris (principal); R94.31 Abnormal electrocardiogram [ECG] [EKG]
CPT/HCPCS: 93306